=== PATIENT | female | born 1990 | race Caucasian/White ===

== ENCOUNTER 2018-08-12 14:34 | Emergency (ER) | payer BC, SELFPAY ==
[2018-08-12 14:34] VITALS: BP 131/67; PULSE 95; RESP 18; TEMP 37.3; O2SAT 98; BMI 26.3
[2018-08-12] MEDS: Loperamide 2 MG Capsule 4 MG PO (15:10)
[2018-08-12] MEDS: 0.9% Normal Saline 1,000 ML 1000 ML IV (15:10)
[2018-08-12] MEDS: Dicyclomine 10 MG Capsule 20 MG PO (15:10)
[2018-08-12 15:26] LABS: Absolute Lymphocyte Count 0.99 X10^3/ul (0.83-4.51); Absolute Neutrophil Count 5.8 X10^3/uL (2.0-7.7); Eosinophil# 0.01 X10^3/uL; Eosinophils% 0.1 % (0-5); Hematocrit 36.1 % (37-47); Hemoglobin 12.2 g/dl (12.0-15.0); Lymphocyte # 0.99 X10^3/ul (4.0); Lymphocyte % 14.1 % (19-41); Mean Corp Hgb Conc 33.8 g/gl (32-36); Mean Corpuscular Hgb 30.3 pg (27.0-32.0); Mean Corpuscular Volume 89.8 fL (81-99); Mean Platelet Vol. 9.9 fl (6.2-12.0); Monocyte# 0.23 X10^3/uL; Monocyte% 3.3 % (0-10); Neutrophil # 5.76 X10^3/uL (2.7-7.7); Neutrophil % 82.2 % (47-70); Platelet Count 147 K/mm3 (150-450); RBC Distribution Width CV 12.2 % (11.6-14.6); RBC Distribution Width SD 39.8 fl (35.1-43.9); Red Blood Count 4.02 M/mm3 (4.2-5.4)
[2018-08-12 15:30] LABS: Anion Gap 8 (5-15); BUN 8 mg/dL (7-18); BUN/Creat Ratio 18.3 RATIO (10-20); Chloride 108 mmol/L (98-107); Creatinine, Serum 0.44 mg/dL (0.55-1.02); EST Glomerular Filtration Rate 186 mL/min (>60); Est Glom Filt Rate - Afr Amer 225 mL/min (>60); Estimated Creatinine Clearance 161.68 ml/min; Glucose 93 mg/dL (74-106); Potassium 3.1 mmol/L (3.5-5.1); Sodium Level 138 mmol/L (136-145)
[2018-08-12 15:35] LABS: POSITIVE COUNT NO; POSITIVE DIFFERENTIAL NO; POSITIVE MORPHOLOGY NO
[2018-08-12 15:38] LABS: Mucous, Urine 0 SEEN /hpf (<or=2+); Red Blood Cells-Urine 0 SEEN /hpf (0-5)
[2018-08-12 15:49] LABS: Color, Urine Yellow (Yellow); Glucose, Dipstick Normal (Normal); Ketone-Dipstick 5 mg/dl (Negative); Leukocyte Esterase-Dipstick 25 /ul (Negative); Nitrite-Dipstick Negative (Negative); Occult Blood-Urine Negative /ul (Negative); Protein-Dipstick Negative (Negative); Urine Bilirubin Dipstick Negative (Negative); Urine Clarity Clear (Clear); Urine Urobilinogen Normal (Normal)
--- NOTE | 2018-08-12 15:54 | ED.DCSUM_ITS ---
- ER Visit Summary Date of Service: 08/12/18 Chief Complaint: [Diarrhea and abdominal cramping] History of Present Illness: The patient is a 27 F [presents the emergency department with symptoms that started 3 days ago. Patient is having about 5 watery stools per day. She describes diffuse abdominal cramping that is intermittent. Patient concerned because she 17 weeks . She has had nausea but no vomiting. She has not had any fever but she is had some chills. She denies urinary symptoms. She has not felt the baby move yet. Patient is . She has not had any vaginal bleeding.] Physical Examination: [HEENT-PERRLA, EOMI. Cranial nerves II through XII grossly intact. TMs clear. Mucous membranes moist. No adenopathy. Cardiovascular-regular rate and rhythm without murmur or ectopy Lungs-clear to auscultation, chest wall stable without crepitus or subcu em physema Abdomen-normoactive bowel sounds, soft, nontender, no rebound or rigidity, no peritoneal signs. Extremities-intact ?4, normal range of motion, normal pulses, atraumatic] Test Results: [CBC with differential showed a white blood cell count 7.0, hemoglobin 12, hematocrit 36, platelets 147. Chemistries unremarkable other than a depressed potassium at 3.1 for which I did give her 40 mEq of potassium chloride p.o. Urinalysis was unremarkable.] heart tones were 128. Emergency Department Course and Treatment: [Patient was given Imodium and Bentyl.] Patient was given a liter normal same fluid bolus. Treatment Plan: [Patient will be given a prescription for Bentyl and instruct to use Imodium as needed.] Disposition: [Discharged home in stable condition. Patient advised to push fluids and return to ER if worsening abdominal pain, fever, persistent vomiting, dehydration, or condition should worsen anyway.] Impression: [Viral gastroenteritis] This note was generated with WriteOn dictation software. It may contain incorrect words, spelling, and punctuation that were not noted in review of the chart prior to signing ED Disposition - Plan for ED Patient: Referrals: Zoltan Rodriguez DO [Primary Care Provider] -
[2018-08-12 16:02] LABS: Bacteria RARE /hpf (None Seen); Squamous Epithelial Cells - UA 0-5 SEEN /hpf (5-10); White Blood Cells 0-5 SEEN /hpf (0-5)
--- NOTE | 2018-08-12 16:02 | ED.DEP ---
ED Disposition - Plan for ED Patient: Instructions: ED Gastroenteritis Viral Prescriptions: Dicyclomine HCl [Bentyl] 20 mg PO TIDAC #20 cap Referrals: Gris Garay MD [STAFF PHYSICIAN] - 3-5 Days
[2018-08-12 16:10] VITALS: BP 102/60; PULSE 87; RESP 16; O2SAT 100
== END 2018-08-12 16:13 | disposition home or self-care (01) ==
PROVIDERS: Emergency Provider Emergency Medicine; Family Provider Family Medicine; PCP Family Medicine
DX: A08.4 Viral intestinal infection, unspecified (principal)
CPT/HCPCS: 80048; 81001; 85025; 96360; 99284; J7030; A4216

== ENCOUNTER 2019-01-23 10:55 | Inpatient (IN) | payer BC, MEDICAID, SELFPAY ==
[2019-01-23] VITALS (19 sets, daily range): BP systolic 94–127; BP diastolic 36–76; PULSE 67–88; RESP 12–18; TEMP 36.1–37.7; O2SAT 95–100; BMI 33.3
[2019-01-23] MEDS: Lactated Ringers 1,000 ML 999 ML IV (11:35)
[2019-01-23 11:51] LABS: Absolute Lymphocyte Count 1.44 X10^3/uL (0.83-4.51); Absolute Neutrophil Count 7.3 X10^3/uL (2.0-7.7); Basophil# 0.01 X10^3/uL; Basophil% 0.1 % (0-1); Eosinophil# 0.05 X10^3/uL; Eosinophils% 0.5 % (0-5); Hematocrit 37.5 % (37-47); Lymphocyte # 1.44 X10^3/ul (4.0); Lymphocyte % 15.3 % (19-41); Mean Corpuscular Hgb 28.8 pg (27.0-32.0); Mean Corpuscular Volume 90.1 fL (81-99); Mean Platelet Vol. 10.3 fl (6.2-12.0); Monocyte# 0.53 X10^3/uL; Monocyte% 5.6 % (0-10); NRBC Flagged by Analyzer 0 % (0-5); Neutrophil # 7.33 X10^3/uL (2.7-7.7); Neutrophil % 77.8 % (47-70); Platelet Count 195 K/mm3 (150-450); RBC Distribution Width CV 13.7 % (11.6-14.6); RBC Distribution Width SD 44.5 fl (35.1-43.9); Red Blood Count 4.16 M/mm3 (4.2-5.4); White Blood Count 9.4 K/mm3 (4.4-11.0)
--- NOTE | 2019-01-23 12:17 | PCM.PN.BLA ---
Progress Note I have re-examined the patient. There are no clinical changes since date of exam.
[2019-01-23] MEDS: Cefazolin 2 GM in 0.9% Normal Saline 100 ML IV (12:32)
[2019-01-23] MEDS: Oxytocin 30 units/NS 500 ml 30 UNITS/500 ML IV.SOLN 167 UNITS IV (12:51)
--- NOTE | 2019-01-23 13:14 | OP.PCM_ITS ---
Report of Operation Date of Procedure: 01/23/19 Pre-Operative Diagnosis: term elective repeat c/s Post-Operative Diagnosis: Same, live female infant Surgery/Procedure Performed:: repeat LTCS Description of Surgical Findings:: normal tubes and ovaries bilaterally - no complications meat boner and slicer: Francine Chilel Type of Anesthesia:: Spinal Delivery Classification: Scheduled Final PAYTON: 01/19/19 Final PAYTON Source: LMP Gestational age: 40 Weeks and 4 Days Indications for : Repeat Elective Description of Procedure: Operative note: After informed consent was obtained the patient was taken to the operating room she was given spinal anesthesia. He was placed in the supine position. She was then prepped and draped in normal sterile fashion. Once spinal anesthesia was found to be adequate skin incision was made with a scalpel in a Pfannenstiel fashion. It was carried down to the underlying layer of the fascia. Fascia was then incised midline with scapel and extended laterally using curved ruggiero. 2 straight Chichester's were placed in the superior aspect of the fascial edge and the rectus muscles were dissected off sharply. Attention was then turned to the inferior aspect where again the fascial edge was grasped with 2 straight Chichester clamps tented up and the rectus muscle dissected off sharply. At this time the rectus muscles were grasped in the midline using 2 Allis clamps and scalpel was used to separate the rectus muscles. Using blunt force the peritoneum was then entered. Metzenbaums were used to take down the rectus muscles inferiorly as well as the peritoneum. At this time the vesicouterine peritoneum was identified. Metzenbaum scissors were used to create a bladder flap and then taken down digitally. Uterine incision was made in a low transverse fashion with the scalpel and then entered bluntly. Gentle opposing traction was placed to extend the uterine incision. The membranes were ruptured amniotic fluid clear. 's head was then brought to the uterine incision was delivered atraumatically followed by the rest 's body. At this time delayed cord clamping was performed mouth nose were suctioned. Infant was then handed to the waiting nursery team. The placenta was then removed with gentle traction. The uterus was removed from the intra-abdominal cavity is wrapped in a moist lap. He was cleared of all clots and debris using a moist lap. Ring clamps were placed on the uterine angles. #1 Vicryl suture was used in a running locked fashion for the first layer. Followed by second imbricating layer with #1 Vicryl. At this time then the uterus was placed back into abdominal cavity uterine incision was evaluated and noted to be of good hemostasis. Tubes and ovaries were evaluated they were normal. The peritoneum was grasped with Kellys. Peritoneum was reapproximated using #2 Vicryl suture in a running fashion. Also was evaluated and the oozing was coagulated using the Bovie. Good hemostasis was appreciated. Rita was placed over the muscle. The fascia was then reapproximated using #1 Vicryl in a running fashion. Subcutaneous layer was evaluated and Bovie was used for any small oozing that was noted per #2-0 plain gut suture was then used to reapproximate the subcutaneous layer 4-0 Monocryl was used to reapproximate the skin in a subcutaneous fashion. Dry sterile dressing was applied. Instrument lap needle count were correct ?2. Anticipated normal postoperative course for this patient. Amniotic Membrane Rupture Type: Artificial Amniotic Fluid Description: Clear Placenta Disposition: [facility] Drain: Ross to straight drain Cord Entanglement: None Cord Vessel Description: 3 Vessels Esitmated Blood Loss (ml): 700 Infant Gender: Female (1 minute): 9 (5 minute): 9 Delayed cord clamping: Yes Pre-op Antibiotic Given: Ancef 2 grams IV x1 Pt instructed on risks of surgery: Bleeding, Anesthesia Risks, Infection, Need for Future C-Sections, Injury to surrounding structure(s) including bowel and bladder Complications: None - Admit VTE Documentation VTE Present on Admission: Yes VTE Mechan Device Prophylaxis: SCD's VTE Pharm Prophylaxis ordered?: Yes
[2019-01-23] MEDS: Lactated Ringers 1,000 ML 100 ML IV ×2 (13:35→19:28)
[2019-01-23] MEDS: Lactated Ringers 500 ML 999 ML IV (14:00)
[2019-01-23] MEDS: Ondansetron 4 MG/2 ML Vial IV (15:50)
[2019-01-23] MEDS: Sodium Citrate/Citric Acid 30 ML UDC PO (16:05)
[2019-01-23] MEDS: proMETHazine 25 MG/ML Syringe 12.5 MG IV (18:21)
[2019-01-23] MEDS: Ketorolac 30 MG/ML Syringe IV (18:22)
[2019-01-24] VITALS (8 sets, daily range): BP systolic 107–121; BP diastolic 50–61; PULSE 67–84; RESP 16–18; TEMP 36.6–37.2; O2SAT 97–100
[2019-01-24] MEDS: Ketorolac 30 MG/ML Syringe IV ×4 (00:14→17:27)
[2019-01-24] MEDS: 0.9% Saline Lock 10 ML Syringe IV ×3 (05:30→17:27)
[2019-01-24] MEDS: Enoxaparin 40 MG/0.4 ML Syringe SC (05:49)
[2019-01-24] MEDS: Acetaminophen 500 MG Tablet 1000 MG PO ×3 (05:57→22:26)
[2019-01-24 06:00] LABS: Hematocrit 33.9 % (37-47); Hemoglobin 10.8 g/dL (12.0-15.0); Mean Corp Hgb Conc 31.9 g/dL (32-36); Mean Corpuscular Hgb 29.3 pg (27.0-32.0); Mean Corpuscular Volume 92.1 fL (81-99); Mean Platelet Vol. 10.6 fl (6.2-12.0); Platelet Count 156 K/mm3 (150-450); RBC Distribution Width CV 13.6 % (11.6-14.6); RBC Distribution Width SD 46.3 fl (35.1-43.9); Red Blood Count 3.68 M/mm3 (4.2-5.4); White Blood Count 9.6 K/mm3 (4.4-11.0)
--- NOTE | 2019-01-24 07:56 | PCM.PN.OB ---
Subjective: pt seen at bedside, doing well. pt reports good pain control. lochia mild. Denies CP, SOB, dizziness. Lochia mild. Breast feeding - Physical Exam General: Alert, Oriented x3 Abdomen: Soft, Non-Distended, - - fundus firm . incision site dressing dry and intact Extremities: No Calf Tenderness Neurological: Cranial nerves II-XII grossly intact Vital Signs Temp Pulse Resp BP Pulse Ox 97.8 F 80 16 107/54 L 98 01/24/19 04:10 01/24/19 06:00 01/24/19 06:00 01/24/19 04:10 01/24/19 06:00 Oxygen Delivery Method Room Air Weight: 79.946 kg Body Mass Index (BMI) 33.3 Intake and Output for Last 24 Hours 01/22/19 01/23/19 01/24/19 23:59 23:59 23:59 Intake Total 1651 / 1651 1790 / 1790 Output Total 800 / 800 1000 / 1000 Balance 851 / 851 790 / 790 Laboratory Tests Past 24 Hrs 01/23/19 01/23/19 01/24/19 11:30 11:30 05:45 WBC 9.4 9.6 RBC 4.16 L 3.68 L Hgb 12.0 10.8 L Hct 37.5 33.9 L MCV 90.1 92.1 MCH 28.8 29.3 MCHC 32.0 31.9 L RDW Std Deviation 44.5 H 46.3 H RDW Coeff of Em 13.7 13.6 Plt Count 195 156 MPV 10.3 10.6 Immature Gran % (Auto) 0.700 Neut % (Auto) 77.8 H Lymph % (Auto) 15.3 L [place] % (Auto) 5.6 Eos % (Auto) 0.5 Baso % (Auto) 0.1 Absolute Neuts (auto) 7.3 Absolute Lymphs (auto) 1.44 Absolute Nucleated RBC 0.00 Nucleated RBC % 0 Blood Type A POSITIVE Antibody Screen NEGATIVE Medical Necessity - Tobacco Use Smoking Status: Never smoker Assessment/Plan POD#1, doing well routine care dc oneill abdominal binder ambulation today pain mgmt
[2019-01-25] MEDS: Ketorolac 30 MG/ML Syringe IV ×2 (00:49→05:53)
[2019-01-25] MEDS: 0.9% Saline Lock 10 ML Syringe IV ×2 (00:50→05:53)
[2019-01-25 01:05] VITALS: BP 139/70; PULSE 90; RESP 18; TEMP 36.9
--- NOTE | 2019-01-25 01:43 | NURSING ---
Bladder scanned d/t Pt c/o urgency. Bladder scan result >999ml. Will notify
[2019-01-25] MEDS: Enoxaparin 40 MG/0.4 ML Syringe SC (05:53)
--- NOTE | 2019-01-25 08:34 | PCM.PN.OB ---
Subjective: pt seen at bedside, doing well. pt denies concerns at this time. oneill back in place due to retention. bottle feeding. lochia mild. pain well controlled - Physical Exam General: Alert, Oriented x3 Abdomen: Soft, Non-Distended, - - incision dressing dry and intact Extremities: No Calf Tenderness Vital Signs Temp Pulse Resp BP Pulse Ox 98.5 F 90 18 139/70 H 97 01/25/19 01:05 01/25/19 01:05 01/25/19 01:05 01/25/19 01:05 01/24/19 14:00 Oxygen Delivery Method Room Air Weight: 79.946 kg Body Mass Index (BMI) 33.3 Intake and Output for Last 24 Hours 01/23/19 01/24/19 01/25/19 23:59 23:59 23:59 Intake Total 1651 / 1651 1790 / 1790 Output Total 800 / 800 1750 / 1750 1100 / 1100 Balance 851 / 851 40 / 40 -1100 / -1100 Medical Necessity - Tobacco Use Smoking Status: Never smoker Assessment/Plan POD#2, doing well- urinary retention 1) dc oneill at 12p 2) dc toradol 3) ambulation- if not able to void will dc home with oneill or can stay until tomorrow if needed . 4) plan for dc today
--- NOTE | 2019-01-25 08:43 | PCM.DCCSEC ---
Discharge Diet: No Restrictions Discharge Activity: Return to Normal Activity, May Not Drive - for 2 weeks, May not drive while taking narcotic pain medications., May Shower, May Take a Tub Bath - in 7 days. May resume sexual activity in: 4-6 weeks Lifting Restrictions: 20 pounds Additional Activity Instructions:: Nothing in the vagina for 4-6 weeks. You may return to work/school in 6 weeks. Call your doctor if your incision/area has: Continuous Slow Oozing, Sudden Increased Bleeding, Increased Pain/ Swelling, Increased Redness, Foul Smelling Discharge Call your doctor if you observe: Fever of 101 or Higher, Using more than one pad per hour - for 2 hours Suture Line Care: Avoid Pulling/Pushing, Avoid Pinching/Bending Cleanse incision/area with: Keep Dressing Clean & Dry Additional Instructions: If you experience any of the following, contact your healthcare provider. Bleeding that soaks a pad every hour for 2 hours Fever 100.4 or higher Unrelieved incision or abdominal pain Swelling, redness, discharge or bleeding from your incision or episiotomy site Your incision begins to separate Problems urinating (including inability to urinate or burning while urinating). Visual changes Severe headache Flu-like symptoms Pain or redness in one of both of your breasts Pain, warmth, tenderness or swelling in your legs, especially the calf area Frequent nausea and vomiting Symptoms of depression or anxiety If you experience any of the following, call 911 or go to the nearest Emergency Room. Chest pain Problems breathing Seizure activity Partial or complete paralysis of a body part, slurred speech, weakness or drooping of the face, or a sudden inability to walk or hold your balance Allergies/Adverse Reactions: Allergies No Known Allergies Allergy (Verified 01/23/19 11:49) Medications to take at Discharge Vits [Prenatabs FA ] 1 tab PO DAILY 04/23/16 Dicyclomine HCl [Bentyl] 20 mg PO TIDAC #20 cap 08/12/18 Ibuprofen [Motrin] 600 mg PO Q6H PRN PRN #30 tab 01/25/19 Oxycodone HCl/Acetaminophen [Percocet 5/325] 1 tablet PO Q4H PRN PRN 7 Days #20 tablet 01/25/19 Senna/Docusate Sodium [Senokot-S] 1 tab PO DAILY PRN #20 tab 01/25/19 SimETHICONE [Mylicon] 80 mg PO PCHS PRN #30 tab 01/25/19 The following prescriptions were given: Ibuprofen [Motrin] 600 mg PO Q6H PRN PRN #30 tab PRN Reason: Mild Pain (-09/17) Transmission Status: Received by [id number] SimETHICONE [Mylicon] 80 mg PO PCHS PRN #30 tab PRN Reason: Indigestion/stomach pain Transmission Status: Received by [facility] Oxycodone HCl/Acetaminophen [Percocet 5/325] 1 tablet PO Q4H PRN PRN 7 Days #20 tablet PRN Reason: Pain Transmission Status: Sent to [email or web address] Senna/Docusate Sodium [Senokot-S] 1 tab PO DAILY PRN #20 tab PRN Reason: Constipation Transmission Status: Received by [facility] Follow-Up: Call to make an appointment with your doctor for an incision check in 1-2 weeks. You will also need a 6 week post- follow up appointment. Test results from this visit will be discussed in further detail at your follow-up appointment, if applicable. Please Follow Up With: Gris Garay MD - Call to make an appointment for an incision check in 1-2 [phone] When: You will need a post- check in 6 weeks. Primary Care Physician: Zoltan Rodriguez DO [Primary Care Provider] -
[2019-01-25 08:55] VITALS: BP 127/67; PULSE 75; RESP 16; TEMP 36.9; O2SAT 99
[2019-01-25] MEDS: Acetaminophen 500 MG Tablet 1000 MG PO (10:01)
[2019-01-25 12:00] VITALS: BP 119/76; PULSE 84; RESP 16; TEMP 37.6; O2SAT 97
[2019-01-25 13:50] VITALS: BP 119/76; PULSE 84; RESP 84; TEMP 37.6; O2SAT 97
[2019-01-25] MEDS: oxyCODONE 5 MG Tablet PO (14:20)
== END 2019-01-25 14:30 | disposition home or self-care (01) | DRG 788 ==
PROVIDERS: Admitting Provider Obstetrics & Gynecology; Family Provider Family Medicine; PCP Family Medicine; Referring Provider Obstetrics & Gynecology; Visit Provider Obstetrics & Gynecology
PROC: (CPT 59514; principal; 2019-01-23 11:45)
DX: O65.5 Obstructed labor due to abnormality of maternal pelvic organs (principal); O34.211 Maternal care for low transverse scar from previous cesarean delivery; Z37.0 Single live birth; Z3A.40 40 weeks gestation of pregnancy
CPT/HCPCS: 85025; 85027; 86850; 86900; 99218; J7120; A4216; G0378; J2405

== ENCOUNTER 2023-02-16 22:04 | Emergency (ER) | payer BC, SELFPAY ==
[2023-02-16 22:05] VITALS: BP 149/90; PULSE 120; RESP 18; TEMP 37.2; O2SAT 98; BMI 29.7
[2023-02-16 23:15] LABS: Bacteria 0 SEEN /hpf (None Seen); Mucous, Urine 0 SEEN /hpf (<or=2+); Red Blood Cells-Urine 0 SEEN /hpf (0-5)
[2023-02-16 23:18] LABS: Color, Urine Yellow (Yellow); Glucose, Dipstick Normal (Normal); Ketone-Dipstick 15 mg/dl (Negative); Leukocyte Esterase-Dipstick 500 /ul (Negative); Nitrite-Dipstick Negative (Negative); Occult Blood-Urine Negative /ul (Negative); Protein-Dipstick Negative (Negative); Urine Bilirubin Dipstick Negative (Negative); Urine Clarity Clear (Clear); Urine Urobilinogen Normal (Normal)
[2023-02-16 23:22] VITALS: BP 121/55; PULSE 65; RESP 17; O2SAT 99
[2023-02-16 23:23] LABS: Squamous Epithelial Cells - UA 5-10 SEEN /hpf (5-10)
[2023-02-16 23:24] LABS: White Blood Cells 0-5 SEEN /hpf (0-5)
--- NOTE | 2023-02-16 23:28 | RAD_ITS ---
INDICATION: pain EXAMINATION/TECHNIQUE: X-RAY - RIGHT XR Shoulder Min 2 Views COMPARISON: None. FINDINGS: SOFT TISSUES: Unremarkable. BONES/JOINTS: No fracture or dislocation. No significant degenerative changes. No erosive changes. RAD/Shoulder min 2 Views IMPRESSION: Unremarkable views of the right shoulder. Electronically Signed: Rui Jones DO at 23:41 EDT ,
--- NOTE | 2023-02-16 23:28 | RAD_ITS ---
INDICATION: fever EXAMINATION/TECHNIQUE: X-RAY - XR Chest 1 View COMPARISON: None. FINDINGS: LINES/DEVICES: None. LUNGS: No consolidation or evidence of an effusion. No evidence of edema or a pneumothorax. MEDIASTINUM AND CARDIOVASCULAR STRUCTURES: Cardiac silhouette is normal in size and contour. Mediastinum is unremarkable. BONES AND SOFT TISSUES: No acute abnormality. RAD/Chest 1 View IMPRESSION: No evidence of cardiopulmonary disease. Electronically Signed: Rui Jones DO at 23:41 EDT ,
[2023-02-16 23:29] LABS: Absolute Lymphocyte Count 0.46 X10^3/uL (0.83-4.51); Absolute Neutrophil Count 10.3 X10^3/uL (2.0-7.7); Basophil# 0.02 X10^3/uL; Basophil% 0.2 % (0-1); Hematocrit 39.7 % (37-47); Hemoglobin 13.2 g/dL (12.0-15.0); Lymphocyte # 0.46 X10^3/ul (0.83-4.51); Mean Corp Hgb Conc 33.2 g/dL (32-36); Mean Corpuscular Hgb 30.4 pg (27.0-32.0); Mean Corpuscular Volume 91.5 fL (81-99); Mean Platelet Vol. 9.8 fl (6.2-12.0); Monocyte# 0.59 X10^3/uL; Monocyte% 5.2 % (0-10); NRBC Flagged by Analyzer 0 % (0-5); Neutrophil # 10.29 X10^3/uL (2.7-7.7); Neutrophil % 90.2 % (47-70); POSITIVE DIFFERENTIAL YES; Platelet Count 187 K/mm3 (150-450); RBC Distribution Width CV 11.3 % (11.6-14.6); RBC Distribution Width SD 38.5 fl (35.1-43.9); Red Blood Count 4.34 M/mm3 (4.2-5.4); White Blood Count 11.4 K/mm3 (4.4-11.0)
[2023-02-16 23:39] LABS: Differential Indicated SCAN CRITERIA MET
[2023-02-16 23:48] LABS: ALB/GLOB Ratio 1.1 RATIO (0.9-2.4); AST(SGOT) 11 U/L (15-37); Alanine Aminotransfer ALT/SGPT 21 U/L (13-56); Albumin, Serum 4.2 g/dL (3.2-5.0); Alkaline Phosphatase 59 U/L (45-117); Anion Gap 9 (5-15); BUN 11 mg/dL (7-18); BUN/Creat Ratio 11.7 RATIO (10-20); Calcium,Total 9.4 mg/dL (8.5-10.1); Chloride 103 mmol/L (98-107); Creatinine, Serum 0.94 mg/dL (0.55-1.02); EST Glomerular Filtration Rate 74 mL/min (>60); Est Glom Filt Rate - Afr Amer 90 mL/min (>60); Estimated Creatinine Clearance 69.21 ml/min; Globulin 3.7 g/dL (2.2-4.2); Glucose 129 mg/dL (74-106); Potassium 3.5 mmol/L (3.5-5.1); Protein, Total 7.9 g/dL (6.4-8.2); Sodium Level 138 mmol/L (136-145)
[2023-02-17] MEDS: Ketorolac 15 MG/ML Vial IV
--- NOTE | 2023-02-17 00:02 | EX.ED.UPPERE ---
HPI History of Present Illness Chief Complaint: Upper Extremity Injury Narrative Narrative: 32-year-old female presenting with right shoulder pain. She states that she moved a washer despite trimming it a little bit the other day and did not remember hurting herself but now complains of pain in the right anterior shoulder and the axilla. She states that her did hurts to put deodorant on. She does have some pain with range of motion but she is able to range it some. Patient denies any direct trauma. She states she is just felt off for a couple of days. She feels like she has a fever but has not checked her temperature. She does state that she had some dysuria and has been treating herself with [id number] medicine for which she thought was a yeast infection. She is vomiting or nausea. She denies cough or shortness of breath. She denies abdominal pain. She has no diarrhea or constipation. No vaginal complaints. PFSH PFSH Medical History no medical history Home Medications ibuprofen 600 mg tablet 600 mg PO Q6H PRN PRN Mild Pain (-09/17) #30 tabs 01/25/19 [Rx Last Taken Unknown] Allergy/AdvReac Type Severity Reaction Status Date / Time No Known Allergies Allergy Verified 02/16/23 22:08 Social History Smoking Status: Never smoker ROS ROS ED Constitutional Constitutional ED: Denies chills, fever(s) or sweats Eyes Eyes: Denies blurry vision or change in vision ENT ENT ED: Denies ear pain or sore throat Cardiovascular Cardiovascular: Denies chest pain, palpitations or racing heartbeat Respiratory/Chest Respiratory/Chest: Reports other Details: Right axillary pain ; Denies cough, dyspnea or sputum Gastrointestinal Gastrointestinal: Denies abdominal pain, constipation, diarrhea, nausea or vomiting Genitourinary Genitourinary ED: Denies dysuria, hematuria or urinary frequency Musculoskeletal Musculoskeletal: Reports other Details: Right shoulder pain ; Denies arthralgias, myalgias or neck pain Integumentary Denies abscess, Abrasions or rash Neurologic Neurologic: Denies headache(s), paresthesias or weakness Psychiatric Psychiatric: Denies anxiety, depression, suicidal ideation or suicidal thoughts Endocrine Endocrinology: Denies polydipsia or polyuria EXAM Physical Exam Const Vital Signs: 02/16/23 22:05 02/16/23 22:53 02/16/23 23:22 Temperature 99.0 F Temperature Source Temporal Pulse Rate 120 H 65 Respiratory Rate 18 17 Respiratory Pattern Normal Blood Pressure 149/90 H 121/55 H Blood Pressure Mean 109 77 Pulse Ox 98 99 Oxygen Delivery Method Room Air Room Air Positive well nourished General Appearance ED: NAD HEENT Reports moist mucous membranes normocephalic and atraumatic Eyes PERRL and EOMs intact bilaterally Chest Wall inspection of chest normal Chest Narrative: There is pain in the right axilla. There is no masses palpated. No lymphadenopathy. Patient has some limitation of range of motion without evidence of a septic arthrosis. No rashes. Resp normal respiratory effort and clear to auscultation bilaterally Auscultation: Negative for rales, rhonchi or wheezes Cardio regular rate and regular rhythm GI non-tender Back/Spine no CVA tenderness Neuro oriented x3 and CN's II-XII intact bilaterally Sensorium / Orientation: alert Motor Exam: strength 5/5 throughout Psych mental status grossly normal Skin Lesions: no lesions Rashes: no rashes MDM MDM MDM Narrative Medical decision making narrative: Patient initially complaining of right axillary pain. She thought she injured herself moving a washer. She does have some pain with range of motion but it is not limited to suggest septic joint. She has felt like she is been a little off this week. She has not had a fever that she knows of but feels as if she is sick. She is complaining of dysuria. I think CBC to assess white blood cell count, hemoglobin, platelets. I obtained a CMP to assess her liver function, renal function, electrolytes. Urinalysis to assess for UTI. COVID and flu were also tested. Patient given IV Toradol. CBC and CMP relatively unremarkable. Urinalysis negative for infection. COVID and flu are negative. X-rays of the chest and the right shoulder on my interpretation show nothing acute. Radiologist services and agrees. Impression: 1. Right shoulder pain 2. Right axillary pain 3. Generalized Lab Data Attestation: I reviewed the patient's lab results. Labs: Laboratory Results - last 24 hr 02/16/23 02/16/23 23:11 23:25 WBC 11.4 H RBC 4.34 Hgb 13.2 Hct 39.7 MCV 91.5 MCH 30.4 MCHC 33.2 RDW Std Deviation 38.5 RDW Coeff of Em 11.3 L Plt Count 187 MPV 9.8 Immature Gran % (Auto) 0.400 Neut % (Auto) 90.2 H Lymph % (Auto) 4.0 L [place] % (Auto) 5.2 Eos % (Auto) 0.0 Baso % (Auto) 0.2 Absolute Neuts (auto) 10.3 H Absolute Lymphs (auto) 0.46 L Nucleated RBC % 0 Sodium 138 Potassium 3.5 Chloride 103 Carbon Dioxide 26.0 Anion Gap 9 BUN 11 Creatinine 0.94 Estim Creat Clear Calc 69.21 Est GFR (MDRD) Af Amer 90 Est GFR (MDRD) Non-Af 74 BUN/Creatinine Ratio 11.7 Glucose 129 H Calcium 9.4 Total Bilirubin 0.30 AST 11 L ALT 21 Alkaline Phosphatase 59 Total Protein 7.9 Albumin 4.2 Globulin 3.7 Albumin/Globulin Ratio 1.1 Urine Color Yellow Urine Clarity Clear Urine pH 5.0 Ur Specific [place] 1.020 Urine Protein Negative Urine Glucose (UA) Normal Urine Ketones 15 H Urine Occult Blood Negative Urine Nitrite Negative Urine Bilirubin Negative Urine Urobilinogen Normal Ur Leukocyte Esterase 500 H Urine RBC 0 SEEN Urine WBC 0-5 SEEN Ur Squamous Epith Cells 5-10 SEEN Urine Bacteria 0 SEEN Urine Mucus 0 SEEN Radiography Diagnostic Testing: Clinical Impression(s) from Imaging Studies Chest X-Ray 02/16/23 23:28 IMPRESSION: No evidence of cardiopulmonary disease. Electronically Signed: Rui Jones DO at 23:41 EDT , Shoulder X-Ray 02/16/23 23:28 IMPRESSION: Unremarkable views of the right shoulder. Electronically Signed: Rui Jones DO at 23:41 EDT , Discharge Plan Triage Chief Complaint: Upper Extremity Injury ED Provider: Lionel Barrios Dx/Rx/DC Orders Prescriptions: No Action ibuprofen 600 MG tablet 600 mg PO Q6H PRN PRN (Reason: Mild Pain (1-09/17)) Qty: 30 0RF Primary Care Provider: Zoltan Rodriguez Referrals: Zoltan Rodriguez DO [Primary Care Provider] -
== END 2023-02-17 00:21 | disposition home or self-care (01) ==
PROVIDERS: Emergency Provider Student in an Organized Health Care Education/Training Program; PCP Family Medicine; Visit Provider Student in an Organized Health Care Education/Training Program
DX: M25.511 Pain in right shoulder (principal); M79.621 Pain in right upper arm; R30.0 Dysuria
CPT/HCPCS: 71045; 73030; 80053; 81001; 85025; 87428; 96374; 99284; A4216

== ENCOUNTER 2023-02-18 09:01 | Inpatient (IN) | payer BC, SELFPAY ==
[2023-02-18] VITALS (10 sets, daily range): BP systolic 104–154; BP diastolic 58–83; PULSE 104–132; RESP 15–21; TEMP 36.6–39.2; O2SAT 98–100; BMI 30.8; BMI 26.9
--- NOTE | 2023-02-18 09:44 | EKG12_ITS ---
Test Reason : GENERAL Blood Pressure : / mmHG Vent. Rate : 131 BPM Atrial Rate : 131 BPM P-R Int : 130 ms QRS Dur : 074 ms QT Int : 302 ms P-R-T Axes : 046 064 004 degrees QTc Int : 445 ms Sinus tachycardia T wave abnormality, consider inferior ischemia Abnormal ECG Confirmed by SIDRA TELLO, JULIEN ([id number]), advertising editor ELIZABETH PATRICK ([id number]) on 02/21/2023 8:37:12 AM Referred By: Confirmed By:MOIZ VALENTE MD
--- NOTE | 2023-02-18 09:47 | EX.ED.DYSGE1 ---
HPI History of Present Illness Chief Complaint: Fever Informant: patient Narrative Narrative: Patient presents with fevers myalgias malaise nausea vomiting and soft bowel movement. Patient states she felt fine a couple days ago. She had pushed a washer and dryer in her basement. She had gone to hurt her right chest wall. But she was not having the other symptoms. She was seen here. She states since leaving she has developed some nausea and vomiting although she was nauseated when she was here she had no vomiting. She has been having fevers. She states she kind of aches all over. She feels like she has the flu but is just worse than her normal flu. She still has soreness on the right chest wall. She states is not the actual shoulder joint but it is below that in the axilla on the chest wall side. But no redness swelling or rash there and she denies any rashes anywhere else. She denies any travel out of the area or out of the country. No one else she knows of is ill. She has not slight earache on both sides but no significant nasal congestion sore throat or coughing. Although she has nausea vomiting and a soft bowel movement she is not having abdominal pain. She states she thinks she had a yeast infection but she took [id number] Monistat and that is gone. She has just a trace amount of dysuria. But no frequency or urgency. PFSH PFSH Home Medications ibuprofen 600 mg tablet 600 mg PO Q6H PRN PRN Mild Pain (1-3/10) #30 tabs 01/25/19 [Rx Last Taken Unknown] Allergy/AdvReac Type Severity Reaction Status Date / Time No Known Allergies Allergy Verified 02/18/23 09:04 Social History Smoking Status: Never smoker ROS ROS ED ROS Narrative A complete review of systems was performed and is negative except as documented in the history of present illness. Some specific details below. Constitutional: Fevers and chills. Malaise. Myalgias. See history of present illness. EYE: No visual complaints or pain. No color change. ENT: No difficulty swallowing. She does feel as though her face is a little puffy. No pain of throat. She does complain of some bilateral ear pressure. CV: No chest pain or palpitations. Respiratory: No dyspnea. No hemoptysis. No difficulty taking breaths. Not coughing. GI: Please see history of present illness. : No frequency or hematuria. She does have very mild dysuria that is better after treatment for yeast. Musculoskeletal: See history of present illness. Skin: No rash now or at any time during this illness or recently. Nondiaphoretic. Neuro: No weakness or numbness. Endocrine: No polyuria or polydipsia. EXAM Physical Exam Narrative Exam Narrative: CONSTITUTIONAL: Patient is nontoxic in appearance. The patient looks comfortable. HEENT: No notable trauma. Mucous membranes do look dry. No sinus tenderness. No indication of pain with swallowing. Tympanic membranes are both actually very clear and not at all red. No notable fluid. EYES: No conjunctival injection. No proptosis. No pain with range of motion. No photophobia. CARDIOVASCULAR: Tachycardic rate. Regular rhythm. No notable murmur. No JVD. RESPIRATORY: No respiratory distress. Breathing is unlabored. No wheezes. No rhonchi. No rales. No pain with a deep breath. She does have some right chest wall tenderness in the mid and posterior axillary line. But there is no lymph nodes. There is no crepitance. There is no redness or warmth. There is no asymmetry. I see no skin changes or vesicles anywhere in this area. It is sore with motion or palpation but there is no visible or palpable difference. Her discomfort is clearly in the axillary chest wall not in the shoulder joint itself. GASTROINTESTINAL: Not distended. Bowel sounds are normal. No tenderness. No guarding. No rebound. No palpable mass. No bruit. GENITOURINARY: No tenderness over the bladder. No CVA tenderness. MUSCULOSKELETAL: Atraumatic. No peripheral edema. No cord. No tenderness along the deep venous system. No asymmetry. No swollen joints. NEUROLOGICAL: Patient is alert and appropriate. No focal deficit noted. SKIN: No noted rashes. No diaphoresis. PSYCHIATRIC: Patient is calm. Mood is appropriate. Const Vital Signs: 02/18/23 09:02 02/18/23 09:27 02/18/23 09:27 Temperature 102.3 F H 102.5 F H 102.5 F H Temperature Source Temporal Oral Oral Pulse Rate 132 H 125 H 125 H Respiratory Rate 18 16 16 Respiratory Pattern Blood Pressure 113/77 132/81 H 132/81 H Blood Pressure Mean 89 98 98 Pulse Ox 100 100 100 Oxygen Delivery Method Room Air Room Air Room Air 02/18/23 09:27 02/18/23 10:20 02/18/23 11:11 Temperature 102.5 F H 100.7 F H Temperature Source Oral Oral Pulse Rate 130 H 114 H Respiratory Rate 18 15 Respiratory Pattern Normal Blood Pressure 154/83 H 131/75 H Blood Pressure Mean 106 93 Pulse Ox 98 100 Oxygen Delivery Method Room Air Room Air 02/18/23 11:11 02/18/23 12:07 02/18/23 12:07 Temperature 100.7 F H 100.9 F H 100.9 F H Temperature Source Oral Oral Oral Pulse Rate 114 H 119 H 115 H Respiratory Rate 15 19 H 21 H Respiratory Pattern Blood Pressure 131/75 H 121/78 H 121/78 H Blood Pressure Mean 93 92 92 Pulse Ox 100 99 99 Oxygen Delivery Method Room Air Room Air Room Air MDM MDM MDM Narrative Medical decision making narrative: Patient's labs show a slight rise in her white count of 14,000. Hemoglobin and platelets are normal. Patient's electrolytes show no marked abnormalities. Glucose is minimally up at 122. Patient's LFTs show no marked abnormalities. Patient's lactate is within normal at 1.8. Knoop Patient's urine was a little cloudy. She has some leukocyte esterase like last time. She had more so time. But this was not a markedly abnormal urinalysis for the symptoms white count fever that she has. My independent interpretation of her chest x-ray showed no acute process. Because she is having pain on the right side and I cannot say that her UTI findings completely explain her symptoms, we did do CT scan of her chest. This does show actually some inflammatory changes in the area of pain in her right axilla. But there is no abscess. This brings into question is this an early cellulitis that were not seeing externally. This is not matching an acute necrotizing fasciitis because she is going on her third day of symptoms. Although she has a fever and tachycardia her heart rate is coming down as she is given fluids and the fever comes down. She is not hypotensive. She does not have a lactic acidosis. However, with these symptoms, suspected infection and nausea and vomiting I do not think she can go home. She will not be able to tolerate the oral antibiotics. For this reason I think admission is appropriate. My independent her potation of her CT scan of the chest showed some inflammatory changes in the right axilla in the area of her pain but I do not see an abscess. We were trying to get the final result. This ended up taking some time. The results would not show on our computer. Although the images appeared to have been read at 12:02 PM we were not able to get these sent to us on paper until 141. At that point they also now appeared on our computer. I discussed the case with surgery, Dr. Ellis as well as hospitalist. Lab Data Attestation: I reviewed the patient's lab results. Labs: Laboratory Results - last 24 hr 02/18/23 02/18/23 02/18/23 09:40 10:10 10:20 WBC 14.0 H RBC 4.81 Hgb 14.9 Hct 44.3 MCV 92.1 MCH 31.0 MCHC 33.6 RDW Std Deviation 39.6 RDW Coeff of Em 11.6 Plt Count 165 MPV 11.0 Immature Gran % (Auto) 0.700 Neut % (Auto) 91.8 H Lymph % (Auto) 1.6 L [place] % (Auto) 5.0 Eos % (Auto) 0.6 Baso % (Auto) 0.3 Absolute Neuts (auto) 12.8 H Absolute Lymphs (auto) 0.22 L Nucleated RBC % 0 Sodium 133 L Potassium 3.4 L Chloride 98 Carbon Dioxide 26.0 Anion Gap 9 BUN 10 Creatinine 0.97 Est GFR (MDRD) Af Amer 87 Est GFR (MDRD) Non-Af 72 BUN/Creatinine Ratio 10.4 Glucose 122 H Lactic Acid 1.8 Calcium 9.3 Total Bilirubin 0.90 AST 23 ALT 30 Alkaline Phosphatase 70 Total Protein 8.3 H Albumin 3.8 Globulin 4.5 H Albumin/Globulin Ratio 0.8 L Serum , Qual NEGATIVE Urine Color Yellow Urine Clarity Sl. Cloudy Urine pH 5.0 Ur Specific [place] 1.020 Urine Protein 30 H Urine Glucose (UA) Normal Urine Ketones 150 A* Urine Occult Blood 10 H Urine Nitrite Negative Urine Bilirubin 1 H Urine Urobilinogen 1 H Ur Leukocyte Esterase 500 H Urine RBC 0-5 SEEN Urine WBC 25-50 SEEN Ur Squamous Epith Cells 5-10 SEEN Urine Bacteria 1+ Urine Mucus 1+ Miscellaneous Test Cancelled Radiography Diagnostic Testing: Clinical Impression(s) from Imaging Studies Chest X-Ray 02/18/23 10:30 IMPRESSION: Normal x-ray examination of the chest. Electronically Signed: Bartolo Dominguez MD at 10:45 EDT , Chest CT 02/18/23 11:25 IMPRESSION: Inflammatory changes seen in the right axilla with prominence and enlargement of the right axillary lymph nodes. Inflammatory process should be ruled out. No focal abscess or mass lesion is seen. Electronically Signed: Bartolo Dominguez MD at 12:02 EDT , EKG Initial EKG: Comments: Independent interpretation the patient's EKG done for tachycardia shows a sinus rhythm with tachycardic rate at 131. No ventricular ectopy. Nonspecific ST and T wave changes but no sign of acute ST elevation or depression consistent with infarct or ischemia. OK interval, QRS duration and QTc are normal. Management Discussion w/another healthcare provider: Hospitalist and Delivery Mgr Discharge Plan Triage Chief Complaint: Fever ED Provider: Manolo Tolbert Dx/Rx/DC Orders Clinical Impression: Cellulitis of chest wall, Leukocytosis, Failure of outpatient treatment, Nausea and vomiting Prescriptions: No Action ibuprofen 600 MG tablet 600 mg PO Q6H PRN PRN (Reason: Mild Pain (1-3/10)) Qty: 30 0RF Hold Instructions: Order Completed Primary Care Provider: Care Physician,No Primary Referrals: Care Physician,No Primary [Primary Care Provider] - Disposition Disposition: Acute Care Hospital [facility]
[2023-02-18 10:03] LABS: Absolute Lymphocyte Count 0.22 X10^3/uL (0.83-4.51); Absolute Neutrophil Count 12.8 X10^3/uL (2.0-7.7); Basophil# 0.04 X10^3/uL; Basophil% 0.3 % (0-1); Eosinophil# 0.08 X10^3/uL; Eosinophils% 0.6 % (0-5); Hematocrit 44.3 % (37-47); Hemoglobin 14.9 g/dL (12.0-15.0); Lymphocyte # 0.22 X10^3/ul (0.83-4.51); Lymphocyte % 1.6 % (19-41); Mean Corp Hgb Conc 33.6 g/dL (32-36); Mean Corpuscular Volume 92.1 fL (81-99); NRBC Flagged by Analyzer 0 % (0-5); Neutrophil # 12.84 X10^3/uL (2.7-7.7); Neutrophil % 91.8 % (47-70); POSITIVE DIFFERENTIAL YES; Platelet Count 165 K/mm3 (150-450); RBC Distribution Width CV 11.6 % (11.6-14.6); RBC Distribution Width SD 39.6 fl (35.1-43.9); Red Blood Count 4.81 M/mm3 (4.2-5.4)
[2023-02-18 10:12] LABS: Internal QC Validated? YES +Cl - CLEAR BKGD; Pregnancy, Serum, hCG Quali. NEGATIVE Negative
[2023-02-18 10:14] LABS: Differential Indicated SCAN CRITERIA MET
[2023-02-18] MEDS: Ondansetron 4 MG/2 ML Vial IV ×2 (10:22→16:40)
[2023-02-18] MEDS: 0.9% Normal Saline 1,000 ML 1000 ML IV ×2 (10:22→10:25)
[2023-02-18 10:26] LABS: ALB/GLOB Ratio 0.8 RATIO (0.9-2.4); AST(SGOT) 23 U/L (15-37); Alanine Aminotransfer ALT/SGPT 30 U/L (13-56); Albumin, Serum 3.8 g/dL (3.2-5.0); Alkaline Phosphatase 70 U/L (45-117); Anion Gap 9 (5-15); BUN 10 mg/dL (7-18); BUN/Creat Ratio 10.4 RATIO (10-20); Calcium,Total 9.3 mg/dL (8.5-10.1); Chloride 98 mmol/L (98-107); Creatinine, Serum 0.97 mg/dL (0.55-1.02); EST Glomerular Filtration Rate 72 mL/min (>60); Est Glom Filt Rate - Afr Amer 87 mL/min (>60); Globulin 4.5 g/dL (2.2-4.2); Glucose 122 mg/dL (74-106); Potassium 3.4 mmol/L (3.5-5.1); Protein, Total 8.3 g/dL (6.4-8.2); Sodium Level 133 mmol/L (136-145)
[2023-02-18 10:29] LABS: Color, Urine Yellow (Yellow); Glucose, Dipstick Normal (Normal); Leukocyte Esterase-Dipstick 500 /ul (Negative); Nitrite-Dipstick Negative (Negative); Occult Blood-Urine 10 /ul (Negative); Protein-Dipstick 30 mg/dl (Negative); Urine Bilirubin Dipstick 1 mg/dL (Negative); Urine Clarity Sl. Cloudy (Clear); Urine Urobilinogen 1 mg/dl (Normal)
--- NOTE | 2023-02-18 10:30 | RAD_ITS ---
STUDY: X-RAY CHEST REASON FOR EXAM: Female, 32 years old. Fever, pneumonia TECHNIQUE: PA and lateral views of the chest. COMPARISON: None. FINDINGS: EKG electrodes are seen. The lungs are clear and expanded. There is no demonstrated pleural abnormality. Normal size heart. Normal mediastinum and alex. Normal visualized pulmonary arteries. Normal visualized aortic arch and descending thoracic aorta. Normal visualized thoracic spine. Normal visualized ribs, clavicles, and shoulders. There is no demonstrated abnormality of the visualized soft tissue structures of the upper abdomen. RAD/Chest PA and Lateral IMPRESSION: Normal x-ray examination of the chest. Electronically Signed: Bartolo Dominguez MD at 10:45 EDT ,
[2023-02-18 10:31] LABS: Ketone-Dipstick 150 mg/dl (Negative)
[2023-02-18 10:38] LABS: Bacteria 1+ /hpf (None Seen); Red Blood Cells-Urine 0-5 SEEN /hpf (0-5); White Blood Cells 25-50 SEEN /hpf (0-5)
[2023-02-18 10:39] LABS: Mucous, Urine 1+ /hpf (<or=2+); Squamous Epithelial Cells - UA 5-10 SEEN /hpf (5-10)
[2023-02-18 10:51] LABS: Lactic Acid 1.8 mmol/L (0.4-1.9)
[2023-02-18] MEDS: Acetaminophen 500 MG Tablet 1000 MG PO (11:07)
--- NOTE | 2023-02-18 11:25 | CT_ITS ---
STUDY: CT CHEST WITH CONTRAST REASON FOR EXAM: Female, 32 years old. Right chest wall pain, question soft tissue infect RADIATION DOSAGE (If Supplied By Facility): CTDIvol = ( 10.52 ) mGy, DLP = ( 266.11 ) mGycm TECHNIQUE: Transaxial imaging was performed following intravenous administration of IV. Multiplanar coronal and sagittal images were reformatted. Individualized dose optimization techniques were used for this CT. COMPARISON: Comparison is made with prior chest radiograph done earlier today. FINDINGS: CHEST There is evidence of a inflammatory changes in the right axilla with enlarged right axillary lymph nodes. An inflammatory process should be ruled out. The lungs are normal. There is no demonstrated pleural abnormality. Normal heart and pericardium. Normal mediastinum. Normal hilar regions. Normal unenhanced pulmonary arteries. Normal aorta arch and descending thoracic aorta. Normal osseous structures. Fatty infiltration of the liver. CT/Chest WITH Contrast IMPRESSION: Inflammatory changes seen in the right axilla with prominence and enlargement of the right axillary lymph nodes. Inflammatory process should be ruled out. No focal abscess or mass lesion is seen. Electronically Signed: Bartolo Dominguez MD at 12:02 EDT ,
[2023-02-18] MEDS: 0.9% Normal Saline 1,000 ML 999 ML IV (11:33)
--- NOTE | 2023-02-18 15:33 | HP.PCM.HOS_ITS ---
HPI - General General Date of Admission: 02/18/23 HPI Narrative FIFI GORE, is a 32 F who presents to the hospital with an axillary infection. She states that 3 days ago she was moving her washer dryer and noticed some right axillary/shoulder pain. It has progressively gotten worse a nd then she developed fevers and chills over the last 24 to 36 hours. She presented today secondary to continued worsening. She had been seen in the ER yesterday around 1 AM for this pain and at that time her CBC was slightly elevated to 11.4 but initially was felt that she likely had a shoulder strain. CT scan today demonstrates 2 axillary lymph nodes that appear swollen with surrounding stranding consistent with infection. White count is 14 and she is febrile and also tachycardic. She is been having some nausea and vomiting as well and has been unable to keep down any Tylenol. She denies any skin changes on her right breast or in her right arm and she has no signs of infection anywhe re else in her right upper extremity or upper torso. She has been noticing some dysuria and does have a UA consistent with a UTI. She was given a dose of Zosyn in the ER. She also feels that she is swollen everywhere and she has some burning sensation underneath her axilla on the right. PFSH Home Medications ibuprofen 600 mg tablet 600 mg PO Q6H PRN PRN Mild Pain (1-09/17) #30 tabs 01/25/19 [Rx Last Taken Unknown] Allergy/AdvReac Type Severity Reaction Status Date / Time No Known Allergies Allergy Verified 02/18/23 09:04 no significant family history Surgical History (Updated 02/18/23 @ 15:[address] Enoch Casey MD) Status post section Social History Smoking Status: Never smoker ROS Constitutional Constitutional: Reports chills, fatigue and fever(s); Denies malaise Eyes Eyes: Denies blurry vision ENT HEENT: Denies headache(s) or nasal discharge Cardiovascular Cardiovascular: Denies chest pain, dyspnea on exertion or syncope Respiratory/Chest Respiratory/Chest: Denies cough, shortness of breath at rest or shortness of br eath with exertion Gastrointestinal Gastrointestinal: Reports nausea and vomiting; Denies constipation or diarrhea Genitourinary Genitourinary: Reports burning urination; Denies dysuria Neurologic Neurologic: Denies focal weakness, numbness or tremor(s) Psychiatric Psychiatric: Denies anxiety or depression Vital Signs Vital Signs Vital Signs: 02/18/23 09:02 02/18/23 09:27 02/18/23 09:27 Temperature 102.3 F H 102.5 F H 102.5 F H Temperature Source Temporal Oral Oral Pulse Rate 132 H 125 H 125 H Respiratory Rate 18 16 16 Respiratory Pattern Blood Pressure 113/77 132/81 H 132/81 H Blood Pressure Mean 89 98 98 Pulse Ox 100 100 100 Oxygen Delivery Method Room Air Room Air Room Air 02/18/23 09:27 02/18/23 10:20 02/18/23 11:11 Temperature 102.5 F H 100.7 F H Temperature Source Oral Oral Pulse Rate 130 H 114 H Respiratory Rate 18 15 Respiratory Pattern Normal Blood Pressure 154/83 H 131/75 H Blood Pressure Mean 106 93 Pulse Ox 98 100 Oxygen Delivery Method Room Air Room Air 02/18/23 11:11 02/18/23 12:07 02/18/23 12:07 Temperature 100.7 F H 100.9 F H 100.9 F H Temperature Source Oral Oral Oral Pulse Rate 114 H 119 H 115 H Respiratory Rate 15 19 H 21 H Respiratory Pattern Blood Pressure 131/75 H 121/78 H 121/78 H Blood Pressure Mean 93 92 92 Pulse Ox 100 99 99 Oxygen Delivery Method Room Air Room Air Room Air 02/18/23 14:51 02/18/23 14:00 02/18/23 15:00 Temperature 98 F 98 F 98 F Temperature Source Temporal Temporal Temporal Pulse Rate 106 H 106 H 104 H Respiratory Rate 20 H 20 H 20 H Respiratory Pattern Blood Pressure 109/60 109/60 104/58 L Blood Pressure Mean 76 76 73 Pulse Ox 99 99 98 Oxygen Delivery Method Room Air Weight Weight: 168 lb 6.931 oz Body Mass Index (BMI) 30.8 Physical Exam Narrative General: Alert, Oriented x3, Cooperative, diaphoretic HEENT: Atraumatic, PERRLA, EOMI, Normocephalic Oral: Moist Mucosa Neck: Supple, No JVD Lungs: Clear to auscultation, Normal air movement, No rhonchi, No wheeze, No rales Cardiovascular: Tachycardic, Regular Rhythm, Normal S1, Normal S2, No murmurs Abdomen: Soft, Non Tender, Non-Distended, No Hepato-splenomegaly Extremities: No edema, Capillary Refill Less than 3 Seconds, significant axillary pain to palpation on the right with limited upper extremity arm movement due to that pain Skin: No rashes, No breakdown, no obvious signs of infection on her right breast or in her right arm. No signs externally on her axilla other than palpation eliciting pain Musculoskeletal: No Tenderness to Palpation of Joints or Extremities Neurological: Cranial nerves II-XII grossly intact, Motor Exam 5/5 strength throughout, Sensory exam intact to light touch and pain Psych/Mental Status: Normal Affect, Appropriate Results Lab / Micro Data 02/18/23 09:40 02/18/23 09:40 Labs: Laboratory Results - last 24 hr 02/18/23 09:40: WBC 14.0 H, RBC 4.81, Hgb 14.9, Hct 44.3, MCV 92.1, MCH 31.0, MCHC 33.6, RDW Std Deviation 39.6, RDW Coeff of Em 11.6, Plt Count 165, MPV 11.0, Immature Gran % (Auto) 0.700, Neut % (Auto) 91.8 H, Lymph % (Auto) 1.6 L, [place] % (Auto) 5.0, Eos % (Auto) 0.6, Baso % (Auto) 0.3, Absolute Neuts (auto) 12.8 H, Absolute Lymphs (auto) 0.22 L, Nucleated RBC % 0, Sodium 133 L, Potassium 3.4 L, Chloride 98, Carbon Dioxide 26.0, Anion Gap 9, BUN 10, Creatinine 0.97, Est GFR (MDRD) Af Amer 87, Est GFR (MDRD) Non-Af 72, BUN/Creatinine Ratio 10.4, Glucose 122 H, Calcium 9.3, Total Bilirubin 0.90, AST 23, ALT 30, Alkaline Phosphatase 70, Total Protein 8.3 H, Albumin 3.8, Globulin 4.5 H, Albumin/Globulin Ratio 0.8 L, Serum , Qual NEGATIVE 02/18/23 10:10: Lactic Acid 1.8, Miscellaneous Test Cancelled 02/18/23 10:20: Urine Color Yellow, Urine Clarity Sl. Cloudy, Urine pH 5.0, Ur Specific [place] 1.020, Urine Protein 30 H, Urine Glucose (UA) Normal, Urine Ketones 150 A*, Urine Occult Blood 10 H, Urine Nitrite Negative, Urine Bilirubin 1 H, Urine Urobilinogen 1 H, Ur Leukocyte Esterase 500 H, Urine RBC 0-5 SEEN, Urine WBC 25-50 SEEN, Ur Squamous Epith Cells 5-10 SEEN, Urine Bacteria 1+, U rine Mucus 1+ Micro: Microbiology 02/18/23 09:56 Nasal Secretion SARS-CoV-2 & FLU Antigen (Rapid) - Final Radiology Impression Chest X-Ray 02/18/23 10:30 IMPRESSION: Normal x-ray examination of the chest. Electronically Signed: Bartolo Dominguez MD at 10:45 EDT , Chest CT 02/18/23 11:25 IMPRESSION: Inflammatory changes seen in the right axilla with prominence and enlargement of the right axillary lymph nodes. Inflammatory process should be ruled out. No focal abscess or mass lesion is seen. Electronically Signed: Bartolo Dominguez MD at 12:02 EDT , Assessment & Plan Assessment/Plan (1) Lymphadenitis, acute: PLAN: Plan 1. Lymphadenitis/UTI ? Unclear as to the etiology, there is no surrounding chest wall infection or arm infection ? I do not think that her axillary lymph node is swollen because of her UTI ? Continue with Zosyn ? Blood cultures and urine cultures are pending ? Unable to provide oral antibiotics secondary to her nausea and vomiting ? We will provide pain meds and nausea medications as well as IV fluid DVT: Ambulation Charges/Coding Visit Charges Inpatient E&M: 95770 Init Hosp L2
[2023-02-18] MEDS: 0.9% Normal Saline 1,000 ML 100 ML IV (16:30)
[2023-02-18] MEDS: Acetaminophen 325 MG Tablet 650 MG PO (16:40)
[2023-02-18] MEDS: Morphine 2 MG/ML Syringe IV (20:40)
[2023-02-18] MEDS: proCHLORPERazine 10 MG/2 ML Vial 5 MG IV (20:40)
[2023-02-19 01:33] VITALS: BP 113/65; PULSE 123; RESP 16; TEMP 38.1; O2SAT 97
[2023-02-19] MEDS: 0.9% Normal Saline 1,000 ML 100 ML IV ×3 (01:39→22:23)
[2023-02-19] MEDS: Acetaminophen 325 MG Tablet 650 MG PO ×2 (01:39→09:05)
[2023-02-19 05:46] LABS: Absolute Lymphocyte Count 0.41 X10^3/uL (0.83-4.51); Absolute Neutrophil Count 7.2 X10^3/uL (2.0-7.7); Basophil# 0.01 X10^3/uL; Basophil% 0.1 % (0-1); Eosinophil# 0.22 X10^3/uL; Eosinophils% 2.6 % (0-5); Hematocrit 33.8 % (37-47); Lymphocyte # 0.41 X10^3/ul (0.83-4.51); Lymphocyte % 4.9 % (19-41); Mean Corp Hgb Conc 32.5 g/dL (32-36); Mean Corpuscular Hgb 30.6 pg (27.0-32.0); Mean Corpuscular Volume 93.9 fL (81-99); Mean Platelet Vol. 10.2 fl (6.2-12.0); Monocyte# 0.45 X10^3/uL; Monocyte% 5.4 % (0-10); NRBC Flagged by Analyzer 0 % (0-5); Neutrophil # 7.24 X10^3/uL (2.7-7.7); Neutrophil % 86.2 % (47-70); POSITIVE DIFFERENTIAL YES; POSITIVE MORPHOLOGY YES; Platelet Count 139 K/mm3 (150-450); RBC Distribution Width CV 11.6 % (11.6-14.6); RBC Distribution Width SD 40.8 fl (35.1-43.9); White Blood Count 8.4 K/mm3 (4.4-11.0)
[2023-02-19 06:04] LABS: Differential Indicated SCAN CRITERIA MET
[2023-02-19 06:32] VITALS: BP 106/58; PULSE 92; RESP 16; TEMP 36.8; O2SAT 98
[2023-02-19 06:50] LABS: Anion Gap 7 (5-15); BUN 7 mg/dL (7-18); BUN/Creat Ratio 10.3 RATIO (10-20); Calcium,Total 7.6 mg/dL (8.5-10.1); Chloride 110 mmol/L (98-107); Creatinine, Serum 0.68 mg/dL (0.55-1.02); EST Glomerular Filtration Rate 108 mL/min (>60); Est Glom Filt Rate - Afr Amer 131 mL/min (>60); Estimated Creatinine Clearance 108.85 ml/min; Glucose 92 mg/dL (74-106); Potassium 3.2 mmol/L (3.5-5.1); Sodium Level 141 mmol/L (136-145)
[2023-02-19 07:07] LABS: Differential Comment SCANNED
[2023-02-19 08:45] VITALS: BP 111/59; PULSE 110; RESP 16; TEMP 37.6; O2SAT 98
[2023-02-19] MEDS: Potassium Chloride Oral Tablet 20 MEQ 40 MEQ PO (09:06)
[2023-02-19 09:14] LABS: Magnesium 1.8 mg/dL (1.6-2.6)
[2023-02-19] MEDS: Ibuprofen 600 MG Tablet PO ×2 (11:43→17:33)
[2023-02-19] MEDS: Ondansetron 4 MG/2 ML Vial IV (13:49)
--- NOTE | 2023-02-19 15:10 | CASEMGMT ---
BALTAZAR MENDEZ Discharge Planning Assessment: Face to Face with patient for initial transition planning/care coordination assessment. BALTAZAR MENDEZ introduced self and role at [facility], pt alert, voices understanding, and is agreeable to participating in assessment with and mother at bedside. Care providers, pharmacy, and demographics verified. Admitting dx: lymphadenitis, UTI PCP: none; PCP list provided to patient and pt encouraged to establish with PCP, pt voiced understanding Specialists: none [facility]erred [facility] Insurance: [employer] Prescription Benefit:yes LNOK: spouse Connor Living Arrangements: pt lives with spouse and states she is independent with all ADLs including self care and household tasks. Transportation: pt drives and denies any transportation concerns DME/SNF/HHC: none Plan: Return home with the support of spouse/family Rosalva Burnett RN CM
--- NOTE | 2023-02-19 15:12 | PN.HOSP_ITS ---
Reason for Visit Reason for Visit: Diagnoses Acute lymphadenitis, unspecified (02/18/23) Subjective Subjective Patient seen at bedside, grandmother present. Patient states that she feels better today than she did yesterday. She has been able to get down a small amount of food and drink. No episodes of vomiting over the last 24 hours. She continues to feel mildly feverish and quite fatigued. She continues to have pain and discomfort in the right armpit area. She denies any shortness of breath or chest pain. No other acute concerns. Objective Data Objective Data Vital Signs: Vital Signs Temp Pulse Resp BP Pulse Ox O2 Del Method 99.7 F H 110 H 16 111/59 L 98 Room Air 02/19/23 08:45 02/19/23 08:45 02/19/23 08:45 02/19/23 08:45 02/19/23 08:45 02/19/23 08:53 Oxygen Delivery Method Room Air Weight: 73.482 kg Body Mass Index (BMI) 26.9 Intake & Output: Intake and Output for Last 24 Hours 02/17/23 02/18/23 02/19/23 23:59 23:59 23:59 Intake Total 2150 / 2350 2915 / 2915 Output Total 350 / 350 Balance 2150 / 2200 2565 / 2565 Lab / Micro Data Attestation: I reviewed the patient's lab results. 02/19/23 05:05 02/19/23 05:05 Labs: Laboratory Results - last 24 hr 02/19/23 05:05: WBC 8.4, RBC 3.60 L, Hgb 11.0 L, Hct 33.8 L, MCV 93.9, MCH 30.6, MCHC 32.5, RDW Std Deviation 40.8, RDW Coeff of Em 11.6, Plt Count 139 L, MPV 10.2, Immature Gran % (Auto) 0.800, Neut % (Auto) 86.2 H, Lymph % (Auto) 4.9 L, B[place] % (Auto) 5.4, Eos % (Auto) 2.6, Baso % (Auto) 0.1, Absolute Neuts (auto) 7.2, Absolute Lymphs (auto) 0.41 L, Nucleated RBC % 0, Differential Comment SCANNED, Sodium 141, Potassium 3.2 L, Chloride 110 H, Carbon Dioxide 24.0, Anion Gap 7, BUN 7, Creatinine 0.68, Estim Creat Clear Calc 108.85, Est GFR (MDRD) Af Amer 131, Est GFR (MDRD) Non-Af 108, BUN/Creatinine Ratio 10.3, Glucose 92, Calcium 7.6 L, Magnesium 1.8 Micro: Microbiology 02/18/23 10:20 Urine, Clean Catch Urine Culture - Preliminary GNR lactose automotive customer experience advisor 02/18/23 09:56 Nasal Secretion SARS-CoV-2 & FLU Antigen (Rapid) - Final Physical Exam Const alert, oriented x3, no apparent distress and average body habitus Constitutional Narrative: Pleasant female, appears fatigued, resting comfortably in bed, conversing normally, no acute distress. General Appearance: cooperative and comfortable HEENT normocephalic, head/scalp atraumatic, hearing grossly normal bilaterally, nasal mucous membranes and turbinates normal and moist oral mucous membranes Eyes PERRL, EOMs intact bilaterally and conjunctivae normal Neck full ROM and supple Lymph Lymphatic Narrative: Mild lymphadenopathy noted in right armpit area. Chest inspection of chest normal Resp normal respiratory effort, normal air movement, no use of accessory muscles and clear to auscultation bilaterally Cardio regular rate, regular rhythm, no murmurs and peripheral pulses 2+ throughout GI normal to inspection, nondistended, normoactive bowel sounds, soft to palpation, non-tender and non-distended Back/Spine normal ROM Extremity normal to inspection, full ROM and no pedal edema Skin no rashes or lesions noted Psych mental status grossly normal Assessment & Plan Assessment/Plan (1) Lymphadenitis, acute: PLAN: Plan Patient is a 32-year-old female with no significant past medical history who presented to [facility] on 02/18/2023 with right axillary pain, nausea/vomiting and fevers/chills. Admitted for further management. 1. Sepsis without shock, right axillary lymphadenopathy, concern for UTI ?Suspect infection most likely secondary to microbial entry through small right- sided chest wall or armpit break of skin, as primary source of discomfort is right axillary region and there was trauma to this area when she was moving her washer and dryer recently. Less likely secondary to UTI as she has no UTI?related symptoms. CT chest with contrast on admission showed inflammatory changes in the right axilla with a large right axillary lymph nodes. Blood cultures with no growth to date. UA with 500 leukocyte esterase, negative nitrates, 1+ bacteria. Urine culture with preliminary result of GNR lactose automotive customer experience advisor of greater than 100,000 colonies. Continue IV Zosyn for now. Suspect patient will be ready for discharge tomorrow; will plan to de-escalate to p.o. antibiotics tomorrow and decide on which antibiotic and course length once all culture data is back. Tylenol and ibuprofen as needed for pain control. DVT prophylaxis: Ambulation CODE STATUS: Full code, verified Total clinical time spent by myself addressing the patient's medical issues, reviewing all of the data, and collaborating with patient's care team: 35 minutes. Charges/Coding Visit Charges Inpatient E&M: 18845 Subs Hosp L2
[2023-02-19] MEDS: 0.9% Saline Lock 10 ML Syringe IV (17:32)
[2023-02-19 20:51] VITALS: BP 101/57; PULSE 92; RESP 16; TEMP 36.6; O2SAT 100
[2023-02-20 05:27] VITALS: BP 110/68; PULSE 98; RESP 16; TEMP 37; O2SAT 97
[2023-02-20] MEDS: Acetaminophen 325 MG Tablet 650 MG PO (05:33)
--- NOTE | 2023-02-20 09:53 | PCM.DC ---
Discharge Instructions Diet Discharge Diet: No restrictions Activity Discharge Activity: Return to Normal Activity Weight Bearing Status: Full weight bearing Discharge Plan Admission Admit Date/Time: 02/18/23 15:28 Primary Reason for Your Visit: axillary lymphadenitis Attending Provider: Ronal Trent Primary Care Provider: Care Physician,No Primary Consulting Providers: Enoch Casey Instructions Additional Instructions / Restrictions: Please establish with a PCP as we discussed. Complete a 7-day course of Omnicef, stop date 02/24. Use Tylenol and/or ibuprofen for symptomatic pain relief. Discharge Orders/Prescriptions Prescriptions: New cefdinir 300 mg Capsule 300 mg PO Q12 5 Days Qty: 9 0RF Discontinued ibuprofen 600 MG tablet 600 mg PO Q6H PRN PRN (Reason: Mild Pain (-09/17)) Qty: 30 0RF Hold Instructions: Order Completed Referrals / Follow Up: Care Physician,No Primary [Primary Care Provider] - Disposition Disposition (needs filled in before D/C Order can be placed): Home, Self Care
[2023-02-20 09:54] VITALS: BP 109/58; PULSE 95; RESP 16; TEMP 36.7; O2SAT 97
--- NOTE | 2023-02-20 09:56 | DS.PCM_ITS ---
Providers Date of Admission: 02/18/23 Date of Discharge: 02/20/23 Primary Care Physician: No Primary Care Phys Reason For Visit: CELLULITIS, NAUSEA VOMITING, LEUKOCYTOSIS, FEVER Diagnosis Discharge Diagnosis (1) Lymphadenitis, acute: Status: Acute Code(s): L04.9 - Acute lymphadenitis, unspecified Medications at Discharge Home Medications cefdinir 300 mg capsule 300 mg PO Q12 5 days #9 caps 02/20/23 Hospital Course Operations None Procedures EKG and - (Chest x-ray, chest CT scan, shoulder x-ray) Summary of Care Provided Minutes Spent on Discharge: 38 Hospital Course: Patient is a 32-year-old female with no significant past medical history who presented to [facility] on 02/18/2023 with right axillary pain, nausea/vomiting and fevers/chills. CT chest with contrast on admission showed inflammatory changes in the right axilla with several enlarged right axillary lymph nodes. There were no signs of overlying cellulitis or infection in the area. There were no notable breaks in the skin. Patient did have a UA with concern for UTI, and urine culture was positive for greater than 100,000 colonies of pansensitive E. coli. On admission, patient was initiated on IV Zosyn and given IV fluids per sepsis protocol with significant improvement in symptoms. She initially was not able to take in any food due to significant nausea and vomiting. By hospital day 2, was tolerating p.o. intake without is talisha. She continued to have mild to moderate right axillary and right chest wall pain/discomfort during admission. This pain was fairly well relieved with ibuprofen and/or Tylenol. She notably had no notable breast lumps. Has no history of breast cancer in the family. Patient was de-escalated to p.o. Omnicef and will complete 7-day course on discharge, stop date of 02/24. She was discharged home in stable condition. Patient did not have PCP at time of discharge but stated that she would intently look for a PCP on discharge and would work to set up an appointment to establish with them in the next 2 to 4 weeks. While it is most likely that patient's enlarged axillary lymph nodes were secondary to an infection, would recommend repeating a chest CT scan in the next 6 to 8 weeks to reassess the area. If there is improvement, patient may need mammography to further rule out breast cancer. Discharge diagnoses: Sepsis with shock, improved Right axillary lymphadenitis E. coli UTI Right axillary and chest wall pain Physical Exam Const alert, oriented x3, no apparent distress and average body habitus Constitutional Narrative: Pleasant female, appears fatigued, resting comfortably in bed, conversing normally, no acute distress. General Appearance: cooperative and comfortable HEENT normocephalic, head/scalp atraumatic, hearing grossly normal bilaterally, nasal mucous membranes and turbinates normal and moist oral mucous membranes Eyes PERRL, EOMs intact bilaterally and conjunctivae normal Neck full ROM and supple Lymph Lymphatic Narrative: Mild lymphadenopathy noted in right armpit area. Chest inspection of chest normal Resp normal respiratory effort, normal air movement, no use of accessory muscles and clear to auscultation bilaterally Cardio regular rate, regular rhythm, no murmurs and peripheral pulses 2+ throughout GI normal to inspection, nondistended, normoactive bowel sounds, soft to palpation, non-tender and non-distended Back/Spine normal ROM Extremity normal to inspection, full ROM and no pedal edema Skin no rashes or lesions noted Psych mental status grossly normal Weight / BMI Weight Weight: 73.482 kg Body Mass Index (BMI) 26.9 ABG / Lab / Microbiology Data 02/19/23 05:05 02/19/23 05:05 Microbiology: Microbiology 02/18/23 10:20 Urine, Clean Catch Urine Culture - Final Escherichia coli 02/18/23 09:56 Nasal Secretion SARS-CoV-2 & FLU Antigen (Rapid) - Final D/C Instructions Discharge Diet: No restrictions Weight Bearing Status: Full weight bearing Meaningful Use Info Meaningful Use Diagnoses (Choose all that apply): None applicable Discharge Plan Admission Admit Date/Time: 02/18/23 15:28 Primary Reason for Your Visit: axillary lymphadenitis Attending Provider: Ronal Trent Primary Care Provider: Care Physician,No Primary Consulting Providers: Enoch Casey Instructions Additional Instructions / Restrictions: Please establish with a PCP as we discussed. Complete a 7-day course of Omnicef, stop date 02/24. Use Tylenol and/or ibuprofen for symptomatic pain relief. Discharge Orders/Prescriptions Prescriptions: New cefdinir 300 mg Capsule 300 mg PO Q12 5 Days Qty: 9 0RF Discontinued ibuprofen 600 MG tablet 600 mg PO Q6H PRN PRN (Reason: Mild Pain (-09/17)) Qty: 30 0RF Hold Instructions: Order Completed Referrals / Follow Up: Care Physician,No Primary [Primary Care Provider] - Disposition Disposition (needs filled in before D/C Order can be placed): Home, Self Care Charges/Coding Visit Charges Inpatient E&M: 22259 Disch Hosp >30min
[2023-02-20] MEDS: Cefdinir 300 MG Capsule PO (09:58)
[2023-02-21 17:07] LABS: West Nile Virus, IgG Negative (Negative); West Nile Virus, IgM Negative (Negative)
== END 2023-02-20 11:10 | disposition home or self-care (01) | DRG 871 ==
LOC: ED 14:56 → MS3 15:46
PROVIDERS: Admitting Provider Family Medicine; Emergency Provider Emergency Medicine; Visit Provider Hospitalist
DX: A41.9 Sepsis, unspecified organism (principal); R65.21 Severe sepsis with septic shock; L03.313 Cellulitis of chest wall; N39.0 Urinary tract infection, site not specified; B96.20 Unspecified Escherichia coli [E. coli] as the cause of diseases classified elsewhere; L04.9 Acute lymphadenitis, unspecified; R07.89 Other chest pain
CPT/HCPCS: 71046; 71260; 80048; 80053; 81001; 83605; 83735; 84703; 85025; 86788; 86789; 87040; 87077; 87086; 87088; 87186; 87428; 93005; 99285; J7030; Q9967; A4216; J2405

== ENCOUNTER 2024-08-27 08:19 | Emergency (ER) | payer OTHER, SELFPAY ==
[2024-08-27 08:21] VITALS: BP 132/77; PULSE 117; RESP 18; TEMP 37.1; O2SAT 100
--- NOTE | 2024-08-27 08:44 | CT_ITS ---
PROCEDURE: ABDOMEN/PELVIS W IV CONT ONLY REASON FOR EXAM: 2 day history of nausea and vomiting. TECHNIQUE: Abdomen and pelvis CT with intravenous contrast. IV CONTRAST: 100 cc of Isovue-300. COMPARISON: None. FINDINGS: Lung bases: Clear Liver: Unremarkable. Gallbladder: Unremarkable. Spleen: Unremarkable. Pancreas: Unremarkable. Adrenals: Unremarkable. Kidneys: Unremarkable. Bladder: Unremarkable. Reproductive Organs: Endometrial thickening. This may be related to the patient's menstrual cycle. Follicles are seen in both ovaries. Bowel: Colonic diverticulosis without diverticulitis. Appendix: Normal. Lymph nodes: No suspicious lymph node enlargement. Vasculature: Major vascular structures are unremarkable. Peritoneum / Retroperitoneum: No ascites. No free air. Bones: Unremarkable. CT/Abdomen/Pelvis W IV Cont ONLY IMPRESSION: No acute abnormality is seen. One or more dose reduction techniques were used (e.g., Automated exposure contr ol, adjustment of the mA and/or kV according to patient size, use of iterative reconstruction technique). Reading Location: [id number]
--- NOTE | 2024-08-27 08:45 | EDS_ITS ---
HPI HPI - GI History of Present Illness Chief Complaint: Nausea/Vomiting/Diarrhea Informant: patient and family Narrative Narrative: Patient has been sick since yesterday with nonbloody nonmelanotic nonbilious vomiting and diarrhea. The diarrhea is liquid. She is vomiting every 2 hours or so. She states she had some abdominal pain off and on but she has not been having much of that. She states the issue has been her back. It started at the same time as the first episode of vomiting, relatively suddenly and has been persistent, bilateral mid-low back, does not hurt worse to move, and does not move or radiate into the flank or down the leg and no numbness or weakness. No bowel or bladder dysfunction. She is urinating and trying to drink fluids but not eating. Her son was sick with vomiting recently but it only lasted a day or so. She has had a but no other abdominal surgeries. She states has never had back pain like this and this is her main concern. [facility] Medical History Bunion of unspecified foot Home Medications ?Medication ?Instructions ?Recorded ?Last Taken ?Type cefdinir 300 mg capsule 300 mg PO Q12 5 days #9 caps 02/20/23 Unknown Rx dicyclomine 20 mg tablet 20 mg PO Q6H PRN PRN abdomin al 08/27/24 Unknown Rx discomfort #12 tabs ondansetron 8 mg disintegrating 8 mg PO Q8H PRN nausea and 08/27/24 Unknown Rx tablet vomiting #12 tabs Allergy/AdvReac Type Severity Reaction Status Date / Time No Known Allergies Allergy Verified 08/27/24 08:20 Family History no significant family his Surgical History History of facial surgery Status post section Social History Smoking Status: Never smoker ROS ROS ED Constitutional Constitutional ED: Reports chills, fever(s) and subjective Eyes Eyes: Denies change in vision or diplopia ENT ENT ED: Denies rhinorrhea or sore throat Cardiovascular Cardiovascular: Denies chest pain or palpitations Respiratory/Chest Respiratory/Chest: Denies cough or dyspnea Gastrointestinal Gastrointestinal: Reports abdominal pain, diarrhea, nausea and vomiting; Denies hematemesis, hematochezia or melena Genitourinary Genitourinary ED: Denies dysuria or hematuria Musculoskeletal Musculoskeletal: Reports back pain; Denies neck pain Integumentary Denies abscess or rash Neurologic Neurologic: Denies headache(s), paresthesias or weakness Psychiatric Psychiatric: Denies anxiety or suicidal thoughts EXAM Physical Exam Const Vital Signs: 08/27/24 08:21 08/27/24 10:20 Temperature 98.7 F Temperature Source Oral Pulse Rate 117 H 72 Respiratory Rate 18 16 Blood Pressure 132/77 H 112/65 Blood Pressure Mean 95 80 Pulse Ox 100 99 Oxygen Delivery Method Room Air Positive well nourished and well developed General Appearance ED: well developed and NAD HEENT Reports moist mucous membranes normocephalic and atraumatic Eyes PERRL and EOMs intact bilaterally Neck full ROM and supple Resp normal respiratory effort and clear to auscultation bilaterally Cardio regular rate, regular rhythm and no murmurs Rate: tachycardic GI non-tender and non-distended Auscultation: hypoactive bowel sounds Palpation: soft; Negative for mass or pulsatile mass Back/Spine no CVA tenderness Back/Spine Narrative: Normal inspection no rashes. No paraspinal or midline tenderness. Not able to reproduce her pain which is high lumbar/lower thoracic bilateral. General Back: other FROM Extremity normal to inspection General Extremety ED: Negative for edema, pulses abnormal or tenderness General Extremity: Negative for edema or pulses abnormal Neuro oriented x3, CN's II-XII intact bilaterally and no sensory deficits noted Sensorium / Orientation: awake and alert Motor Exam: strength 5/5 throughout Psych mental status grossly normal and thought process normal Skin no rashes or lesions noted and no wounds MDM MDM MDM Narrative Medical decision making narrative: I suspect the cause of her back pain is either viral musculoskeletal-related pain due to the high prevalence of viral gastroenteritis in the area right now, or colitis from same that is radiating pain into the area she is having it acr oss her back. Also in the differential retroperitoneal processes such as aortic rupture which is very unlikely in this 33-year-old with normal blood pressure, other colonic process such as diverticulitis that would require different treatment such as antibiotics, and certainly her gastroenteritis could be caused by a bacterial cause which is thought to be less likely since she has no risk factors such as travel out of the area recently, recent antibiotics, or known ingestion of undercooked meats. Also considered possibility of causes unrelated to her vomiting and diarrhea such as pancreatitis, ectopic . Liver enzymes, lipase, all negative/normal essentially ruling that out. Did do a CT to evaluate her retroperitoneum while giving her IV fluids, Zofran, and Toradol for her symptoms. Zofran helped her nausea, and she was able to tolerate oral fluids. I reviewed the CT images which appear normal in my interpretation and I reviewed the radiology report which I agree with, it essentially negative for any acute. After the IV fluids her vital signs of normalized. Given all of this it certainly could just be the pain associated with viral syndrome, could still be colonic spasms even in absence of acute colitis or diverticulitis which and CT does not show, I offered her more pain medication she declines anything that is narcotic, but she excepted an offer for some dicyclomine to see if that helps. At this time supportive care advised for what is likely viral in etiology. Given prescriptions for Zofran and dicyclomine and advised to follow-up or return if symptoms do not improve within 3 to 5 days. Lab Data Attestation: I reviewed the patient's lab results. Labs: Laboratory Results - last 24 hr 08/27/24 08:55 WBC 8.0 RBC 4.80 Hgb 14.4 Hct 43.2 MCV 90.0 MCH 30.0 MCHC 33.3 RDW Std Deviation 38.7 RDW Coeff of Em 11.9 Plt Count 172 MPV 10.6 Immature Gran % (Auto) 0.600 Neut % (Auto) 91.0 H Lymph % (Auto) 4.3 L [place]elope % (Auto) 4.0 Eos % (Auto) 0.0 Baso % (Auto) 0.1 Absolute Neuts (auto) 7.2 Absolute Lymphs (auto) 0.34 L Nucleated RBC % 0 Sodium 137 Potassium 3.5 Chloride 103 Carbon Dioxide 26.0 Anion Gap 8 BUN 16 Creatinine 0.85 Est GFR (MDRD) Af Amer 100 Est GFR (MDRD) Non-Af 83 BUN/Creatinine Ratio 18.9 Glucose 110 H Calcium 9.3 Total Bilirubin 0.80 AST 13 L ALT 18 Alkaline Phosphatase 45 Total Protein 8.0 Albumin 4.1 Globulin 3.9 Albumin/Globulin Ratio 1.1 Lipase 14 L Serum , Qual NEGATIVE Radiography Diagnostic Testing: Clinical Impression(s) from Imaging Studies Abdomen/Pelvis CT 08/27/24 08:44 IMPRESSION: No acute abnormality is seen. One or more dose reduction techniques were used (e.g., Automated exposure control, adjustment of the mA and/or kV according to patient size, use of iterative reconstruction technique). Reading Location: [facility] Rhythm Strip Rhythm Strip: Sinus Tach Rate: 115 Ectopy: None Discharge Plan Triage Chief Complaint: Nausea/Vomiting/Diarrhea ED Provider: Mihai Warner Dx/Rx/DC Orders Clinical Impression: Viral gastroenteritis, Acute bilateral low back pain Instructions: Viral Gastroenteritis Prescriptions: New ondansetron 8 mg tablet,disintegrating 8 mg PO Q8H PRN (Reason: nausea and vomiting) Qty: 12 0RF dicyclomine 20 mg tablet 20 mg PO Q6H PRN PRN (Reason: abdominal discomfort) Qty: 12 0RF No Action cefdinir 300 mg Capsule 300 mg PO Q12 5 Days Qty: 9 0RF Primary Care Provider: Zoltan Rodriguez Referrals: Zoltan Rodriguez, DO [Primary Care Provider] - 3-5 Days if not improving Activity Restrictions/Additional Instructions: If not having abdominal discomfort you may use the dicyclomine as needed for your back discomfort; if it is related to your colon, then the medication will help. If it does not help you do not need to continue using it. You may also do Tylenol, ibuprofen in addition to these medications as needed for pain. Print Language: Irish Disposition Disposition: Home, Self Care
[2024-08-27] MEDS: Ketorolac 30 MG/ML Syringe IV (08:55)
[2024-08-27] MEDS: Ondansetron 4 MG/2 ML Vial IV (08:55)
[2024-08-27] MEDS: 0.9% Normal Saline (1000mL) 1,000 ML 999 ML IV (08:56)
[2024-08-27 09:28] LABS: Absolute Lymphocyte Count 0.34 X10^3/uL (0.83-4.51); Absolute Neutrophil Count 7.2 X10^3/uL (2.0-7.7); Basophil# 0.01 X10^3/uL; Basophil% 0.1 % (0-1); Hematocrit 43.2 % (37-47); Hemoglobin 14.4 g/dL (12.0-15.0); Lymphocyte # 0.34 X10^3/ul (0.83-4.51); Lymphocyte % 4.3 % (19-41); Mean Corp Hgb Conc 33.3 g/dL (32-36); Mean Platelet Vol. 10.6 fl (6.2-12.0); Monocyte# 0.32 X10^3/uL; NRBC Flagged by Analyzer 0 % (0-5); Neutrophil # 7.23 X10^3/uL (2.7-7.7); POSITIVE DIFFERENTIAL YES; Platelet Count 172 K/mm3 (150-450); RBC Distribution Width CV 11.9 % (11.6-14.6); RBC Distribution Width SD 38.7 fl (35.1-43.9)
[2024-08-27 09:32] LABS: Internal QC Validated? YES +Cl - CLEAR BKGD; Pregnancy, Serum, hCG Quali. NEGATIVE Negative
[2024-08-27 09:35] LABS: ALB/GLOB Ratio 1.1 RATIO (0.9-2.4); AST(SGOT) 13 U/L (15-37); Alanine Aminotransfer ALT/SGPT 18 U/L (13-56); Albumin, Serum 4.1 g/dL (3.2-5.0); Alkaline Phosphatase 45 U/L (45-117); Anion Gap 8 (5-15); BUN 16 mg/dL (7-18); BUN/Creat Ratio 18.9 RATIO (10-20); Calcium,Total 9.3 mg/dL (8.5-10.1); Chloride 103 mmol/L (98-107); Creatinine, Serum 0.85 mg/dL (0.55-1.02); EST Glomerular Filtration Rate 83 mL/min (>60); Est Glom Filt Rate - Afr Amer 100 mL/min (>60); Globulin 3.9 g/dL (2.2-4.2); Glucose 110 mg/dL (74-106); Lipase 14 U/L (73-393); Potassium 3.5 mmol/L (3.5-5.1); Sodium Level 137 mmol/L (136-145)
[2024-08-27 10:20] VITALS: BP 112/65; PULSE 72; RESP 16; O2SAT 99
[2024-08-27] MEDS: Dicyclomine 10 MG Capsule 20 MG PO (10:35)
[2024-08-27 11:17] VITALS: BP 109/60; PULSE 76; RESP 14; TEMP 37.1; O2SAT 100
[2024-08-27 11:19] VITALS: BMI 29.5
== END 2024-08-27 11:24 | disposition home or self-care (01) ==
PROVIDERS: Emergency Provider Emergency Medicine; PCP Family Medicine; Visit Provider Emergency Medicine
DX: A08.4 Viral intestinal infection, unspecified (principal); M54.50 Low back pain, unspecified
CPT/HCPCS: 74177; 80053; 83690; 84703; 85025; 96361; 96374; 96375; 99283; Q9967; A4216; J2405

== ENCOUNTER → 2024-12-12 | Outpatient (CLI) | payer OTHER, SELFPAY ==
[2024-12-12 15:50] LABS: Absolute Lymphocyte Count 1.63 X10^3/uL (0.83-4.51); Basophil# 0.02 X10^3/uL; Basophil% 0.3 % (0-1); Eosinophil# 0.03 X10^3/uL; Eosinophils% 0.5 % (0-5); Hematocrit 43.5 % (37-47); Hemoglobin 14.4 g/dL (12.0-15.0); Lymphocyte # 1.63 X10^3/ul (0.83-4.51); Lymphocyte % 27.3 % (19-41); Mean Corp Hgb Conc 33.1 g/dL (32-36); Mean Corpuscular Volume 90.6 fL (81-99); Mean Platelet Vol. 10.9 fl (6.2-12.0); Monocyte# 0.23 X10^3/uL; Monocyte% 3.9 % (0-10); NRBC Flagged by Analyzer 0 % (0-5); Neutrophil # 4.03 X10^3/uL (2.7-7.7); Neutrophil % 67.7 % (47-70); Platelet Count 252 K/mm3 (150-450); RBC Distribution Width CV 11.5 % (11.6-14.6); RBC Distribution Width SD 38.2 fl (35.1-43.9)
[2024-12-12 16:08] LABS: ALB/GLOB Ratio 1.5 RATIO (0.9-2.4); AST(SGOT) 16 U/L (<=31); Alanine Aminotransfer ALT/SGPT 10 U/L (<=34); Albumin, Serum 4.9 g/dL (3.5-5.0); Alkaline Phosphatase 55 U/L (35-104); Anion Gap 15 (5-15); BUN 13 mg/dL (4-19); BUN/Creat Ratio 15.9 RATIO (10-20); Calcium,Total 9.9 mg/dL (7.6-11.0); Carbon Dioxide 23.1 mmol/L (21.0-32.0); Chloride 104 mmol/L (98-108); Creatinine, Serum 0.79 mg/dL (0.70-1.20); EST Glomerular Filtration Rate 103 (>60); Globulin 3.2 g/dL (2.2-4.2); Glucose 91 mg/dL (70-99); Potassium 3.3 mmol/L (3.3-5.1); Protein, Total 8.1 g/dL (5.9-8.4); Sodium Level 141 mmol/L (133-145); Total Bilirubin 0.52 mg/dL (0.00-1.30)
[2024-12-12 16:09] LABS: CRP < 3.00 mg/L (0.0-3.0); Lipase 17 U/L (13-75)
== END | disposition home or self-care (01) ==
LOC: MTLAB 10:59
PROVIDERS: PCP Family Medicine; Referring Provider Family Medicine; Visit Provider Family Medicine
DX: R19.7 Diarrhea, unspecified (principal); R10.9 Unspecified abdominal pain
CPT/HCPCS: 36415; 80053; 83690; 85025; 86140

== ENCOUNTER → 2024-12-13 | Outpatient (CLI) | payer OTHER, SELFPAY ==
--- OUTSIDE RECORDS SUMMARY | 2024-12-13 09:19 | XMS RPT_ITS | CCD ---
Author Organization [facility] Care Team Providers Care Instructional Assistant Name Role Phone Alana Rodriguez DO Primary Care Provider Dr. Manolo Tolbert Emergency Provider Care Physician, No Primary Primary Care Provider Unavailable Dr. Enoch Casey Admit Provider Dr. Enoch Casey Attending Provider Dr. Enoch Casey Other Provider Dr. Ronal Trent Attending Provider Dr. Ronal Trent Other Provider Alana Rodriguez DO Primary Care Provider ALANA RODRIGUEZ Primary Care Unavailable Mihai Warner Attending Unavailable Alana Rodriguez Primary Care Unavailable Allergies Allergy Classification Reported Allergen(s) Allergy Type Date of Onset Reaction(s) Facility (1 source) environmenta [Other] Propensity to adverse reactions 0 [facility] (5 sources) Seasonal allergy; Translations: [SEASONAL ALLERGIES] Allergy to substance 0 Intolerance [facility] Medications Current Medications Medication Drug Class(es) Dates Sig (Normalized) Sig (Original) [id number] 200 actuat albuterol 0.09 mg/actuat metered dose inhaler (5 sources) beta2-Adrenergic Agonist Start: 07-26-2021 take 2 puff(s) by inhalation every four hours as needed for wheezing albuterol HFA (PROVENTIL HFA, VENTOLIN HFA) 90 mcg/actuation inhaler Indications: Cough Inhale 2 Puffs as instructed every 4 hours as needed for wheezing/shortness of breath. 1 Each 1 07/26/2021 Active Comment on above: Inhale 2 Puffs as in structed every 4 hours as needed for wheezing/shortness of breath. amoxicillin 875 mg / clavulanate 125 mg oral tablet (2 sources) Penicillin-class Antibacterial Start: 01-19-2023 End: 01-24-2023 take 1 tablet by mouth twice daily amoxicillin-clavulan ic acid (AUGMENTIN) 875-125 mg per tablet Indications: Rhinosinusitis Take 1 tablet by mouth twice daily for 5 days. 10 tablet 0 01/19/2023 01/24/2023 Active Start: 07-09-2022 End: 07-14-2022 take 1 tablet by mouth twice daily amoxicillin-clavulanic acid (AUGMENTIN) 875-125 mg per tablet Take 1 tablet by mouth twice daily for 5 days. 10 tablet 0 07/09/2022 07/14/2022 Active Comment on above: Take 1 tablet by nora th twice daily for 5 days. benzonatate 100 mg oral capsule (5 sources) Non-narcotic Antitussive Start: 2 take 100-200 mg by mouth every eight hours as needed for cough and cough benzonatate (TESSALON PERLES) 100 mg capsule Indications: Cough Take 1-2 capsules by mouth three times daily as needed. 30 capsule 07/26/2021 Active Comment on above: Take 1-2 capsules by mouth three times daily as needed. cefdinir 300 mg oral capsule (1 source) Cephalosporin Antibacterial Start: 3 take 300 mg by mouth every twelve hours Cefdinir Active 300 MG PO EVERY 12 HOURS 9 February 20, 2023 12:00am Completed/Discontinued Medications Medication Drug Class(es) Dates Sig (Normalized) Sig (Original) acetaminophen 325 mg / oxyCODONE hydrochloride 5 mg oral tablet (2 sources) Opioid Agonist Start: 01-25-2019 End: 02-04-2019 take 1 tablet by mouth every four hours as needed Oxycodone-Acetami nophen Discontinued 1 TABLET PO EVERY 4 HOURS NEEDED 27 01January 25, 2019 February 04, 2019 12:09am dicyclomine hydrochloride 10 mg oral capsule (2 sources) Anticholinergic Start: 08-12-2018 End: 02-16-2023 take 20 mg by mouth three times daily before mealtime Dicyclomine Discontinued 20 MG PO THREE TIMES DAILY BEFORE MEALS August 12, 2018 1:00am February 16, 2023 10:57pm docusate sodium 50 mg / sennosides, skilled nursing 8.6 mg oral tablet (2 sources) Start: 01-25-2019 End: 02-16-2023 take 1 tablet by mouth once daily Sennosides-Docusa te Sodium Discontinued 1 TABLET PO DAILY January 25, 2019 12:00am February 16, 2023 10:57pm ibuprofen 600 mg oral tablet (2 sources) Nonsteroidal Anti-inflammatory Drug Start: 01-25-2019 End: 02-20-2023 take 600 mg by mouth every six hours as needed Ibuprofen Discontinued 600 MG PO EVERY 6 HOURS NEEDED January 25, 2019 12:00am February 20, 2023 9:54am Vit,Shqy77-Vsfh-Nao ic (Prenatabs Fa) 1 TABLET tablet (2 sources) Start: 04-23-2016 End: 02-16-2023 take 1 tablet by mouth once daily Vit,Weqe11-Wlhw-R olic (Prenatabs Fa) 1 TABLET tablet Discontinued 1 TABLET PO DAILY April 23, 2016 12:00am February 16, 2023 10:57pm simethicone 80 mg chewable tablet (2 sources) Start: 01-25-2019 End: 02-16-2023 take 80 mg by mouth at bedtime Simethicone Discontinued 80 MG PO AFTER MEALS AND AT BEDTIME January 25, 2019 12:00am February 16, 2023 10:57pm Problems Active Problems Problem Classification Problem Date Documented Da te Episodic/Chronic Diseases of white blood cells (2 sources) Leukocytosis; Translations: [Elevated white blood cell count, unspecified] 02-18-2023 Chronic Nausea and vomiting (3 sources) Nausea and vomiting; Translations: [Nausea with vomiting, unspecified] Onset: 09-10-2024 02-18-2023 Episodic Other upper respiratory disease (5 sources) Allergic rhinitis; Translations: [Allergic rhinitis, unspecified] Onset: 10-20-2005 11-20-2009 Chronic Other upper respiratory disease (1 source) Chronic rhinitis; Translations: [Unspecified sinusitis (chronic)] 01-19-2023 Chronic Other upper respiratory infections (1 source) Bacterial sinusitis; Translations: [Chronic sinusitis, unspecified] Chronic Other upper respiratory infections (3 sources) Sore throat symptom; Translations: [Acute pharyngitis, unspecified] Episodic Otitis media and related conditions (1 source) Dysfunction of bilateral eustachian tubes; Translations: [Unspecified Eustachian tube disorder, bilateral] 07-12-2024 Episodic Residual codes; unclassified (2 sources) Other specified health status; Translations: [Failure of outpatient treatment] 02-18-2023 Episodic Skin and subcutaneous tissue infections (2 sources) Cellulitis of chest wall ; Translations: [Cellulitis of chest wall] 02-18-2023 Episodic Viral infection (1 source) Viral disease; Translations: [Viral infection, unspecified] 04-17-2023 Episodic Past or Other Problems Problem Classification Problem Date Documented Da te Episodic/Chronic Allergic reactions (5 sources) Dermatographic urticaria; Translations: [Dermatographic urticaria] Onset: 10-20-2005 10-20-2005 Episodic Genitourinary symptoms and ill-defined conditions (1 source) Bacteriuria; Translations: [Bacteriuria] Onset: 11-03-2015 Resolved: 06-04-2016 06-04-2016 Episodic Hemorrhage during ; abruptio placenta; placenta previa (1 source) Threatened miscarriage; Translations: [Threatened ] Onset: 08-15-2014 Resolved: 06-04-2016 06-04-2016 Episodic Lymphadenitis (7 sources) Lymphadenopathy; Translations: [Generalized enlarged lymph nodes] Onset: 05-18-2010 05-18-2010 Episodic Malposition; malpresentation (1 source) Breech presentation with problem; Translations: [Maternal care for breech presentation, not applicable or unspecified] Onset: 03-26-2016 Resolved: 06-04-2016 06-04-2016 Episodic Other congenital anomalies (1 source) Congenital anomaly of skin; Translations: [Other specified congenital malformations of skin] Onset: 05-02-2007 Resolved: 11-20-2009 11-20-2009 Chronic Other and delivery including normal (1 source) Normal ; Translations: [Encounter for supervision of normal , unspecified, third trimester] Onset: 09-08-2015 Resolved: 06-04-2016 06-04-2016 Episodic Results Test Name Value Interpretation Reference Range Facility Abdomen/Pelvis W IV Cont ONL Yon 08-27-2024 Abdomen/Pelvis W IV Cont ONLY [facility] Services [address] [place], [place] [address] Abdomen/Pelvis W IV Cont ONLY MR#: [id number] Acct: [id number] Name: JAGRUTI GORE Rep #: [id number] : 1990 F 33 From: Bartolo holloway MD PCP: Dr. Alana Rodriguez DO Status: REG ER Study: Abdomen/Pelvis W IV Cont ONLY Date of Exam: Exam# [id number] Ordering Dr: Mihai Warner MD PROCEDURE: ABDOMEN/PELVIS W IV CONT ONLY REASON FOR EXAM: 2 day history of nausea and vomiting. TECHNIQUE: Abdomen and pelvis CT with intravenous contrast. IV CONTRAST: 100 cc of Isovue-300. COMPARISON: None. FINDINGS: Lung bases: Clear Liver: Unremarkable. Gallbladder: Unremarkable. Spleen: Unremarkable. Pancreas: Unremarkable. Adrenals: Unremarkable. Kidneys: Unremarkable. Bladder: Unremarkable. Reproductive Organs: Endometrial thickening. This may be related to the patient's menstrual cycle. Follicles are seen in both ovaries. Bowel: Colonic diverticulosis without diverticulitis. Appendix: Normal. Lymph nodes: No suspicious lymph node enlargement. Vasculature: Major vascular structures are unremarkable. Peritoneum / Retroperitoneum: No ascites. No free air. Bones: Unremarkable. CT/Abdomen/Pelvis W IV Cont ONLY IMPRESSION: No acute abnormality is seen. One or more dose reduction techniques were used (e.g., Automated exposure control, adjustment of the mA and/or kV according to patient size, use of iterative reconstruction technique). Reading Location: [id number] CC: Dr. Mihai Warner MD; Dr. Alana Rodriguez DO [employer]: Signed Normal [facility] CBC W/Diff, Automatedon 08-11 Absolute Lymph 0.34 X10 3/uL Low 0.83-4.51 [facility] Comment on above: Performed By: #### L 501.2450, L100.0100, L500.4050 #### [facility] [address] [place], [address] Absolute Neut 7.2 X10 3/uL Normal 2.0-7.7 [facility] Comment on above: Performed By: #### L 501.2450, L100.0100, [id number] #### [facility] [address] [place], [address] Basophils/100 WBC (Bld) 0.1 % Normal 0-1 [facility] Comment on above: Performed By: #### L 501.2450, L100.0100, [id number] #### [facility] [address] [place], [address] Eosinophils/100 WBC (Bld) 0.0 % Normal 0-5 [facility] Comment on above: Performed By: #### L 501.2450, L100.0100, [id number] #### [facility] [address] [place], [address] Erythrocyte distribution width (RBC) [Ratio] 11.9 % Normal 11.6-14.6 [facility] Comment on above: Performed By: #### L 501.2450, L100.0100, L500.4050 #### [facility] [address] [place], [address] Hematocrit (Bld) [Volume fraction] 43.2 % Normal 37-47 [facility] Comment on above: Performed By: #### L 501.2450, L100.0100, L500.4050 #### [facility] [address] [place], [address] Hemoglobin (Bld) [Mass/Vol] 14.4 g/dL Normal 12.0-15.0 [facility] Comment on above: Performed By: #### L 501.2450, L100.0100, L500.4050 #### [facility] [address] [place], [address] IG% 0.600 Normal 0.0-0.9 [facility] Comment on above: Result Comment: IG% - Immature Granulocytes (promyelocytes, myelocytes and metamyelocytes) > 1% indicates that a LEFT SHIFT is Present. Performed By: #### L 501.2450, L100.0100, L500.4050 #### [facility] [address] [place], [address] Lymphocytes/100 WBC (Bld) 4.3 % Low 19-41 [facility] Comment on above: Performed By: #### L 501.2450, L100.0100, L500.4050 #### [facility] [address] [place], [address] MCH (RBC) [Entitic mass] 30.0 pg Normal 27.0-32.0 [facility] Comment on above: Performed By: #### L 501.2450, L100.0100, L500.4050 #### [facility] [address] [place], [address] MCHC (RBC) [Mass/Vol] 33.3 g/dL Normal 32-36 [facility] Comment on above: Performed By: #### L 501.2450, L100.0100, L500.4050 #### [facility] [address] [place], [address] MCV (RBC) [Entitic vol] 90.0 fL Normal 81-99 [facility] Comment on above: Performed By: #### L 501.2450, L100.0100, L500.4050 #### [facility] [address] [place], [address] Monocytes/100 WBC (Bld) 4.0 % Normal 0-10 [facility] Comment on above: Performed By: #### L 501.2450, L100.0100, L500.4050 #### [facility] [address] [place], [address] Neutrophils/100 WBC (Bld) 91.0 % High 47-70 [facility] Comment on above: Performed By: #### L 501.2450, L100.0100, L500.4050 #### [facility] [address] [place], [address] Nucleated RBC (Bld) [#/Vol] 0 10*3/uL Normal 0-5 [facility] Comment on above: Performed By: #### L 501.2450, L100.0100, L500.4050 #### [facility] [address] [place], [address] Platelet mean volume (Bld) [Entitic vol] 10.6 fL Normal 6.2-12.0 [facility] Comment on above: Performed By: #### L 501.2450, L100.0100, L500.4050 #### [facility] [address] [place], [address] Platelets (Bld) [#/Vol] 172 10*3/uL Normal 150-450 [facility] Comment on above: Performed By: #### L 501.2450, L100.0100, L500.4050 #### [facility] [address] [place], [address] RBC (Bld) [#/Vol] 4.80 10*6/uL Normal 4.2-5.[address] [facility] Comment on above: Performed By: #### L 501.2450, L100.0100, L500.4050 #### [facility] [address] [place], [address] RDW SD 38.7 fl Normal 35.1-43.9 [facility] Comment on above: Performed By: #### L 501.2450, L100.0100, L500.4050 #### [facility] [address] [place], [address] WBC (Bld) [#/Vol] 8.0 10*3/uL Normal 4.4-11.0 [facility] Comment on above: Performed By: #### L 501.2450, L100.0100, L500.4050 #### [facility] [address] [place], [address] Comprehensive Metabolic Prof ilon 08-27-2024 Albumin [Mass/Vol] 4.1 g/dL Normal 3.2-5.0 [facility] Comment on above: Performed By: #### L 501.2450, L100.0100, L500.4050 #### [facility] [address] [place], [address] Albumin/Globulin [Mass ratio] 1.1 {ratio} Normal 0.9-2.4 [facility] Comment on above: Performed By: #### L 501.2450, L100.0100, L500.4050 #### [facility] [address] [place], [address] ALK P 45 U/L Normal 45-117 [facility] Comment on above: Performed By: #### L 501.2450, L100.0100, L500.4050 #### [facility] [address] [place], [address] ALT [Catalytic activity/Vol] 18 U/L Normal 13-56 [facility] Comment on above: Performed By: #### L 501.2450, L100.0100, L500.4050 #### [facility] [address] [place], [address] AST [Catalytic activity/Vol] 13 U/L Low 15-37 [facility] Comment on above: Performed By: #### L 501.2450, L100.0100, L500.4050 #### [facility] [address] [place], [address] Bilirubin [Mass/Vol] 0.80 mg/dL Normal 0.20-1.00 [facility] Comment on above: Result Comment: For patients on eltrombopag therapy, use of Dimension [place] TBIL is not recommended. Performed By: #### L 501.2450, L100.0100, L500.4050 #### [facility] [address] [place], [address] BUN/CRE 18.9 RATIO Normal 10-20 [facility] Comment on above: Performed By: #### L 501.2450, L100.0100, L500.4050 #### [facility] [address] [place], [address] CA,Total 9.3 mg/dL Normal 8.5-10.1 [facility] Comment on above: Performed By: #### L 501.2450, L100.0100, L500.4050 #### [facility] [address] [place], [address] Chloride [Moles/Vol] 103 mmol/L Normal 98-107 [facility] Comment on above: Performed By: #### L 501.2450, L100.0100, L500.4050 #### [facility] [address] [place], [address] CO2 [Moles/Vol] 26.0 mmol/L Normal 21.0-32.0 [facility] Comment on above: Performed By: #### L 501.2450, L100.0100, L500.4050 #### [facility] [address] [place], [address] Creatinine [Mass/Vol] 0.85 mg/dL Normal 0.55-1.02 [facility] Comment on above: Result Comment: The validity of the calculated GFR GFRAA in patients over 70 years has not been determined. Clinical correlation is essential. Performed By: #### L 501.2450, L100.0100, L500.4050 #### [facility] [address] [place], [address] EST GFR - AA 100 mL/min Normal >60 [facility] Comment on above: Result Comment: Afri can [place] GFR Calc Performed By: #### L 501.2450, L100.0100, L500.4050 #### [facility] [address] [place], [address] GAP 8 Normal 5-15 [facility] Comment on above: Performed By: #### L 501.2450, L100.0100, L500.4050 #### [facility] [address] [place], [address] GFR/1.73 sq M.predicted among non-blacks MDRD (S/P/Bld) [Vol rate/Area] 83 mL/min/{1.73_m2} Normal >60 [facility] Comment on above: Result Comment: Non- GFR Calc Performed By: #### L 501.2450, L100.0100, L500.4050 #### [facility] [address] [place], [address] Globulin (S) [Mass/Vol] 3.9 g/dL Normal 2.2-4.2 [facility] Comment on above: Performed By: #### L 501.2450, L100.0100, L500.4050 #### [facility] [address] [place], [address] Glucose [Mass/Vol] 110 mg/dL High 74-106 [facility] Comment on above: Result Comment: Fast ing Glucose result from 100 to 125 mg/dL suggests IMPAIRED HOMEOSTASIS per A.D.A. criteria. Performed By: #### L 501.2450, L100.0100, L500.4050 #### [facility] [address] [place], [address] Potassium [Moles/Vol] 3.5 mmol/L Normal 3.5-5.1 [facility] Comment on above: Performed By: #### L 501.2450, L100.0100, L500.4050 #### [facility] [address] [place], [address] Sodium [Moles/Vol] 137 mmol/L Normal 136-145 [facility] Comment on above: Performed By: #### L 501.2450, L100.0100, L500.4050 #### [facility] [address] [place], [address] T PROT 8.0 g/dL Normal 6.4-8.2 [facility] Comment on above: Performed By: #### L 501.2450, L100.0100, L500.4050 #### [facility] [address] [place], [address] Urea nitrogen [Mass/Vol] 16 mg/dL Normal 7-18 [facility] Comment on above: Performed By: #### L 501.2450, L100.0100, L500.4050 #### [facility] [address] [place], [address] Emergency Department Summary on 08-27-2024 Emergency Department Summary [facility] Medical Records Department [address] [place] [address] Emergency Department Summary 08/27/24 MR#: [id number] Acct: [id number] Name: JAGRUTI GORE POONAM Rep #: [id number] : 1990 33 From: Mihai Warner MD PCP: Dr. Alana Rodriguez, DO Status:REG ER Location: ED HPI HPI - GI History of Present Illness Chief Complaint: Nausea/Vomiting/Thais rrhea Informant: patient and family Narrative Narrative: Patient has been sick since yesterday with nonbloody nonmelanotic nonbilious vomiting and diarrhea. The diarrhea is liquid. She is vomiting every 2 hours or so. She states she had some abdominal pain off and on but she has not been having much of that. She states the issue has been her back. It started at the same time as the first episode of vomiting, relatively suddenly and has been persistent, bilateral mid-low back, does not hurt worse to move, and does not move or radiate into the flank or down the leg and no numbness or weakness. No bowel or bladder dysfunction. She is urinating and trying to drink fluids but not eating. Her son was sick with vomiting recently but it only lasted a day or so. She has had a but no other abdominal surgeries. She states has never had back pain like this and this is her main concern. [facility] Medical History Bunion of unspecified foot Home Medications ???Medication ???Instructions ???Recorded ???Last Taken ???Type cefdinir 300 mg capsule 300 mg PO Q12 5 days #9 caps 02/20 Unknown Rx dicyclomine 20 mg tablet 20 mg PO Q6H PRN PRN abdominal Unknown Rx discomfort #12 tabs ondansetron 8 mg disintegrating 8 mg PO Q8H PRN nausea and 5 Unknown Rx tablet vomiting #12 tabs Allergy/AdvReac Type Severity Reaction Status Date / Time No Known Allergies Allergy Verified 08/27/24 08:20 Family History no significant family his Surgical History History of facial surgery Status post section Social History Smoking Status: Never smoker ROS ROS ED Constitutional Constitutional ED: Reports chills, fever(s) and subjective Eyes Eyes: Denies change in vision or diplopia ENT ENT ED: Denies rhinorrhea or sore throat Cardiovascular Cardiovascular: Denies chest pain or palpitations Respiratory/Chest Respiratory/Chest: Denies cough or dyspnea Gastrointestinal Gastrointestinal: Reports abdominal pain, diarrhea, nausea and vomiting; Denies hematemesis, hematochezia or melena Genitourinary Genitourinary ED: Denies dysuria or hematuria Musculoskeletal Musculoskeletal: Reports back pain; Denies neck pain Integumentary Denies abscess or rash Neurologic Neurologic: Denies headache(s), paresthesias or weakness Psychiatric Psychiatric: Denies anxiety or suicidal thoughts EXAM Physical Exam Const Vital Signs: 08/27/24 08:21 08/27/24 10:20 Temperature 98.7 F Temperature Source Oral Pulse Rate 117 H 72 Respiratory Rate 18 16 Blood Pressure 132/77 H 112/65 Blood Pressure Mean 95 80 Pulse Ox 100 99 Oxygen Delivery Method Room Air Positive well nourished and well developed General Appearance ED: well developed and NAD HEENT Reports moist mucous membranes normocephalic and atraumatic Eyes PERRL and EOMs intact bilaterally Neck full ROM and supple Resp normal respiratory effort and clear to auscultation bilaterally Cardio regular rate, regular rhythm and no murmurs Rate: tachycardic GI non-tender and non-distended Auscultation: hypoactive bowel sounds Palpation: soft; Negative for mass or pulsatile mass Back/Spine no CVA tenderness Back/Spine Narrative: Normal inspection no rashes. No paraspinal or midline tenderness. Not able to reproduce her pain which is high lumbar/lower thoracic bilateral. General Back: other FROM Extremity normal to inspection General Extremety ED: Negative for edema, pulses abnormal or tenderness General Extremity: Negative for edema or pulses abnormal Neuro oriented x3, CN's II-XII intact bilaterally and no sensory deficits noted Sensorium / Orientation: awake and alert Motor Exam: strength 5/5 throughout Psych mental status grossly normal and thought process normal Skin no rashes or lesions noted and no wounds MDM MDM MDM Narrative Medical decision making narrative: I suspect the cause of her back pain is either viral musculoskeletal-rel ated pain due to the high prevalence of viral gastroenteritis in the area right now, or colitis from same that is radiating pain into the area she is having it across her back. Also in the differential retroperitoneal processes such as aortic rupture which is very u (more content not included)... Normal [facility] Lipaseon 08-27-2024 Lipase [Catalytic activity/Vol] 14 U/L Low 73-393 [facility] Comment on above: Performed By: #### L 501.8440, L100.0100, L500.4050 #### [facility] [address] [place], [address] ,Serum,hCG Quali.on 08-27-2024 HCG, SERUM QUAL Negative Normal [facility] Center Comment on above: Performed By: #### L [id number] #### [facility] [address] [place], [address] CNOVon 07-12-2024 CNOV Office Visit ([facility]) ---- JAGRUTI GORE ([id number]) 1990 F Date Time Provider Department 07/12/24 4:15 PM [facility]Y [facility] During your visit today, we recorded the following information about you: Temperature Pulse Respiration Blood pressure 98.4 degrees 80/minute 20/minute 110/76 Weight 80.3 kg Yony Burns, MARLEEN.KNIFE FINISHER 07/12/2024 4:51 PM Signed Subjective HPI Nontoxic-appearing female presents urgent care chief complaintNontoxic-a ppearing female presents urgent care chief plaint possible ear infection. Duration of symptom 1 day. Association of bilateral pressure pain. States did have URI symptoms last week. The symptoms have improved. Still has a bit of rhinorrhea. OTC medications none. No significant pain. Denies any ear trauma loss hearing or otorrhea. No fevers. Past medical history prescription medications allergies reviewed. .Patient presents with: Ear Problem: JACKELINE ear pain x 1 day PAST MEDICAL HISTORY Diagnosis Date Allergy, unspecified not elsewhere classified environmental Hyperhydrosis disorder Miscarriage 08/2014 PAST SURGICAL HISTORY Procedure Laterality Date DELIVERY ONLY 04/23/2016 , low transverse DELIVERY ONLY 01/23/2019 RC/S low transverse CORRECTION OF BUNION Right Right foot PAST SURGICAL HISTORY OF nose and upper lip surgery from a dog bite. REM LESION NEC,HND,SCAL 0.6-1.0CM 05/20/2007 Exc. right inferior areolar breast lesion ALLERGIES Seasonal Allergies MEDICATIONS albuterol HFA (PROVENTIL HFA, VENTOLIN HFA) 90 mcg/actuation inhaler Inhale 2 Puffs as instructed every 4 hours as needed for wheezing/shortness of breath. (Patient not taking: Reported on 07/09/2022) benzonatate (TESSALON PERLES) 100 mg capsule Take 1-2 capsules by mouth three times daily as needed. (Patient not taking: Reported on 07/09/2022) FAMILY HISTORY Problem Relation Age of Onset No Known Problems Mother Allergies Father other (Hepatitis C) Father other (Hep C) Brother Half-Brother No Known Problems Maternal Grandmother other (ALS) Maternal Grandfather Thyroid Paternal Grandmother other (Crohn's Disease) Paternal Grandmother No Known Problems Paternal Grandfather Diabetes Other maternal great grandparents and great aunts and uncles. Heart Other maternal great grandfathers. Breast Cancer Other Maternal Great Grandmother other (undescended testicle, stent in left eye for blocked tear duct) Son Social History Tobacco Use Smoking status: Never Smokeless tobacco: Never Vaping Use Vaping status: Never Used Substance Use Topics Alcohol use: No Drug use: No BP 110/76 Pulse 80 Temp 36.9 ?C (98.4 ?F) Resp 20 Wt 80.3 kg (177 lb 0.5 oz) LMP 03/29/2021 SpO2 98% BMI 31.36 kg/m? Review of Systems Constitutional: Negative for chills, fever and malaise/fatigue. HENT: Positive for congestion and ear pain. Negative for ear discharge, sinus pain and sore throat. Eyes: Negative for blurred vision, pain, discharge and redness. Respiratory: Negative for cough, hemoptysis, sputum production, shortness of breath, wheezing and stridor. Cardiovascular: Negative for chest pain. Gastrointestinal: Negative for abdominal pain, diarrhea, nausea and vomiting. Musculoskeletal: Negative for myalgias. Skin: Negative for itching and rash. Neurological: Negative for dizziness and headaches. Objective Physical Exam Constitutional: General: She is not in acute distress. Appearance: She is not diaphoretic. HENT: Head: Normocephalic. Jaw: No trismus, tenderness, swelling or pain on movement. Right Ear: Tympanic membrane, ear canal and external ear normal. Left Ear: Tympanic membrane, ear canal and external ear normal. Ears: Comments: Fluid behind bilateral TMs noted. No evidence of bacterial infection. Nose: Congestion present. Mouth/Throat: Mouth: Mucous membranes are moist. Pharynx: Oropharynx is clear. Uvula midline. No pharyngeal swelling, oropharyngeal exudate, posterior oropharyngeal erythema or uvula swelling. Eyes: Conjunctiva/sclera: Conjunctivae normal. Pupils: Pupils are equal, round, and reactive to light. Cardiovascular: Rate and Rhythm: Normal rate and regular rhythm. Heart sounds: Normal heart sounds. Pulmonary: Effort: Pulmonary effort is normal. No tachypnea, accessory muscle usage or respiratory distress. Breath sounds: Normal breath sounds. No stridor. No wheezing, rhonchi or rales. Abdominal: General: There is no distension. Palpations: Abdomen is soft. Tenderness: There is no abdominal tenderness. There is no guarding or rebound. Musculoskeletal: Cervical back: Normal range of motion and neck supple. No edema, erythema, rigidity or tenderness. No pain with movement. Normal range of motion. Lymphadenopathy: Cervical: No cervical adenopathy. Skin: Gener (more content not included)... Normal [facility] STREP A MOLECULAR (POC)on Procedural Control Valid [facility] Strep A (POCT) Negative Negative [facility] Absolute lymphocyte countOrd ered By: Enoch Jacinto on 02-19-2023 Lymphocytes Auto (Unsp spec) [#/Vol] 0.41 10*3/uL 0.83-4.51 [facility] Basophil percentageOrdered B y: Enoch Jacinto on 02-19-2023 Basophils/100 WBC (Bld) 0.1 % 0-1 [facility] Chloride [Moles/Vol] 110 mmol/L 98-107 [facility] Eosinophils/100 WBC (Bld) 2.6 % 0-5 [facility] Glucose [Mass/Vol] 92 mg/dL 74-106 [facility] Neutrophils (Bld) [#/Vol] 7.2 10*3/uL 2.0-7.7 [facility] Neutrophils/100 WBC (Bld) 86.2 % 47-70 [facility] Potassium [Moles/Vol] 3.2 mmol/L 3.5-5.1 [facility] Sodium [Moles/Vol] 141 mmol/L 136-145 [facility] WBC (Bld) [#/Vol] 8.4 10*3/uL 4.4-11.0 [facility] Blood erythrocytes count (nu mber/volume)Ordered By: Enoch Casey on 02-19-2023 RBC (Bld) [#/Vol] 3.60 10*6/uL 4.2-5.[address] [facility] Blood hemoglobin measurement (mass/volume)Ordered By: Enoch Casey on 02-19-2023 Hemoglobin (Bld) [Mass/Vol] 11.0 g/dL 12.0-15.0 [facility] Blood lymphocytes/100 leukoc ytesOrdered By: Enoch Casey on 02-19-2023 Lymphocytes/100 WBC (Bld) 4.9 % 19-41 [facility] Blood manual differential co mment interpretation (narrative result)Ordered By: Enoch Casey on 02-19-2023 Manual differential comment Mynor (Bld) [Interp] SCANNED [facility] Comment on above: LYMPHOPENIA PRESENTL EFT SHIFT PRESENT BANDS 2+ Blood monocytes/100 leukocyt esOrdered By: Enoch Casey on 02-19-2023 Monocytes/100 WBC (Bld) 5.4 % 0-10 [facility] Blood platelet mean volumeOr dered By: Enoch Casey on 02-19-2023 Platelet mean volume (Bld) [Entitic vol] 10.2 fL 6.2-12.0 [facility] Determination of erythrocyte mean corpuscular volume (MCV)Ordered By: Enoch Casey on 02-19-2023 MCV (RBC) [Entitic vol] 93.9 fL 81-99 [facility] Hematocrit Auto (Bld) [Volum e fraction]Ordered By: Enoch Casey on 02-19-2023 Hematocrit (Bld) [Volume fraction] 33.8 % 37-47 [facility] - Chemistry and C hemistry - challengeOrdered By: Enoch Casey on 02-19-2023 CO2 [Moles/Vol] 24.0 mmol/L 21.0-32.0 [facility] Urea nitrogen/Creatinine [Mass ratio] 10.3 mg/mg 10-20 [facility] - Chemistry and C hemistry - challengeOrdered By: Ronal Trent on 02-19-2023 Magnesium [Mass/Vol] 1.8 mg/dL 1.6-2.6 [facility] - Hematology and Cell countsOrdered By: Enoch Casey on 02-19-2023 Erythrocyte distribution width (RBC) [Entitic vol] 40.8 fL 35.1-43.9 [facility] Erythrocyte distribution width (RBC) [Ratio] 11.6 % 11.6-14.6 [facility] Immature granulocytes/100 WBC (Bld) 0.800 % 0.0-0.9 [facility] Comment on above: IG% - Immature Granu locytes (promyelocytes, myelocytes and metamyelocytes) > 1% indicates that a LEFT SHIFT is Present. MCH (RBC) [Entitic mass] 30.6 pg 27.0-32.0 [facility] Nucleated RBC/100 WBC (Bld) [Ratio] 0 % 0-5 [facility] MCHC Auto (RBC) [Mass/Vol]Or dered By: Enoch Casey on 02-19-2023 MCHC (RBC) [Mass/Vol] 32.5 g/dL 32-36 [facility] No Panel InformationOrdered By: Enoch Casey on 02-19-2023 Estimated Creatinine Clearance Calc 108.85 ml/min [facility] Estimated GFR (MDRD) Amer 131 mL/min >60 [facility] Comment on above: GFR Calc Estimated GFR (MDRD) Non-Af Amer 108 mL/min >60 [facility] Comment on above: Non- GFR Calc Platelets bldOrdered By: Boris Casey on 02-19-2023 Platelets (Bld) [#/Vol] 139 10*3/uL 150-450 [facility] Serum or plasma calcium naye urement (mass/volume)Ordered By: Enoch Casey on 02-19-2023 Calcium [Mass/Vol] 7.6 mg/dL 8.5-10.1 [facility] Serum or plasma creatinine m easurement (mass/volume)Ordered By: Enoch Casey on 02-19-2023 Creatinine [Mass/Vol] 0.68 mg/dL 0.55-1.02 [facility] Comment on above: The validity of the calculated GFR & GFRAA in patients over 70 years has not been determined. Clinical correlation is essential. Serum or plasma urea nitroge n measurement (mass/volume)Ordered By: Enoch Casey on 02-19-2023 Urea nitrogen [Mass/Vol] 7 mg/dL 7-18 [facility] Thin prep Papanicolaou smear with manual screeningOrdered By: Enoch Casey on 02-19-2023 Thin prep Papanicolaou smear with manual screening 7 5-15 [facility] Basophil percentageOrdered B y: Manolo Tolbert on 02-18-2023 Basophil percentage 25-50 SEEN /hpf 0-5 [facility] Lactate [Moles/Vol] 1.8 mmol/L 0.4-2.[address] [facility] Bilirubin [Mass/Vol] 0.90 mg/dL 0.20-1.00 [facility] Comment on above: For patients on eltr ombopag therapy, use of [employer] TBIL is not recommended. Protein [Mass/Vol] 8.3 g/dL 6.4-8.2 [facility] Beta hCG serum qualOrdered B y: Manolo Tolbert on 02-18-2023 Beta HCG ( test) Ql Negative [facility] Bilirubin Test strip Ql (U)O rdered By: Manolo Tolbert on 02-18-2023 Bilirubin Ql (U) 1 mg/dL Negative [facility] Comment on above: COLOR OF URINE MAY A FFECT DIPSTICK RESULTS. Culture, urineOrdered By: Christopher Bowser on 02-18-2023 Bacteria identified Cx Nom (U) Escherichia coli [facility] Influenza virus A and B and SARS-CoV-2 (COVID-19) Ag panel - Upper respiratory specimOrdered By: Manolo Tolbert on 02-18-2023 SARS-CoV-2 (COVID-19) RNA EDDY+probe Ql (Resp) [facility] Ketones Test strip Ql (U)Ord ered By: Manolo Tolbert on 02-18-2023 Ketones Ql (U) 150 mg/dl Negative [facility] Comment on above: CRITICAL VALUE *HCRI TICAL VALUE VERIFIED. CALLED TO KAREN LEDESMA (ER)02/18/23 1031 Rolando Kim.RESULTS READ BACK BY SAME. Laboratory - Chemistry and C hemistry - challengeOrdered By: Manolo Tolbert on 02-18-2023 ALP [Catalytic activity/Vol] 70 U/L 45-117 [facility] ALT [Catalytic activity/Vol] 30 U/L 13-56 [facility] Globulin (S) [Mass/Vol] 4.5 g/dL 2.2-4.2 [facility] Mucus LM Ql (Urine sed)Order ed By: Manolo Tolbert on 02-18-2023 Mucus Ql (Urine sed) 1+ /hpf [facility] Nitrite Test strip Ql (U)Ord ered By: Manolo Tolbert on 02-18-2023 Nitrite Ql (U) Negative Negative [facility] Protein Test strip Ql (U)Ord ered By: Manolo Tolbert on 02-18-2023 Protein Ql (U) 30 mg/dl Negative [facility] Serum or plasma albumin naye urement (mass/volume)Ordered By: Manolo Tolbert on 02-18-2023 Albumin [Mass/Vol] 3.8 g/dL 3.2-5.0 [facility] Serum or plasma albumin/glob ulin mass ratioOrdered By: Manolo Tolbert on 02-18-2023 Albumin/Globulin [Mass ratio] 0.8 {ratio} 0.9-2.4 [facility] Squamous epithelial cells de tection in urine sediment by light microscopyOrdered By: Manolo Tolbert on 02-18-2023 Epithelial cells.squamous LM Ql (Urine sed) 5-10 SEEN /hpf 5-10 [facility] Thin prep Papanicolaou smear with manual screeningOrdered By: Manolo Tolbert on 02-18-2023 Thin prep Papanicolaou smear with manual screening 23 U/L 15-37 [facility] Urine blood detectionOrdered By: Manolo Tolbert on 02-18-2023 RBC Ql (U) 10 /ul Negative [facility] RBC Ql (U) 0-5 SEEN /hpf 0-5 [facility] Urine clarityOrdered By: Bennett Tolbert on 02-18-2023 Clarity (U) Sl. Cloudy Clear [facility] Urine color determinationOrd ered By: Manolo Tolbert on 02-18-2023 Color (U) Yellow Yellow [facility] Urine glucose detectionOrder ed By: Manolo Tolbert on 02-18-2023 Glucose Ql (U) Normal mg/dl Normal [facility] Urine leukocyte esterase det ection by dipstickOrdered By: Manolo Tolbert on 02-18-2023 Leukocyte esterase Test strip Ql (U) 500 /ul Negative [facility] Urine pHOrdered By: Manolo guo on 02-18-2023 pH (U) 5.0 [pH] 5.0 - 8.0 [facility] Urine sediment bacteria coun t by microscopy (number/high power field)Ordered By: Manolo Tolbert on 02-18-2023 Bacteria LM.HPF (Urine sed) [#/Area] 1 /[HPF] None Seen [facility] Urine specific gravity measu rementOrdered By: Manolo Tolbert on 02-18-2023 Specific gravity (U) [Rel density] 1.020 1.002-1.030 [facility] Urobilinogen Auto test strip Ql (U)Ordered By: Manolo Tolbert on 02-18-2023 Urobilinogen Ql (U) 1 mg/dl Normal [facility] Absolute lymphocyte countOrd ered By: Lionel Barrios on 02-16-2023 Lymphocytes Auto (Unsp spec) [#/Vol] 0.46 10*3/uL 0.83-4.51 [facility] Basophil percentageOrdered B y: Lionel Barrios on 02-16-2023 Basophils/100 WBC (Bld) 0.2 % 0-1 [facility] Bilirubin [Mass/Vol] 0.30 mg/dL 0.20-1.00 [facility] Comment on above: For patients on eltr ombopag therapy, use of [place] TBIL is not recommended. Chloride [Moles/Vol] 103 mmol/L 98-107 [facility] Eosinophils/100 WBC (Bld) 0.0 % 0-5 [facility] Glucose [Mass/Vol] 129 mg/dL 74-106 [facility] Comment on above: Fasting Glucose resu lt greater than or equal to 126 mg/dL suggests DIABETES MELLITUS per A.D.A. criteria. Neutrophils (Bld) [#/Vol] 10.3 10*3/uL 2.0-7.7 [facility] Neutrophils/100 WBC (Bld) 90.2 % 47-70 [facility] Potassium [Moles/Vol] 3.5 mmol/L 3.5-5.1 [facility] Protein [Mass/Vol] 7.9 g/dL 6.4-8.2 [facility] Sodium [Moles/Vol] 138 mmol/L 136-145 [facility] WBC (Bld) [#/Vol] 11.4 10*3/uL 4.4-11.[address] [facility] Basophil percentage 0-5 SEEN /hpf 0-5 [facility] Bilirubin Test strip Ql (U)O rdered By: Lionel Barrios on 02-16-2023 Bilirubin Ql (U) Negative Negative [facility] Blood erythrocytes count (nu mber/volume)Ordered By: Lionel Barrios on 02-16-2023 RBC (Bld) [#/Vol] 4.34 10*6/uL 4.2-5.[address] [facility] Blood hemoglobin measurement (mass/volume)Ordered By: Lionel Barrios on 02-16-2023 Hemoglobin (Bld) [Mass/Vol] 13.2 g/dL 12.0-15.0 [facility] Blood lymphocytes/100 leukoc ytesOrdered By: Lionel Barrios on 02-16-2023 Lymphocytes/100 WBC (Bld) 4.0 % 19-41 [facility] Blood monocytes/100 leukocyt esOrdered By: Lionel Barrios on 02-16-2023 Monocytes/100 WBC (Bld) 5.2 % 0-10 [facility] Blood platelet mean volumeOr dered By: Lionel Barrios on 02-16-2023 Platelet mean volume (Bld) [Entitic vol] 9.8 fL 6.2-12.0 [facility] Determination of erythrocyte mean corpuscular volume (MCV)Ordered By: Lionel Barrios on 02-16-2023 MCV (RBC) [Entitic vol] 91.5 fL 81-99 [facility] Hematocrit Auto (Bld) [Volum e fraction]Ordered By: Lionel Barrios on 02-16-2023 Hematocrit (Bld) [Volume fraction] 39.7 % 37-47 [facility] Influenza virus A and B and SARS-CoV-2 (COVID-19) Ag panel - Upper respiratory specimOrdered By: Lionel Barrios on 02-16-2023 SARS-CoV-2 (COVID-19) RNA EDDY+probe Ql (Resp) [facility] Ketones Test strip Ql (U)Ord ered By: Lionel Barrios on 02-16-2023 Ketones Ql (U) 15 mg/dl Negative [facility] - Chemistry and C hemistry - challengeOrdered By: Lionel Barrios on 02-16-2023 ALP [Catalytic activity/Vol] 59 U/L 45-117 [facility] ALT [Catalytic activity/Vol] 21 U/L 13-56 [facility] CO2 [Moles/Vol] 26.0 mmol/L 21.0-32.0 [facility] Globulin (S) [Mass/Vol] 3.7 g/dL 2.2-4.2 [facility] Urea nitrogen/Creatinine [Mass ratio] 11.7 mg/mg 10-20 [facility] - Hematology and Cell countsOrdered By: Lionel Barrios on 02-16-2023 Erythrocyte distribution width (RBC) [Entitic vol] 38.5 fL 35.1-43.9 [facility] Erythrocyte distribution width (RBC) [Ratio] 11.3 % 11.6-14.6 [facility] Immature granulocytes/100 WBC (Bld) 0.400 % 0.0-0.9 [facility] Comment on above: IG% - Immature Granu locytes (promyelocytes, myelocytes and metamyelocytes) > 1% indicates that a LEFT SHIFT is Present. MCH (RBC) [Entitic mass] 30.4 pg 27.0-32.0 [facility] Nucleated RBC/100 WBC (Bld) [Ratio] 0 % 0-5 [facility] MCHC Auto (RBC) [Mass/Vol]Or dered By: Lionel Barrios on 02-16-2023 MCHC (RBC) [Mass/Vol] 33.2 g/dL 32-36 [facility] Mucus LM Ql (Urine sed)Order ed By: Lionel Barrios on 02-16-2023 Mucus Ql (Urine sed) 0 SEEN /hpf [facility] Nitrite Test strip Ql (U)Ord ered By: Lionel Barrios on 02-16-2023 Nitrite Ql (U) Negative Negative [facility] No Panel InformationOrdered By: Lionel Barrios on 02-16-2023 Estimated Creatinine Clearance Calc 69.21 ml/min [facility] Estimated GFR (MDRD) Amer 90 mL/min >60 [facility] Comment on above: GFR Calc Estimated GFR (MDRD) Non-Af Amer 74 mL/min >60 [facility] Comment on above: Non- GFR Calc Platelets bldOrdered By: Jovan Barrios on 02-16-2023 Platelets (Bld) [#/Vol] 187 10*3/uL 150-450 [facility] Protein Test strip Ql (U)Ord ered By: Lionel Barrios on 02-16-2023 Protein Ql (U) Negative Negative [facility] Serum or plasma albumin naye urement (mass/volume)Ordered By: Lionel Barrios on 02-16-2023 Albumin [Mass/Vol] 4.2 g/dL 3.2-5.0 [facility] Serum or plasma albumin/glob ulin mass ratioOrdered By: Lionel Barrios on 02-16-2023 Albumin/Globulin [Mass ratio] 1.1 {ratio} 0.9-2.4 [facility] Serum or plasma calcium naye urement (mass/volume)Ordered By: Lionel Barrios on 02-16-2023 Calcium [Mass/Vol] 9.4 mg/dL 8.5-10.1 [facility] Serum or plasma creatinine m easurement (mass/volume)Ordered By: Lionel Barrios on 02-16-2023 Creatinine [Mass/Vol] 0.94 mg/dL 0.55-1.02 [facility] Comment on above: The validity of the calculated GFR & GFRAA in patients over 70 years has not been determined. Clinical correlation is essential. Serum or plasma urea nitroge n measurement (mass/volume)Ordered By: Lionel Barrios on 02-16-2023 Urea nitrogen [Mass/Vol] 11 mg/dL 7-18 [facility] Squamous epithelial cells de tection in urine sediment by light microscopyOrdered By: Lionel Barrios on 02-16-2023 Epithelial cells.squamous LM Ql (Urine sed) 5-10 SEEN /hpf 5-10 [facility] Thin prep Papanicolaou smear with manual screeningOrdered By: Lionel Barrios on 02-16-2023 Thin prep Papanicolaou smear with manual screening 11 U/L 15-37 [facility] Thin prep Papanicolaou smear with manual screening 9 5-15 [facility] Urine blood detectionOrdered By: Lionel Barrios on 02-16-2023 RBC Ql (U) Negative Negative [facility] RBC Ql (U) 0 SEEN /hpf 0-5 [facility] Urine clarityOrdered By: Jovan Barrios on 02-16-2023 Clarity (U) Clear Clear [facility] Urine color determinationOrd ered By: Lionel Barrios on 02-16-2023 Color (U) Yellow Yellow [facility] Urine glucose detectionOrder ed By: Lionel Barrios on 02-16-2023 Glucose Ql (U) Normal mg/dl Normal [facility] Urine leukocyte esterase det ection by dipstickOrdered By: Lionel Barrios on 02-16-2023 Leukocyte esterase Test strip Ql (U) 500 /ul Negative [facility] Urine pHOrdered By: Lionel aguilar on 02-16-2023 pH (U) 5.0 [pH] 5.0 - 8.0 [facility] Urine sediment bacteria coun t by microscopy (number/high power field)Ordered By: Lionel Barrios on 02-16-2023 Bacteria LM.HPF (Urine sed) [#/Area] 0 /[HPF] None Seen [facility] Urine specific gravity measu rementOrdered By: Lionel Barrios on 02-16-2023 Specific gravity (U) [Rel density] 1.020 1.002-1.030 [facility] Urobilinogen Auto test strip Ql (U)Ordered By: Lionel Barrios on 02-16-2023 Urobilinogen Ql (U) Normal mg/dl Normal [facility] STREP A MOLECULAR (POC)on Procedural Control Valid [facility] Strep A (POCT) Negative Negative [facility] STREP A MOLECULAR (POC)on Procedural Control Valid [facility] Strep A (POCT) Negative Negative [facility] Vital Signs Date Time Vital Sign Value Performing Clinician Facility 07-12-2024 16:28-0500 Body mass index (BMI) [Ratio] 31.36 kg[facility]m2 [facility] [employer]TENNA DESIGN ENGINEER.KNIFE FINISHER Work Phone: [facility] 07-12-2024 16:28-0500 Body temperature 98.4 [degF] [facility] ANTENNA DESIGN ENGINEER.KNIFE FINISHER Work Phone: [facility] 07-12-2024 16:28-0500 Body weight 80.3 kg [facility] ANTENNA DESIGN ENGINEER.KNIFE FINISHER Work Phone: [facility] 07-12-2024 16:28-0500 Diastolic blood pressure 76 mm[Hg] [facility] ANTENNA DESIGN ENGINEER.KNIFE FINISHER Work Phone: [facility] 07-12-2024 16:28-0500 Heart rate 80 /min [facility] ANTENNA DESIGN ENGINEER.KNIFE FINISHER Work Phone: [facility] 07-12-2024 16:28-0500 Respiratory rate 20 /min [facility] ANTENNA DESIGN ENGINEER.KNIFE FINISHER Work Phone: [facility] 07-12-2024 16:28-0500 SaO2% (BldA) [Mass fraction] 98 % [facility] ANTENNA DESIGN ENGINEER.KNIFE FINISHER Work Phone: [facility] 07-12-2024 16:28-0500 Systolic blood pressure 110 mm[Hg] [facility] ANTENNA DESIGN ENGINEER.KNIFE FINISHER Work Phone: [facility] 04-17-2023 08:30-0400 Body temperature 98.71 [degF] [facility] ANTENNA DESIGN ENGINEER.KNIFE FINISHER Work Phone: [facility] 04-17-2023 08:30-0400 Body weight 73.48 kg [facility] ANTENNA DESIGN ENGINEER.KNIFE FINISHER Work Phone: [facility] 04-17-2023 08:30-0400 Diastolic blood pressure 68 mm[Hg] [facility] ANTENNA DESIGN ENGINEER.KNIFE FINISHER Work Phone: [facility] 04-17-2023 08:30-0400 Heart rate 98 /min [facility] ANTENNA DESIGN ENGINEER.KNIFE FINISHER Work Phone: [facility] 04-17-2023 08:30-0400 Respiratory rate 16 /min Yony Brumfieldshahab ANTENNA DESIGN ENGINEER.KNIFE FINISHER Work Phone: [facility] 04-17-2023 08:30-0400 SaO2% (BldA) [Mass fraction] 99 % Yony Woodchely ANTENNA DESIGN ENGINEER.KNIFE FINISHER Work Phone: [facility] 04-17-2023 08:30-0400 Systolic blood pressure 110 mm[Hg] Yony Brumfieldshahab ANTENNA DESIGN ENGINEER.KNIFE FINISHER Work Phone: [facility] 02-20-2023 09:54-0400 Body temperature 98 [degF] Dr. Manolo Tolbert Work Phone: [facility] 02-20-2023 09:54-0400 Diastolic blood pressure 58 mm[Hg] Dr. Manolo Tolbert Work Phone: [phone] [place] [address] 02-20-2023 09:54-0400 Heart rate 95 /min Dr. Manolo Tolbert Work Phone: [facility] 02-20-2023 09:54-0400 Respiratory rate 16 /min Dr. Manolo Tolbert Work Phone: [facility] 02-20-2023 09:54-0400 SaO2% (BldA) [Mass fraction] 97 % Dr. Manolo Tolbert Work Phone: [facility] 02-20-2023 09:54-0400 Systolic blood pressure 109 mm[Hg] Dr. Manolo Tolbert Work Phone: [facility] 02-18-2023 16:27-0400 Body height 165.[address] Manolo Tolbert Work Phone: [facility] 02-18-2023 16:27-0400 Body mass index (BMI) [Ratio] 26.9 kg/m2 Dr. Manolo Tolbert Work Phone: [facility] 02-18-2023 16:27-0400 Body weight 73.[address] Manolo Tolbert Work Phone: [facility] 02-16-2023 23:22-0400 Diastolic blood pressure 55 mm[Hg] [facility] 02-16-2023 23:22-0400 Heart rate 65 /min [facility] 02-16-2023 23:22-0400 Respiratory rate 17 /min [facility] 02-16-2023 23:22-0400 SaO2% (BldA) [Mass fraction] 99 % [facility] 02-16-2023 23:22-0400 Systolic blood pressure 121 mm[Hg] [facility] 02-16-2023 22:05-0400 Body height 157.[address] [facility] 02-16-2023 22:05-0400 Body mass index (BMI) [Ratio] 29.7 kg/m2 [facility] 02-16-2023 22:05-0400 Body temperature 99 [degF] [facility] 02-16-2023 22:05-0400 Body weight 73.[address] [facility] 01-19-2023 11:20-0400 Body temperature 99.1 [degF] Nikkie Newman APRN.KNIFE FINISHER Work Phone: [facility] 01-19-2023 11:20-0400 Body weight 75.48 kg Nikkie Newman APRN.KNIFE FINISHER Work Phone: [facility] 01-19-2023 11:20-0400 Diastolic blood pressure 78 mm[Hg] Nikkie Newman APRN.KNIFE FINISHER Work Phone: [facility] 01-19-2023 11:20-0400 Heart rate 91 /min Nikkie Newman APRN.KNIFE FINISHER Work Phone: [facility] 01-19-2023 11:20-0400 Respiratory rate 21 /min Nikkie Newman APRN.KNIFE FINISHER Work Phone: [facility] 01-19-2023 11:20-0400 SaO2% (BldA) [Mass fraction] 98 % Nikkie Newman APRN.KNIFE FINISHER Work Phone: [facility] 01-19-2023 11:20-0400 Systolic blood pressure 122 mm[Hg] Nikkie Newman APRN.KNIFE FINISHER Work Phone: [facility] 01-10-2023 10:25-0400 Body temperature 97.7 [degF] Nikkie Newman APRN.KNIFE FINISHER Work Phone: [facility] 01-10-2023 10:25-0400 Body weight 74.39 kg Nikkie Newman APRN.KNIFE FINISHER Work Phone: [facility] 01-10-2023 10:25-0400 Diastolic blood pressure 72 mm[Hg] Nikkie Newman APRN.KNIFE FINISHER Work Phone: [facility] 01-10-2023 10:25-0400 Heart rate 94 /min Nikkie Newman APRN.KNIFE FINISHER Work Phone: [facility] 01-10-2023 10:25-0400 Respiratory rate 16 /min Nikkie Newman APRN.KNIFE FINISHER Work Phone: [facility] 01-10-2023 10:25-0400 SaO2% (BldA) [Mass fraction] 97 % Nikkie Newman APRN.KNIFE FINISHER Work Phone: [facility] 01-10-2023 10:25-0400 Systolic blood pressure 128 mm[Hg] Nikkie Newman APRN.KNIFE FINISHER Work Phone: [facility] 07-09-2022 08:46-0500 Body temperature 99.3 [degF] Yony Burns ANTENNA DESIGN ENGINEER.KNIFE FINISHER Work Phone: [facility] 07-09-2022 08:46-0500 Body weight 70.4 kg Yony Burns ANTENNA DESIGN ENGINEER.KNIFE FINISHER Work Phone: [facility] 07-09-2022 08:46-0500 Diastolic blood pressure 84 mm[Hg] Yony Octavianolechely ANTENNA DESIGN ENGINEER.KNIFE FINISHER Work Phone: [facility] 07-09-2022 08:46-0500 Heart rate 104 /min Yony Burns ANTENNA DESIGN ENGINEER.KNIFE FINISHER Work Phone: [facility] 07-09-2022 08:46-0500 Respiratory rate 16 /min Yony Burns ANTENNA DESIGN ENGINEER.KNIFE FINISHER Work Phone: [facility] 07-09-2022 08:46-0500 SaO2% (BldA) [Mass fraction] 96 % Yony Burns ANTENNA DESIGN ENGINEER.KNIFE FINISHER Work Phone: [facility] 07-09-2022 08:46-0500 Systolic blood pressure 136 mm[Hg] Yony Burns ANTENNA DESIGN ENGINEER.KNIFE FINISHER Work Phone: [facility] Encounters Encounter Date Encounter Type Care Provider Facility Start: 08-27-2024 End: 08-27-2024 Emergency department patient visit Mihai Warner Facility:[facility] Start: 07-12-2024 End: 07-12-2024 ambulatory [facility] Facility:[facility] Start: 07-12-2024 End: 07-12-2024 Office outpatient visit 15 minutes Yony Burns ANTENNA DESIGN ENGINEER.KNIFE FINISHER Work Phone: [facility] Comment on above: Eustachian tube dysf unction, bilateral (Primary Dx) Start: 04-17-2023 End: 04-17-2023 Office outpatient visit 15 minutes Yony Burns ANTENNA DESIGN ENGINEER.KNIFE FINISHER Work Phone: [facility] Comment on above: Sore throat (Primary Dx); Viral illness Start: 02-19-2023 Non-patient / Non-visit Dr. Manolo Tolbert Work Phone: [facility] Work Phone: Start: 02-18-2023 Non-patient / Non-visit Dr. Manolo Tolbert Work Phone: [facility] Work Phone: Start: 02-18-2023 End: 02-20-2023 Evaluation and management of inpatient Dr. Manolo Tolbert Work Phone: [facility]-Medical Surgical 3 Work Phone: Start: 02-16-2023 End: 02-17-2023 Emergency department patient visit [facility]gency [facility] Work Phone: Start: 01-19-2023 End: 01-19-2023 Patient encounter procedure Nikkie Newman APRN.KNIFE FINISHER Work Phone: [facility] Comment on above: Sore throat (Primary Dx); Rhinosinusitis Start: 01-10-2023 End: 01-10-2023 Patient encounter procedure Nikkie Newman MARLEEN.KNIFE FINISHER Work Phone: [facility] Comment on above: Sore throat (Primary Dx) Start: 07-09-2022 End: 07-09-2022 Office outpatient visit 25 minutes Yony Burns APRN.KNIFE FINISHER Work Phone: [facility] Comment on above: Bacterial sinusitis (Primary Dx) Procedures Date Procedure Procedure Detail Performing Clinician Start: 04-17-2023 STREP A MOLECULAR (POC) Yony Burns APRN.KNIFE FINISHER Work Phone: Start: 02-18-2023 SARS-CoV-2 & FLU Antigen (Rapid) Dr. Manolo Tolbert Work Phone: Start: 02-18-[address] Manolo Tolbert Work Phone: Start: 02-18-2023 CT of thorax with contrast Dr. Manolo Tolbert Work Phone: Start: 02-18-2023 Plain chest X-ray Dr. Kamini Tolbert Work Phone: Start: 02-16-2023 Plain chest X-ray Start: 02-16-2023 Plain X-ray of shoulder Start: 02-16-2023 SARS-CoV-2 & FLU Antigen (Rapid) Start: 01-19-2023 STREP A MOLECULAR (POC) Torrie Banda PA-C Work Phone: Start: 01-10-2023 STREP A MOLECULAR (POC) Chandler Myers APRN.KNIFE FINISHER Work Phone: Start: 06-08-2018 End: 03-07-2019 H/O: section History of delivery, currently Yony Burns APRN.KNIFE FINISHER Work Phone: Plan of Treatment Date Care Activity Detail Author Start: 12-08-2028 [facility] Start: 04-13-2026 PAP TESTING PAP TESTING [facility] Start: 04-13-2024 PAP TESTING PAP TESTING [facility] Start: 04-13-2024 Screening for malignant neoplasm of cervix Cervical Cancer Screening [facility] Start: 03-11-2024 Covid-19 Vaccine ( season) Covid-19 Vaccine () [facility] Start: 03-11-2024 Influenza vaccination Influenza Vaccine (#1) [facility] Start: 03-11-2023 Influenza vaccination [facility] Start: 02-20-2023 Patient discharge [facility] Start: 02-18-2023 Following clinical pathway protocol [facility] Start: 02-18-2023 Ambulation without limitation [facility] Start: 02-18-2023 Assessment of risk of venous thromboembolism [facility] Start: 02-18-2023 Insertion of catheter into peripheral vein [facility] Start: 02-18-2023 Providing care according to standard [facility] Start: 02-18-2023 [facility] Start: 02-18-2023 Admission procedure [facility] Start: 02-18-2023 Bacteria identified in Blood by Culture Blood Culture [facility] Start: 02-18-2023 End: 02-18-2023 Blood culture [facility] Start: 2022 HPV TESTING HPV TESTING [facility] Start: 07-11-2022 DEPRESSION ASSESSMENT DEPRESSION ASSESSMENT [facility] Start: 03-11-2022 Influenza vaccination INFLUENZA (#1) [facility] Start: 2010 Anxiety Screening Anxiety Screening [facility] Start: 2010 Depression Screening Depression Screening [facility] Start: 05-11-1993 COVID-19 VACCINE (#1) COVID-19 VACCINE (#1) [facility] Patient Education ED Dysuria, Un certain Cause (Adult) ED Shoulder Pain, Uncertain Cause [facility] Work Phone: Patient referral [facility] Work Phone: West Nile virus IgG Ab [Presence] in Cerebral spinal fluid [facility] West Nile virus IgM Ab [Presence] in Serum by Immunoassay [facility] Immunizations Immunization Date Immunization Notes Care Provider Fa cility 12-25-2018 tetanus toxoid, reduced diphtheria toxoid, and acellular pertussis vaccine, adsorbed [facility] 12-08-2018 tetanus toxoid, reduced diphtheria toxoid, and acellular pertussis vaccine, adsorbed Yony Pendlebury ANTENNA DESIGN ENGINEER.[facility] Work Phone: [facility] 02-04-2016 tetanus toxoid, reduced diphtheria toxoid, and acellular pertussis vaccine, adsorbed Yony Pendlebury ANTENNA DESIGN ENGINEER.[facility] Work Phone: [facility] Work Phone: 04-26-2011 tuberculin skin test ; purified protein derivative solution, intradermal Yony Pendjonathonbury ANTENNA DESIGN ENGINEER.[facility] Work Phone: [facility] Work Phone: 09-01-2009 human papilloma viru s vaccine, quadrivalent [facility] ANTENNA DESIGN ENGINEER.[facility] Work Phone: [facility] Work Phone: 04-14-2009 human papilloma viru s vaccine, quadrivalent Yony Pendlebury ANTENNA DESIGN ENGINEER.[facility] Work Phone: [facility] Work Phone: 02-12-2009 human papilloma viru s vaccine, quadrivalent Yony Pendlebury ANTENNA DESIGN ENGINEER.[facility] Work Phone: [facility] Work Phone: 02-12-2009 Meningococcal, MCV4, unspecified conjugate formulation(groups A, C, Y and W-135) [facility] ANTENNA DESIGN ENGINEER.[facility] Work Phone: [facility] Work Phone: 02-12-2009 tetanus toxoid, reduced diphtheria toxoid, and acellular pertussis vaccine, adsorbed Yony Pendlebury ANTENNA DESIGN ENGINEER.[facility] Work Phone: [facility] Work Phone: 03-12-1998 diphtheria, tetanus toxoids and pertussis vaccine [facility] ANTENNA DESIGN ENGINEER.[facility] Work Phone: [facility] Work Phone: 10-10-1997 measles, mumps and rubella virus vaccine Yony Woodchely ANTENNA DESIGN ENGINEER.[facility] Work Phone: [facility] Work Phone: 10-10-1997 trivalent poliovirus vaccine, live, oral Yonyantoinette Woodchely ANTENNA DESIGN ENGINEER.KNIFE FINISHER Work Phone: [facility] Work Phone: 11-10-1995 DTP-Haemophilus influenzae type b conjugate vaccine Yonyantoinette Woodchely ANTENNA DESIGN ENGINEER.KNIFE FINISHER Work Phone: [facility] Work Phone: 11-10-1995 Tetramune Yonyantoinette Nelson ursilviano ANTENNA DESIGN ENGINEER.[facility] Work Phone: [facility] Work Phone: 01-18-1994 measles, mumps and rubella virus vaccine Yony Woodchely ANTENNA DESIGN ENGINEER.[facility] Work Phone: [facility] Work Phone: 10-15-1993 diphtheria, tetanus toxoids and pertussis vaccine [facility] ANTENNA DESIGN ENGINEER.KNIFE FINISHER Work Phone: [facility] Work Phone: 10-15-1993 haemophilus influenz ae type b vaccine, HbOC conjugate [facility] ANTENNA DESIGN ENGINEER.[facility] Work Phone: [facility] Work Phone: 10-15-1993 trivalent poliovirus vaccine, live, oral Yonyantoinette Woodchely ANTENNA DESIGN ENGINEER.[facility] Work Phone: [facility] Work Phone: 07-30-1993 diphtheria, tetanus toxoids and pertussis vaccine [facility] ANTENNA DESIGN ENGINEER.KNIFE FINISHER Work Phone: [facility] Work Phone: 07-30-1993 haemophilus influenz ae type b vaccine, HbOC conjugate [facility] ANTENNA DESIGN ENGINEER.KNIFE FINISHER Work Phone: [facility] Work Phone: 07-30-1993 hepatitis B vaccine, pediatric or pediatric/adolescent dosage Yony Katy ANTENNA DESIGN ENGINEER.KNIFE FINISHER Work Phone: [facility] Work Phone: 07-30-1993 trivalent poliovirus vaccine, live, oral [place] [facility] ANTENNA DESIGN ENGINEER.KNIFE FINISHER Work Phone: [facility] Work Phone: 02-26-1993 diphtheria, tetanus toxoids and pertussis vaccine [facility] ANTENNA DESIGN ENGINEER.[facility] Work Phone: [facility] Work Phone: 02-26-1993 haemophilus influenz ae type b vaccine, HbOC conjugate [facility] ANTENNA DESIGN ENGINEER.[facility] Work Phone: [facility] Work Phone: 02-26-1993 trivalent poliovirus vaccine, live, oral [facility] ANTENNA DESIGN ENGINEER.[facility] Work Phone: [facility] Work Phone: 1992 hepatitis B vaccine, pediatric or pediatric/adolescent dosage [facility] ANTENNA DESIGN ENGINEER.[facility] Work Phone: [facility] Work Phone: 1992 hepatitis B vaccine, pediatric or pediatric/adolescent dosage [facility] ANTENNA DESIGN ENGINEER.[facility] Work Phone: [facility] Work Phone: Payers Date Payer Category Payer Self-pay [id number] 2023 Unknown [id number] 2017 Unknown [id number] 2016 [id number] [id number] [id number] Unknown [id number] Social History Date Type Detail Facility Start: 07-09-2022 Tobacco smoking stat us NHIS Never smoked tobacco [facility] Start: 07-09-2022 Tobacco use and exposure Smokeless tobacco non-user [facility] Start: 07-09-2022 End: 07-12-2024 Alcohol intake Current non-drinker of alcohol (finding) [facility] Start: 1990 Sex Assigned At Not on file [facility] Start: 01-19-2023 End: 04-24-2024 History of Social function [facility] Start: 01-19-2023 End: 04-24-2024 Tobacco use panel [facility] Start: 02-16-2023 End: 02-18-2023 Tobacco smoking status NHIS Unknown if ever smoked [facility] Start: 1990 Sex Assigned At Female W [facility] National Score (1-100), lower number is lower risk Not on file [facility] Start: 03-13-2024 Gender identity Identifies as female gender (finding) [facility] Start: 03-13-2024 Sexual orientation Heterosexual (fin yancy) [facility] NEGATED: Highlighted row [facility] Goals Date Patient Goal Desired Activity /State Functional Status Date Assessment Result Facility 02-20-2023 Functional status Ambulates;Bathroom Priv ilege [facility] Work Phone: Mental Status Date Assessment Result Facility 02-20-2023 Cognitive function Voice/Name [facility] Work Phone: 02-16-2023 Cognitive function Level Of Cons ciousness Awake;Alert;Appropriate;Follow s Commands [facility] Work Phone: Clinical Notes 06-08-2018 to 07-12-2024 Yony Burns APRN.KNIFE FINISHER - 07/12/2024 4:33 PM ESTPatient InstructionsYony Burns APRN.KNIFE FINISHER - 04/17/2023 8:32 AM EDT Note Date & Type Note Facility 07-12-2024 Note HNO ID: [id number] Author: YONY BURNS APRN.CNP Service: ? Author Type: Nurse Practitioner Type: Progress Notes Filed: 07/12/2024 16:51 Note Text: Subjective HPI Nontoxic-appearing female presents urgent care chief complaintNontoxic-appearing female presents urgent care chief plaint possible ear infection. Duration of symptom 1 day. Association of bilateral pressure pain. States did have URI symptoms last week. The symptoms have improved. Still has a bit of rhinorrhea. OTC medications none. No significant pain. Denies any ear trauma loss hearing or otorrhea. No fevers. Past medical history prescription medications allergies reviewed. .Patient presents with: Ear Problem: JACKELINE ear pain x 1 day PAST MEDICAL HISTORY Diagnosis Date Allergy, unspecified not elsewhere classified environmental Hyperhydrosis disorder Miscarriage 08/2014 PAST SURGICAL HISTORY Procedure Laterality Date DELIVERY ONLY 04/23/2016 , low transverse DELIVERY ONLY 01/23/2019 RC/S low transverse CORRECTION OF BUNION Right Right foot PAST SURGICAL HISTORY OF nose and upper lip surgery from a dog bite. REM LESION NEC,HND,SCAL 0.6-1.0CM 05/20/2007 Exc. right inferior areolar breast lesion ALLERGIES Seasonal Allergies MEDICATIONS albuterol HFA (PROVENTIL HFA, VENTOLIN HFA) 90 mcg/actuation inhaler Inhale 2 Puffs as instructed every 4 hours as needed for wheezing/shortness of breath. (Patient not taking: Reported on 07/09/2022) benzonatate (TESSALON PERLES) 100 mg capsule Take 1-2 capsules by mouth three times daily as needed. (Patient not taking: Reported on 07/09/2022) FAMILY HISTORY Problem Relation Age of Onset No Known Problems Mother Allergies Father other (Hepatitis C) Father other (Hep C) Brother Half-Brother No Known Problems Maternal Grandmother other (ALS) Maternal Grandfather Thyroid Paternal Grandmother other (Crohn's Disease) Paternal Grandmother No Known Problems Paternal Grandfather Diabetes Other maternal great grandparents and great aunts and uncles. Heart Other maternal great grandfathers. Breast Cancer Other Maternal Great Grandmother other (undescended testicle, stent in left eye for blocked tear duct) Son Social History Tobacco Use Smoking status: Never Smokeless tobacco: Never Vaping Use Vaping status: Never Used Substance Use Topics Alcohol use: No Drug use: No BP 110/76 Pulse 80 Temp 36.9 ?C (98.4 ?F) Resp 20 Wt 80.3 kg (177 lb 0.5 oz) LMP 03/29/2021 SpO2 98% BMI 31.36 kg/m? Review of Systems Constitutional: Negative for chills, fever and malaise/fatigue. HENT: Positive for congestion and ear pain. Negative for ear discharge, sinus pain and sore throat. Eyes: Negative for blurred vision, pain, discharge and redness. Respiratory: Negative for cough, hemoptysis, sputum production, shortness of breath, wheezing and stridor. Cardiovascular: Negative for chest pain. Gastrointestinal: Negative for abdominal pain, diarrhea, nausea and vomiting. Musculoskeletal: Negative for myalgias. Skin: Negative for itching and rash. Neurological: Negative for dizziness and headaches. Objective Physical Exam Constitutional: General: She is not in acute distress. Appearance: She is not diaphoretic. HENT: Head: Normocephalic. Jaw: No trismus, tenderness, swelling or pain on movement. Right Ear: Tympanic membrane, ear canal and external ear normal. Left Ear: Tympanic membrane, ear canal and external ear normal. Ears: Comments: Fluid behind bilateral TMs noted. No evidence of bacterial infection. Nose: Congestion present. Mouth/Throat: Mouth: Mucous membranes are moist. Pharynx: Oropharynx is clear. Uvula midline. No pharyngeal swelling, oropharyngeal exudate, posterior oropharyngeal erythema or uvula swelling. Eyes: Conjunctiva/sclera: Conjunctivae normal. Pupils: Pupils are equal, round, and reactive to light. Cardiovascular: Rate and Rhythm: Normal rate and regular rhythm. Heart sounds: Normal heart sounds. Pulmonary: Effort: Pulmonary effort is normal. No tachypnea, accessory muscle usage or respiratory distress. Breath sounds: Normal breath sounds. No stridor. No wheezing, rhonchi or rales. Abdominal: General: There is no distension. Palpations: Abdomen is soft. Tenderness: There is no abdominal tenderness. There is no guarding or rebound. Musculoskeletal: Cervical back: Normal range of motion and neck supple. No edema, erythema, rigidity or tenderness. No pain with movement. Normal range of motion. Lymphadenopathy: Cervical: No cervical adenopathy. Skin: General: Skin is warm and dry. Neurological: Mental Status: She is alert and oriented to person, place, and time. ASSESSMENT/PLAN: 1. Eustachian tube dysfunction, bilateral - ICD9: 381.81, ICD10: H69.93 Diagnosed with eustachian tube dysfunction. No evidence of infection. Treat supporti (more content not included)... [facility] 07-12-2024 History of Present illness Narrative Subjective HPI Nontoxic-appearing female presents urgent care chief complaintNontoxic-appearing female presents urgent care chief plaint possible ear infection. Duration of symptom 1 day. Association of bilateral pressure pain. States did have URI symptoms last week. The symptoms have improved. Still has a bit of rhinorrhea. OTC medications none. No significant pain. Denies any ear trauma loss hearing or otorrhea. No fevers. Past medical history prescription medications allergies reviewed. .Patient presents with: Ear Problem: JACKELINE ear pain x 1 day PAST MEDICAL HISTORY Diagnosis Date Allergy, unspecified not elsewhere classified environmental Hyperhydrosis disorder Miscarriage 08/2014 PAST SURGICAL HISTORY Procedure Laterality Date DELIVERY ONLY 04/23/2016 , low transverse DELIVERY ONLY 01/23/2019 RC/S low transverse CORRECTION OF BUNION Right Right foot PAST SURGICAL HISTORY OF nose and upper lip surgery from a dog bite. REM LESION NEC,HND,SCAL 0.6-1.0CM 05/20/2007 Exc. right inferior areolar breast lesion ALLERGIES Seasonal Allergies MEDICATIONS albuterol HFA (PROVENTIL HFA, VENTOLIN HFA) 90 mcg/actuation inhaler Inhale 2 Puffs as instructed every 4 hours as needed for wheezing/shortness of breath. (Patient not taking: Reported on 07/09/2022) benzonatate (TESSALON PERLES) 100 mg capsule Take 1-2 capsules by mouth three times daily as needed. (Patient not taking: Reported on 07/09/2022) FAMILY HISTORY Problem Relation Age of Onset No Known Problems Mother Allergies Father other (Hepatitis C) Father other (Hep C) Brother Half-Brother No Known Problems Maternal Grandmother other (ALS) Maternal Grandfather Thyroid Paternal Grandmother other (Crohn's Disease) Paternal Grandmother No Known Problems Paternal Grandfather Diabetes Other maternal great grandparents and great aunts and uncles. Heart Other maternal great grandfathers. Breast Cancer Other Maternal Great Grandmother other (undescended testicle, stent in left eye for blocked tear duct) Son Social History Tobacco Use Smoking status: Never Smokeless tobacco: Never Vaping Use Vaping status: Never Used Substance Use Topics Alcohol use: No Drug use: No BP 110/76 Pulse 80 Temp 36.9 C (98.4 F) Resp 20 Wt 80.3 kg (177 lb 0.5 oz) LMP 03/29/2021 SpO2 98% BMI 31.36 kg/m \ Review of Systems Constitutional: Negative for chills, fever and malaise/fatigue. HENT: Positive for congestion and ear pain. Negative for ear discharge, sinus pain and sore throat. Eyes: Negative for blurred vision, pain, discharge and redness. Respiratory: Negative for cough, hemoptysis, sputum production, shortness of breath, wheezing and stridor. Cardiovascular: Negative for chest pain. Gastrointestinal: Negative for abdominal pain, diarrhea, nausea and vomiting. Musculoskeletal: Negative for myalgias. Skin: Negative for itching and rash. Neurological: Negative for dizziness and headaches. Objective Physical Exam Constitutional: General: She is not in acute distress. Appearance: She is not diaphoretic. HENT: Head: Normocephalic. Jaw: No trismus, tenderness, swelling or pain on movement. Right Ear: Tympanic membrane, ear canal and external ear normal. Left Ear: Tympanic membrane, ear canal and external ear normal. Ears: Comments: Fluid behind bilateral TMs noted. No evidence of bacterial infection. Nose: Congestion present. Mouth/Throat: Mouth: Mucous membranes are moist. Pharynx: Oropharynx is clear. Uvula midline. No pharyngeal swelling, oropharyngeal exudate, posterior oropharyngeal erythema or uvula swelling. Eyes: Conjunctiva/sclera: Conjunctivae normal. Pupils: Pupils are equal, round, and reactive to light. Cardiovascular: Rate and Rhythm: Normal rate and regular rhythm. Heart sounds: Normal heart sounds. Pulmonary: Effort: Pulmonary effort is normal. No tachypnea, accessory muscle usage or respiratory distress. Breath sounds: Normal breath sounds. No stridor. No wheezing, rhonchi or rales. Abdominal: General: There is no distension. Palpations: Abdomen is soft. Tenderness: There is no abdominal tenderness. There is no guarding or rebound. Musculoskeletal: Cervical back: Normal range of motion and neck supple. No edema, erythema, rigidity or tenderness. No pain with movement. Normal range of motion. Lymphadenopathy: Cervical: No cervical adenopathy. Skin: General: Skin is warm and dry. Neurological: Mental Status: She is alert and oriented to person, place, and time. ASSESSMENT/PLAN: 1. Eustachian tube dysfunction, bilateral - ICD9: 381.81, ICD10: H69.93 Diagnosed with eustachian tube dysfunction. No evidence of infection. Treat supportively with Flonase and Zyrtec. Patient was educated on supportive therapies. Patient will follow up with primary care provider as needed. Patient was instructed to immediately proceed to emergency room for any new, worsening, or symptoms lasting longer than anticipated. The patient's clinical presentation is otherwise unremarkable at this time. Based on exam and clinical finding, the patient is stable for discharge. Plan of care was discussed with patient. Patient verbalizes understanding and agrees to plan of care. This note was generated using [employer]™ software. It may contain errors in wording, punctuation, or spelling. Yony Burns APRN.BROOK documented in this encounter [facility] 04-17-2023 Instructions Yony Burns APRN.CNP - 04/17/2023 8:40 AM EDT [facility] PATIENT INFO PHARYNGITIS OVERVIEW A sore throat (pharyngitis) is a common problem, and usually is caused by a viral or bacterial infection. Sore throat usually resolves on its own without complications in adults, although it is important to know when to seek medical attention. Viruses can cause a sore throat and other upper respiratory infections, such as the common cold. Sore throat caused by a virus is not treated with antibiotics, but instead may be treated with rest, pain medication, and other therapies aimed at relieving symptoms. Strep throat is a particular kind of pharyngitis that is caused by a bacterium known as group A streptococcus (GAS). Strep throat is treated with a course of antibiotics. SORE THROAT SYMPTOMS Viral pharyngitis -- Most people with a sore throat have a virus. The most common viruses are those that cause upper respiratory infections, such as the common cold. Symptoms of a viral infection can include: A runny or congested nose Irritation or redness of the eyes Cough, hoarseness, or soreness in the roof of the mouth Some viruses cause a fever and can make you feel quite ill. Strep throat -- Approximately 10 percent of adults with a sore throat have strep throat. Signs and symptoms of strep throat include the following: Pain in the throat Fever (temperature greater than 100.4 F or 38 C) Enlarged lymph glands in the neck White patches of pus on the side or back of the throat No cough, runny nose, or irritation/redness of the eyes Other infections -- Many other less common but more serious infections can cause a sore throat, including mononucleosis (mono), influenza (the flu), N. gonococcus (gonorrhea), human immunodeficiency virus (HIV), and others. When to seek urgent help -- See your doctor or nurse immediately if you have a sore throat along with any of the following: Difficulty breathing Skin rash Drooling because you cannot swallow Swelling of the neck or tongue Stiff neck or difficulty opening the mouth SORE THROAT DIAGNOSIS Most people with a sore throat get better without treatment. There is no specific treatment for a sore throat caused by usual cold viruses. Is it strep or not? -- A combination of symptoms (fever, enlarged glands in the neck, white patches on your tonsils, and no cough) can help in determining if you have strep. If you have two or more symptoms, a rapid test or throat culture may be done. People with fewer than two symptoms usually do not need testing or treatment for strep throat. Rapid test -- The rapid test determines if there are streptococcus bacteria on a throat swab. The test can be done in a clinician's office and the results are available within a few minutes. The test is accurate in most cases, although a small percentage of tests are falsely negative (the bacteria are present but the test is negative). Throat culture -- A throat culture involves swabbing the throat, sending the swab to a laboratory, and waiting 24 to 48 hours for the results. Throat cultures are slightly more accurate than the rapid test. TREATMENT OF SORE THROAT Sore throat treatment -- Antibiotics do not help throat pain caused by a virus and are not recommended. Sore throat caused by viral infections usually lasts four to five days. During this time, treatments to reduce pain may be helpful. Several therapies can help to relieve throat pain. Pain medication -- You can treat your throat pain with a mild pain reliever such as acetaminophen (Tylenol ) or a non-steroidal anti-inflammatory agent such as ibuprofen or naproxen (Motrin or Aleve ). Oral rinses -- Salt-water gargles are an old stand-by for throat pain. It is not clear that salt water works to relieve pain, but it is unlikely to be harmful. Most recipes suggest 1/4 to 1/2 teaspoon of salt per one cup (8 ounces) of warm water. Sprays -- Sprays containing topical anesthetics (eg, benzocaine, phenol) are available to treat sore throat. However, such sprays are no more effective than sucking on hard candy. Lozenges -- A variety of lozenges (cough drops) are available to treat throat pain or relieve dryness. However, it is not clear that lozenges work any better than other forms of hard candy, which are generally less expensive. Other treatments -- Other treatments that may help with throat pain include sipping warm beverages (eg, honey or lemon tea, chicken soup), cold beverages, or eating cold or frozen desserts (eg, ice cream, popsicles). Alternative therapies -- [employer] food stores, vitamin outlets, and Internet Web sites offer alternative treatments for relief of sore throat pain. We do not recommend these type of treatments due to the risks of contamination with pesticides/herbicides, inaccurate labeling and dosing information, and a lack of studies showing that these treatments are safe and effective. Strep throat -- Although strep throat typically resolves on its own within two to five days, treatment with antibiotics is recommended for adults whose rapid test or throat culture is positive for strep throat. Penicillin, or an antibiotic related to penicillin, is the treatment of choice for strep throat. It is usually given in pill or liquid form two to four times per day for 10 days. A one time injection of penicillin is also available. People who are allergic to penicillin are given an alternate antibiotic. It is important to finish the entire course of treatment to completely eliminate the infection. If symptoms do not begin to improve or worsen by three days of antibiotic treatment, you should see your doctor or nurse again. Return to work/school -- If you have been diagnosed with strep throat, stay home from work or school until you have completed 24 hours of antibiotics. Within 24 hours of beginning antibiotic treatment, you will feel better and will be less contagious [1]. If you have a sore throat (not diagnosed as strep), you may participate in your usual activities as soon as you feel well. SORE THROAT PREVENTION Hand washing is an essential and highly effective way to prevent the spread of infection. Wet your hands with water and plain soap, and rub them together for 15 to 30 seconds. Pay special attention to the fingernails, between the fingers, and the wrists. Rinse your hands thoroughly, and dry them with a clean towel. Alcohol-based hand rubs are a good alternative for disinfecting hands if a sink is not available. Hand rubs should be spread over the entire surface of hands, fingers, and wrists until dry, and may be used several times. These rubs can be used repeatedly without skin irritation or loss of effectiveness. Hand rubs are available as a liquid or wipe in small, portable sizes that are easy to carry in a pocket or handbag. When a sink is available, visibly soiled hands should be washed with soap and water. Wash your hands after coughing, blowing the nose, or sneezing. While it is not always possible to avoid being near a person who is sick, avoiding touching your eyes, nose, or mouth to prevent the spread of infection. In addition, tissues should be used to cover the mouth when sneezing or coughing. These used tissues should be disposed of promptly. Sneezing/coughing into your sleeve (at the inner elbow) is another way to contain sprays of saliva and secretions and will not contaminate your hand documented in this encounter [facility] 04-17-2023 History of Present illness Narrative Subjective HPI Nontoxic-appearing female presents urgent care chief plaint fever body aches chills sore throat headache. Duration of symptoms today. Associated symptoms listed above. Presents today for evaluation. Concerned about possible strep throat. States tested positive for strep throat little while ago. States children were sick but they tested negative for strep that her symptoms have improved. Presents today for evaluation. Denies any other concerns. No OTC medication use recently. Denies any high fevers productive cough chest pain shortness of breath pleuritic pain hemoptysis nausea vomiting abdominal pain difficulty swallowing and excretion decreased range of motion of neck. Past medical history prescription medication use allergies reviewed. .Patient presents with: Sore Throat: headache, chills and fever x 1 day strep exposure PAST MEDICAL HISTORY Diagnosis Date Allergy, unspecified not elsewhere classified environmental Hyperhydrosis disorder Miscarriage 08/2014 PAST SURGICAL HISTORY Procedure Laterality Date DELIVERY ONLY 04/23/2016 , low transverse DELIVERY ONLY 01/23/2019 RC/S low transverse CORRECTION OF BUNION Right Right foot PAST SURGICAL HISTORY OF nose and upper lip surgery from a dog bite. REM LESION NEC,HND,SCAL 0.6-1.0CM 05/20/2007 Exc. right inferior areolar breast lesion ALLERGIES Seasonal Allergies MEDICATIONS albuterol HFA (PROVENTIL HFA, VENTOLIN HFA) 90 mcg/actuation inhaler Inhale 2 Puffs as instructed every 4 hours as needed for wheezing/shortness of breath. (Patient not taking: Reported on 07/09/2022) benzonatate (TESSALON PERLES) 100 mg capsule Take 1-2 capsules by mouth three times daily as needed. (Patient not taking: Reported on 07/09/2022) FAMILY HISTORY Problem Relation Age of Onset No Known Problems Mother Allergies Father other (Hepatitis C) Father other (Hep C) Brother Half-Brother No Known Problems Maternal Grandmother other (ALS) Maternal Grandfather Thyroid Paternal Grandmother other (Crohn's Disease) Paternal Grandmother No Known Problems Paternal Grandfather Diabetes Other maternal great grandparents and great aunts and uncles. Heart Other maternal great grandfathers. Breast Cancer Other Maternal Great Grandmother other (undescended testicle, stent in left eye for blocked tear duct) Son Social History Tobacco Use Smoking status: Never Smokeless tobacco: Never Vaping Use Vaping Use: Never used Substance Use Topics Alcohol use: No Drug use: No BP 110/68 Pulse 98 Temp 37.1 C (98.7 F) Resp 16 Wt 73.5 kg (162 lb) LMP 03/29/2021 SpO2 99% BMI 28.70 kg/m Review of Systems Constitutional: Positive for chills, fever and malaise/fatigue. HENT: Positive for sore throat. Negative for congestion, ear discharge, ear pain and sinus pain. Eyes: Negative for blurred vision, pain, discharge and redness. Respiratory: Negative for cough, hemoptysis, sputum production, shortness of breath, wheezing and stridor. Cardiovascular: Negative for chest pain. Gastrointestinal: Negative for abdominal pain, diarrhea, nausea and vomiting. Musculoskeletal: Positive for myalgias. Skin: Negative for itching and rash. Neurological: Positive for headaches. Negative for dizziness. Objective Physical Exam Constitutional: General: She is not in acute distress. Appearance: She is not diaphoretic. HENT: Head: Normocephalic. Jaw: No trismus, tenderness, swelling or pain on movement. Mouth/Throat: Mouth: Mucous membranes are moist. Pharynx: Oropharynx is clear. Uvula midline. Posterior oropharyngeal erythema present. No pharyngeal swelling, oropharyngeal exudate or uvula swelling. Tonsils: No tonsillar exudate or tonsillar abscesses. Eyes: Conjunctiva/sclera: Conjunctivae normal. Pupils: Pupils are equal, round, and reactive to light. Cardiovascular: Rate and Rhythm: Normal rate and regular rhythm. Heart sounds: Normal heart sounds. Pulmonary: Effort: Pulmonary effort is normal. No tachypnea, accessory muscle usage or respiratory distress. Breath sounds: Normal breath sounds. No stridor. No wheezing, rhonchi or rales. Abdominal: General: There is no distension. Palpations: Abdomen is soft. Tenderness: There is no abdominal tenderness. There is no guarding or rebound. Musculoskeletal: Cervical back: Normal range of motion and neck supple. No edema, erythema, rigidity or tenderness. No pain with movement. Normal range of motion. Lymphadenopathy: Cervical: No cervical adenopathy. Skin: General: Skin is warm and dry. Neurological: Mental Status: She is alert and oriented to person, place, and time. ASSESSMENT/PLAN: 1. Sore throat - ICD9: 462, ICD10: J02.9 (primary diagnosis) - STREP A MOLECULAR (POC) 2. Viral illness - ICD9: 079.99, ICD10: B34.9 Strep test negative. Diagnosed with viral illness. Treat conservatively. No evidence of bacterial infection. Red flags prompt reevaluation discussed. Patient was educated on supportive therapies. Patient will follow up with primary care provider as needed. Patient was instructed to immediately proceed to emergency room for any new, worsening, or symptoms lasting longer than anticipated. The patient's clinical presentation is otherwise unremarkable at this time. Based on exam and clinical finding, the patient is stable for discharge. Plan of care was discussed with patient. Patient verbalizes understanding and agrees to plan of care. This note was generated using [employer]™ software. It may contain errors in wording, punctuation, or spelling. Yony Burns APRN.KNIFE FINISHER documented in this encounter [facility] 02-19-2023 Progress note Note Date/Time February 19, 2023 3:22pm [facility] Medical Records Department [address] [place] [address] Progress Note - Hospitalist 02/19/23 1512 MR#: [id number] Acct: [id number] Name: JAGRUTI GORE POONAM Rep #:[id number] : 1990 32 From: Ronal stanford DO PCP: Care Physician,No Primary Status :ADM IN Location: [facility] [id number] Reason for Visit Reason for Visit: Diagnoses Acute lymphadenitis, unspecified (02/18/23) Subjective Subjective Patient seen at bedside, grandmother present. Patient states that she feels better today than she did yesterday. She has been able to get down a small amount of food and drink. No episodes of vomiting over the last 24 hours. She continues to feel mildly feverish and quite fatigued. She continues to have pain and discomfort in the right armpit area. She denies any shortness of breath or chest pain. No other acute concerns. Objective Data Objective Data Vital Signs: Vital Signs Temp Pulse Resp BP Pulse Ox O2 Del Method 99.7 F H 110 H 16 111/59 L 98 Room Air 02/19/23 08:45 02/19/23 08:45 02/19/23 08:45 02/19/23 08:45 02/19/23 08:45 02/19/23 08:53 Oxygen Delivery Method Room Air Weight: 73.482 kg Body Mass Index (BMI) 26.9 Intake & Output: Intake and Output for Last 24 Hours 02/17/23 02/18/23 02/19/23 23:59 23:59 23:59 Intake Total 2150 / 2350 2915 / 2915 Output Total 350 / 350 Balance 2150 / 2200 2565 / 2565 Lab / Micro Data Attestation: I reviewed the patient's lab results. 02/19/23 05:05 02/19/23 05:05 Labs: Laboratory Results - last 24 hr 02/19/23 05:05: WBC 8.4, RBC 3.60 L, Hgb 11.0 L, Hct 33.8 L, MCV 93.9, MCH 30.6,MCHC 32.5, RDW Std Deviation 40.8, RDW Coeff of Em 11.6, Plt Count 139 L, MPV 10.2, Immature Gran % (Auto) 0.800, Neut % (Auto) 86.2 H, Lymph % (Auto) 4.9 L, Childress % (Auto) 5.4, Eos % (Auto) 2.6, Baso % (Auto) 0.1, Absolute Neuts (auto) 7.2, Absolute Lymphs (auto) 0.41 L, Nucleated RBC % 0, Differential Comment SCANNED, Sodium 141, Potassium 3.2 L, Chloride 110 H, Carbon Dioxide 24.0, Anion Gap 7, BUN 7, Creatinine 0.68, Estim Creat Clear Calc 108.85, Est GFR (MDRD) Af Amer 131, Est GFR (MDRD) Non-Af 108, BUN/Creatinine Ratio 10.3, Glucose 92, Calcium 7.6 L, Magnesium 1.8 Micro: Microbiology 02/18/23 10:20 Urine, Clean Catch Urine Culture - Preliminary GNR lactose roulette dealer 02/18/23 09:56 Nasal Secretion SARS-CoV-2 & FLU Antigen (Rapid) - Final Physical Exam Const alert, oriented x3, no apparent distress and average body habitus Constitutional Narrative: Pleasant female, appears fatigued, resting comfortably in bed, conversing normally, no acute distress. General Appearance: cooperative and comfortable HEENT normocephalic, head/scalp atraumatic, hearing grossly normal bilaterally, nasal mucous membranes and turbinates normal and moist oral mucous membranes Eyes PERRL, EOMs intact bilaterally and conjunctivae normal Neck full ROM and supple Lymph Lymphatic Narrative: Mild lymphadenopathy noted in right armpit area. Chest inspection of chest normal Resp normal respiratory effort, normal air movement, no use of accessory muscles and clear to auscultation bilaterally Cardio regular rate, regular rhythm, no murmurs and peripheral pulses 2+ throughout GI normal to inspection, nondistended, normoactive bowel sounds, soft to palpation,non-tender and non-distended Back/Spine normal ROM Extremity normal to inspection, full ROM and no pedal edema Skin no rashes or lesions noted Psych mental status grossly normal Assessment & Plan Assessment/Plan (1) Lymphadenitis, acute: PLAN: Plan Patient is a 32-year-old female with no significant past medical history who presented to [facility] on 02/18/2023 with right axillary pain, nausea/vomiting and fevers/chills. Admitted for further management. 1. Sepsis without shock, right axillary lymphadenopathy, concern for UTI ?Suspect infection most likely secondary to microbial entry through small right-sided chest wall or armpit break of skin, as primary source of discomfort is right axillary region and there was trauma to this area when she was moving her washer and dryer recently. Less likely secondary to UTI as she has no UTI?related symptoms. CT chest with contrast on admission showed inflammatory changes in the right axilla with a large right axillary lymph nodes. Blood cultures with no growth to date. UA with 500 leukocyte esterase, negative nitrates, 1+ bacteria. Urine culture with preliminary result of GNR lactose roulette dealer of greater than 100,000 colonies. Continue IV Zosyn for now. Suspectpatient will be ready for discharge tomorrow; will plan to de-escalate to p.o. antibiotics tomorrow and decide on which antibiotic and course length once all culture data is back. Tylenol and ibuprofen as needed for pain control. DVT prophylaxis: Ambulation CODE STATUS: Full code, verified Total clinical time spent by myself addressing the patient's medical issues, reviewing all of the data, and collaborating with patient's care team: 35 minutes. Charges/Coding Visit Charges Inpatient E&M: 96874 Subs Hosp L2 02/19/23 1523 <Electronically signed by Ronal Trent DO> Cosigner Signature (if applicable): CC: ~ Signed [facility] Work Phone: [phone]) 704-338108-11-2023 History and physical note Author Enoch Casey [facility] February 18, 2023 3:41pm Note Date/Time February 18, 2023 3: 41pm [facility] Medical Records Department [address] [place] [address] [place] [address] H&P Exam - Hospitalist 02/18/23 1533 MR#: [id number] Acct: [id number] Name: JAGRUTI GORE Rep #:[id number] : 1990 32 From: Enoch berrios MD PCP: Care Physician,No Primary Status :ADM IN Location: [facility] [id number] HPI - General General Date of Admission: 02/18/23 HPI Narrative JAGRUTI GORE, is a 32 F who presents to the hospital with an axillary infection. She states that 3 days ago she was moving her washer dryer and noticed some right axillary/shoulder pain. It has progressively gotten worse and then she developed fevers and chills over the last 24 to 36 hours. She presented today secondary to continued worsening. She had been seen in the ER yesterday around 1 AM for this pain and at that time her CBC was slightly elevated to 11.4 but initially was felt that she likely had a shoulder strain. CT scan today demonstrates 2 axillary lymph nodes that appear swollen with surrounding stranding consistent with infection. White count is 14 and she is febrile and also tachycardic. She is been having some nausea and vomiting as well and has been unable to keep down any Tylenol. She denies any skin changes on her right breast or in her right arm and she has no signs of infection anywhere else in her right upper extremity or upper torso. She has been noticing some dysuria and does have a UA consistent with a UTI. She was given adose of Zosyn in the ER. She also feels that she is swollen everywhere and she has some burning sensation underneath her axilla on the right. PFSH Home Medications ibuprofen 600 mg tablet 600 mg PO Q6H PRN PRN Mild Pain (1-09/17) #30 tabs 01/25/19 [Rx Last Taken Unknown] Allergy/AdvReac Type Severity Reaction Status Date / Time No Known Allergies Allergy Verified 02/18/23 09:04 no significant family history Surgical History (Updated 02/18/23 @ 15:[address] Enoch Casey MD) Status post section Social History Smoking Status: Never smoker ROS Constitutional Constitutional: Reports chills, fatigue and fever(s); Denies malaise Eyes Eyes: Denies blurry vision ENT HEENT: Denies headache(s) or nasal discharge Cardiovascular Cardiovascular: Denies chest pain, dyspnea on exertion or syncope Respiratory/Chest Respiratory/Chest: Denies cough, shortness of breath at rest or shortness of breath with exertion Gastrointestinal Gastrointestinal: Reports nausea and vomiting; Denies constipation or diarrhea Genitourinary Genitourinary: Reports burning urination; Denies dysuria Neurologic Neurologic: Denies focal weakness, numbness or tremor(s) Psychiatric Psychiatric: Denies anxiety or depression Vital Signs Vital Signs Vital Signs: 02/18/23 09:02 02/18/23 09:27 02/18/23 09:27 Temperature 102.3 F H 102.5 F H 102.5 F H Temperature Source Temporal Oral Oral Pulse Rate 132 H 125 H 125 H Respiratory Rate 18 16 16 Respiratory Pattern Blood Pressure 113/77 132/81 H 132/81 H Blood Pressure Mean 89 98 98 Pulse Ox 100 100 100 Oxygen Delivery Method Room Air Room Air Room Air 02/18/23 09:27 02/18/23 10:20 02/18/23 11:11 Temperature 102.5 F H 100.7 F H Temperature Source Oral Oral Pulse Rate 130 H 114 H Respiratory Rate 18 15 Respiratory Pattern Normal Blood Pressure 154/83 H 131/75 H Blood Pressure Mean 106 93 Pulse Ox 98 100 Oxygen Delivery Method Room Air Room Air 02/18/23 11:11 02/18/23 12:07 02/18/23 12:07 Temperature 100.7 F H 100.9 F H 100.9 F H Temperature Source Oral Oral Oral Pulse Rate 114 H 119 H 115 H Respiratory Rate 15 19 H 21 H Respiratory Pattern Blood Pressure 131/75 H 121/78 H 121/78 H Blood Pressure Mean 93 92 92 Pulse Ox 100 99 99 Oxygen Delivery Method Room Air Room Air Room Air 02/18/23 14:51 02/18/23 14:00 02/18/23 15:00 Temperature 98 F 98 F 98 F Temperature Source Temporal Temporal Temporal Pulse Rate 106 H 106 H 104 H Respiratory Rate 20 H 20 H 20 H Respiratory Pattern Blood Pressure 109/60 109/60 104/58 L Blood Pressure Mean 76 76 73 Pulse Ox 99 99 98 Oxygen Delivery Method Room Air Weight Weight: 168 lb 6.931 oz Body Mass Index (BMI) 30.8 Physical Exam Narrative General: Alert, Oriented x3, Cooperative, diaphoretic HEENT: Atraumatic, PERRLA, EOMI, Normocephalic Oral: Moist Mucosa Neck: Supple, No JVD Lungs: Clear to auscultation, Normal air movement, No rhonchi, No wheeze, No rales Cardiovascular: Tachycardic, Regular Rhythm, Normal S1, Normal S2, No murmurs Abdomen: Soft, Non Tender, Non-Distended, No Hepato-splenomegaly Extremities: No edema, Capillary Refill Less than 3 Seconds, significant axillary pain to palpation on the right with limited upper extremity arm movement due to that pain Skin: No rashes, No breakdown, no obvious signs of infection on her right breastor in her right arm. No signs externally on her axilla other than palpation eliciting pain Musculoskeletal: No Tenderness to Palpation of Joints or Extremities Neurological: Cranial nerves II-XII grossly intact, Motor Exam 5/5 strength throughout, Sensory exam intact to light touch and pain Psych/Mental Status: Normal Affect, Appropriate Results Lab / Micro Data 02/18/23 09:40 02/18/23 09:40 Labs: Laboratory Results - last 24 hr 02/18/23 09:40: WBC 14.0 H, RBC 4.81, Hgb 14.9, Hct 44.3, MCV 92.1, MCH 31.0, MCHC 33.6, RDW Std Deviation 39.6, RDW Coeff of Em 11.6, Plt Count 165, MPV 11.0, Immature Gran % (Auto) 0.700, Neut % (Auto) 91.8 H, Lymph % (Auto) 1.6 L, Childress % (Auto) 5.0, Eos % (Auto) 0.6, Baso % (Auto) 0.3, Absolute Neuts (auto) 12.8 H, Absolute Lymphs (auto) 0.22 L, Nucleated RBC % 0, Sodium 133 L, Potassium 3.4 L, Chloride 98, Carbon Dioxide 26.0, Anion Gap 9, BUN 10, Creatinine 0.97, Est GFR (MDRD) Af Amer 87, Est GFR (MDRD) Non-Af 72, BUN/Creatinine Ratio 10.4, Glucose 122 H, Calcium 9.3, Total Bilirubin 0.90, AST 23, ALT 30, AlkalinePhosphatase 70, Total Protein 8.3 H, Albumin 3.8, Globulin 4.5 H, Albumin/Globulin Ratio 0.8 L, Serum , Qual NEGATIVE 02/18/23 10:10: Lactic Acid 1.8, Miscellaneous Test Cancelled 02/18/23 10:20: Urine Color Yellow, Urine Clarity Sl. Cloudy, Urine pH 5.0, Ur Specific Diamond 1.020, Urine Protein 30 H, Urine Glucose (UA) Normal, Urine Ketones 150 A*, Urine Occult Blood 10 H, Urine Nitrite Negative, Urine Bilirubin1 H, Urine Urobilinogen 1 H, Ur Leukocyte Esterase 500 H, Urine RBC 0-5 SEEN, Urine WBC 25- 50 SEEN, Ur Squamous Epith Cells 5-10 SEEN, Urine Bacteria 1+, Urine Mucus 1+ Micro: Microbiology 02/18/23 09:56 Nasal Secretion SARS-CoV-2 & FLU Antigen (Rapid) - Final Radiology Impression Chest X-Ray 02/18/23 10:30 IMPRESSION: Normal x-ray examination of the chest. Electronically Signed: Bartolo Dominguez MD at 10:45 EDT , Chest CT 02/18/23 11:25 IMPRESSION: Inflammatory changes seen in the right axilla with prominence and enlargement of the right axillary lymph nodes. Inflammatory process should be ruled out. No focal abscess or mass lesion is seen. Electronically Signed: Bartolo Dominguez MD at 12:02 EDT , Assessment & Plan Assessment/Plan (1) Lymphadenitis, acute: PLAN: Plan 1. Lymphadenitis/UTI ? Unclear as to the etiology, there is no surrounding chest wall infection or arm infection ? I do not think that her axillary lymph node is swollen because of her UTI ? Continue with Zosyn ? Blood cultures and urine cultures are pending ? Unable to provide oral antibiotics secondary to her nausea and vomiting ? We will provide pain meds and nausea medications as well as IV fluid DVT: Ambulation Charges/Coding Visit Charges Inpatient E&M: 13919 Init Hosp L2 02/18/23 1541 <Electronically signed by Enoch Casey MD> Cosigner Signature (if applicable): CC: Dr. Enoch Casey MD; No Primary Care Physician~ Signed [facility] Work Phone: 1(358) 156-528108-11-2023 Discharge summary Author Manolo Tolbert [facility] February 18, 2023 2:56pm Note Date/Time February 18, 2023 9: 49am [facility] Medical Records Department [address] [place] [address] Emergency Department Summary 02/18/23 MR#: [id number] Acct: [id number] Name: JAGRUTI GORE Rep #:[id number] : 1990 32 From: Manolo Tolbert MD PCP: Care Physician,No Primary Status :REG ER Location: ED HPI History of Present Illness Chief Complaint: Fever Informant: patient Narrative Narrative: Patient presents with fevers myalgias malaise nausea vomiting and soft bowel movement. Patient states she felt fine a couple days ago. She had pushed a washer and dryer in her basement. She had gone to hurt her right chest wall. But she was not having the other symptoms. She was seen here. She states since leaving [facility] developed some nausea and vomiting although she was nauseated when she was here she had no vomiting. She has been having fevers. She states she kind of aches all over. She feels like she has the flu but is just worse than her normal flu. She still has soreness on the right chest wall. She states is not the actual shoulder joint but it is below that in the axilla on the chest wall side. But no redness swelling or rash there and she denies any rashes anywhere else. She denies any travel out of the area or out of the country. No one elseshe knows of is ill. She has not slight earache on both sides but no significant nasal congestion sore throat or coughing. Although she has nausea vomiting and a soft bowel movement she is not having abdominal pain. She statesshe thinks she had a yeast infection but she took [id number] Monistat and that is gone. She has just a trace amount of dysuria. But no frequency or urgency. PFSH PFSH Home Medications ibuprofen 600 mg tablet 600 mg PO Q6H PRN PRN Mild Pain (1-09/17) #30 tabs 01/25/19 [Rx Last Taken Unknown] Allergy/AdvReac Type Severity Reaction Status Date / Time No Known Allergies Allergy Verified 02/18/23 09:04 Social History Smoking Status: Never smoker ROS ROS ED ROS Narrative A complete review of systems was performed and is negative except as documented in the history of present illness. Some specific details below. Constitutional: Fevers and chills. Malaise. Myalgias. See history of present illness. EYE: No visual complaints or pain. No color change. ENT: No difficulty swallowing. She does feel as though her face is a little puffy. No pain of throat. She does complain of some bilateral ear pressure. CV: No chest pain or palpitations. Respiratory: No dyspnea. No hemoptysis. No difficulty taking breaths. Not coughing. GI: Please see history of present illness. : No frequency or hematuria. She does have very mild dysuria that is better after treatment for yeast. Musculoskeletal: See history of present illness. Skin: No rash now or at any time during this illness or recently. Nondiaphoretic. Neuro: No weakness or numbness. Endocrine: No polyuria or polydipsia. EXAM Physical Exam Narrative Exam Narrative: CONSTITUTIONAL: Patient is nontoxic in appearance. The patient looks comfortable. HEENT: No notable trauma. Mucous membranes do look dry. No sinus tenderness. No indication of pain with swallowing. Tympanic membranes are both actually very clear and not at all red. No notable fluid. EYES: No conjunctival injection. No proptosis. No pain with range of motion. No photophobia. CARDIOVASCULAR: Tachycardic rate. Regular rhythm. No notable murmur. No JVD. RESPIRATORY: No respiratory distress. Breathing is unlabored. No wheezes. No rhonchi. No rales. No pain with a deep breath. She does have some right chest wall tenderness in the mid and posterior axillary line. But there is no lymph nodes. There is no crepitance. There is no redness or warmth. There is no asymmetry. I see no skin changes or vesicles anywhere in this area. It is sorewith motion or palpation but there is no visible or palpable difference. Her discomfort is clearly in the axillary chest wall not in the shoulder joint itself. GASTROINTESTINAL: Not distended. Bowel sounds are normal. No tenderness. No guarding. No rebound. No palpable mass. No bruit. GENITOURINARY: No tenderness over the bladder. No CVA tenderness. MUSCULOSKELETAL: Atraumatic. No peripheral edema. No cord. No tenderness along the deep venous system. No asymmetry. No swollen joints. NEUROLOGICAL: Patient is alert and appropriate. No focal deficit noted. SKIN: No noted rashes. No diaphoresis. PSYCHIATRIC: Patient is calm. Mood is appropriate. Const Vital Signs: 02/18/23 09:02 02/18/23 09:27 02/18/23 09:27 Temperature 102.3 F H 102.5 F H 102.5 F H Temperature Source Temporal Oral Oral Pulse Rate 132 H 125 H 125 H Respiratory Rate 18 16 16 Respiratory Pattern Blood Pressure 113/77 132/81 H 132/81 H Blood Pressure Mean 89 98 98 Pulse Ox 100 100 100 Oxygen Delivery Method Room Air Room Air Room Air 02/18/23 09:27 02/18/23 10:20 02/18/23 11:11 Temperature 102.5 F H 100.7 F H Temperature Source Oral Oral Pulse Rate 130 H 114 H Respiratory Rate 18 15 Respiratory Pattern Normal Blood Pressure 154/83 H 131/75 H Blood Pressure Mean 106 93 Pulse Ox 98 100 Oxygen Delivery Method Room Air Room Air 02/18/23 11:11 02/18/23 12:07 02/18/23 12:07 Temperature 100.7 F H 100.9 F H 100.9 F H Temperature Source Oral Oral Oral Pulse Rate 114 H 119 H 115 H Respiratory Rate 15 19 H 21 H Respiratory Pattern Blood Pressure 131/75 H 121/78 H 121/78 H Blood Pressure Mean 93 92 92 Pulse Ox 100 99 99 Oxygen Delivery Method Room Air Room Air Room Air MDM MDM MDM Narrative Medical decision making narrative: Patient's labs show a slight rise in her white count of 14,000. Hemoglobin and platelets are normal. Patient's electrolytes show no marked abnormalities. Glucose is minimally up at122. Patient's LFTs show no marked abnormalities. Patient's lactate is within normal at 1.8. Knoop Patient's urine was a little cloudy. She has some leukocyte esterase like last time. She had more so time. But this was not a markedly abnormal urinalysis for the symptoms white count fever that she has. My independent interpretation of her chest x-ray showed no acute process. Because she is having pain on the right side and I cannot say that her UTI findings completely explain her symptoms, we did do CT scan of her chest. This does show actually some inflammatory changes in the area of pain in her right axilla. But there is no abscess. This brings into question is this an early cellulitis that were not seeing externally. This is not matching an acute necrotizing fasciitis because she is going on her third day of symptoms. Although she has a fever and tachycardia her heart rate is coming down as she isgiven fluids and the fever comes down. She is not hypotensive. She does not have a lactic acidosis. However, with these symptoms, suspected infection and nausea and vomiting I do not think she can go home. She will not be able to tolerate the oral antibiotics. For this reason I think admission is appropriate. My independent her potation of her CT scan of the chest showed some inflammatorychanges in the right axilla in the area of her pain but I do not see an abscess. We were trying to get the final result. This ended up taking some time. The results would not show on our computer. Although the images appeared to have been read at 12:02 PM we were not able to get these sent to us on paper until 1411. At that point they also now appeared on our computer. I discussed the case with surgery, Dr. Ellis as well as hospitalist. Lab Data Attestation: I reviewed the patient's lab results. Labs: Laboratory Results - last 24 hr 02/18/23 02/18/23 02/18/23 09:40 10:10 10:20 WBC 14.0 H RBC 4.81 Hgb 14.9 Hct 44.3 MCV 92.1 MCH 31.0 MCHC 33.6 RDW Std Deviation 39.6 RDW Coeff of Em 11.6 Plt Count 165 MPV 11.0 Immature Gran % (Auto) 0.700 Neut % (Auto) 91.8 H Lymph % (Auto) 1.6 L Childress % (Auto) 5.0 Eos % (Auto) 0.6 Baso % (Auto) 0.3 Absolute Neuts (auto) 12.8 H Absolute Lymphs (auto) 0.22 L Nucleated RBC % 0 Sodium 133 L Potassium 3.4 L Chloride 98 Carbon Dioxide 26.0 Anion Gap 9 BUN 10 Creatinine 0.97 Est GFR (MDRD) Af Amer 87 Est GFR (MDRD) Non-Af 72 BUN/Creatinine Ratio 10.4 Glucose 122 H Lactic Acid 1.8 Calcium 9.3 Total Bilirubin 0.90 AST 23 ALT 30 Alkaline Phosphatase 70 Total Protein 8.3 H Albumin 3.8 Globulin 4.5 H Albumin/Globulin Ratio 0.8 L Serum , Qual NEGATIVE Urine Color Yellow Urine Clarity Sl. Cloudy Urine pH 5.0 Ur Specific Diamond 1.020 Urine Protein 30 H Urine Glucose (UA) Normal Urine Ketones 150 A* Urine Occult Blood 10 H Urine Nitrite Negative Urine Bilirubin 1 H Urine Urobilinogen 1 H Ur Leukocyte Esterase 500 H Urine RBC 0-5 SEEN Urine WBC 25-50 SEEN Ur Squamous Epith Cells 5-10 SEEN Urine Bacteria 1+ Urine Mucus 1+ Miscellaneous Test Cancelled Radiography Diagnostic Testing: Clinical Impression(s) from Imaging Studies Chest X-Ray 02/18/23 10:30 IMPRESSION: Normal x-ray examination of the chest. Electronically Signed: Bartolo Dominguez MD at 10:45 EDT , Chest CT 02/18/23 11:25 IMPRESSION: Inflammatory changes seen in the right axilla with prominence and enlargement of the right axillary lymph nodes. Inflammatory process should be ruled out. No focal abscess or mass lesion is seen. Electronically Signed: Bartolo Dominguez MD at 12:02 EDT , EKG Initial EKG: Comments: Independent interpretation the patient's EKG done for tachycardia shows a sinus rhythm with tachycardic rate at 131. No ventricular ectopy. Nonspecific ST and T wave changes but no sign of acute ST elevation or depression consistent with infarct or ischemia. [place] interval, QRS duration and QTc are normal. Management Discussion w/another healthcare provider: Hospitalist and Coordinator Of Genetic Services Discharge Plan Triage Chief Complaint: Fever ED Provider: Manolo Tolbert Dx/Rx/DC Orders Clinical Impression: Cellulitis of chest wall, Leukocytosis, Failure of outpatient treatment, Nauseaand vomiting Prescriptions: No Action ibuprofen 600 MG tablet 600 mg PO Q6H PRN PRN (Reason: Mild Pain (1-09/17)) Qty: 30 0RF Hold Instructions: Order Completed Primary Care Provider: Care Physician,No Primary Referrals: Care Physician,No Primary [Primary Care Provider] - Disposition Disposition: [facility] What to do if you have Problems For any increased pain, shortness of breath, bleeding, nausea or vomiting, chestpain, or any unexpected problems, contact your Primary Care Provider. Call [facility] ([phone]) or report to the closest Emergency Room. Call 911 if necessary. 02/18/23 1456 <Electronically signed by Manolo Tolbert MD> Cosigner Signature (if applicable): CC: No Primary Care Physician ~ Signed [facility] Work Phone: 1(389) 989-436107-12-2023 History of Present illness Narrative* Nikkie Newman APRN.KNIFE FINISHER - 01/19/2023 11:27 AM EDT CC: Patient presents with: Sore Throat: Congestion, [place]IS[place], cough x 2 weeks HPI: Jagruti Gore is a 32 year old female who presents to the office with complaint of head congestion and cough, nonproductive for 2 weeks. Symptoms are worsening Associated symptoms includes nasal congestion and facial pain/pressure. Denies fever, nausea, vomiting , and diarrhea. Treatments tried include nothing so far. with no relief of symptoms. Sick contacts: unknown. History of asthma, frequent episodes of bronchitis, chronic bronchitis, bronchiectasis or COPD: No Smoker: No Seasonal/environmental allergies: No The ROS is otherwise negative. The patient's pmh, medications, allergies, and past visits are reviewed. PHYSICAL EXAM: BP 122/78 Pulse 91 Temp 37.3 C (99.1 F) Resp 21 Wt 75.5 kg (166 lb 6.4 oz) LMP 03/29/2021 SpO2 98% BMI 29.48 kg/m General appearance: alert, cooperative, pleasant, in no acute distress Head: Normocephalic Eyes: EOM's intact, conjunctiva pink and moist, no icterus, sclera white, non-injected Ears: Right ear: External ear/canal- Normal, TM - clear with good landmarks. Left ear: External ear/canal- Normal, TM - clear with good landmarks Oropharynx:mild erythema, without exudates present Heart: Negative. RRR without obvious murmur, gallop, or rubs. No ectopy. Lungs: clear to auscultation, without rales or wheeze, good air exchange PAST MEDICAL HISTORY Diagnosis Date Allergy, unspecified not elsewhere classified environmental Hyperhydrosis disorder Miscarriage 08/2014 PAST SURGICAL HISTORY Procedure Laterality Date DELIVERY ONLY 04/23/2016 , low transverse DELIVERY ONLY 01/23/2019 RC/S low transverse CORRECTION OF BUNION Right Right foot PAST SURGICAL HISTORY OF nose and upper lip surgery from a dog bite. REM LESION NEC,HND,SCAL 0.6-1.0CM 05/20/2007 Exc. right inferior areolar breast lesion ALLERGIES Seasonal Allergies MEDICATIONS albuterol HFA (PROVENTIL HFA, VENTOLIN HFA) 90 mcg/actuation inhaler Inhale 2 Puffs as instructed every 4 hours as needed for wheezing/shortness of breath. (Patient not taking: Reported on 07/09/2022) benzonatate (TESSALON PERLES) 100 mg capsule Take 1-2 capsules by mouth three times daily as needed. (Patient not taking: Reported on 07/09/2022) FAMILY HISTORY Problem Relation Age of Onset No Known Problems Mother Allergies Father other (Hepatitis C) Father other (Hep C) Brother Half-Brother No Known Problems Maternal Grandmother other (ALS) Maternal Grandfather Thyroid Paternal Grandmother other (Crohn's Disease) Paternal Grandmother No Known Problems Paternal Grandfather Diabetes Other maternal great grandparents and great aunts and uncles. Heart Other maternal great grandfathers. Breast Cancer Other Maternal Great Grandmother other (undescended testicle, stent in left eye for blocked tear duct) Son Social History Tobacco Use Smoking status: Never Smokeless tobacco: Never Vaping Use Vaping Use: Never used Substance Use Topics Alcohol use: No Drug use: No ASSESSMENT/PLAN: 1. Sore throat - ICD9: 462, ICD10: J02.9 (primary diagnosis) - STREP A MOLECULAR (POC) - neg 2. Rhinosinusitis - ICD9: 473.9, ICD10: J31.0, J32.9 - AMOXICILLIN 875 MG-POTASSIUM CLAVULANATE 125 MG TABLET Prescription instructions reviewed with patient as applicable. Potential red flag symptoms discussed with the patient. Reviewed appropriate action plan to take if red flag symptoms occur. Patient agreeable to treatment plan. Nikkie Newman APRN.CNP [facility] Instructions* Patient Instructions* Nikkie Newman APRN.CNP - 01/10/2023 10:42 AM EDT Images from the original note were not included. Sore Throat (Pharyngitis) What is a sore throat? When your child complains that his throat is sore, it is usually a symptom of an illness, such as acold. When you look at the throat with a light, it will be bright red. Children too young to talk may have a sore throat if they refuse to eat or begin to cry during feedings. What is the cause? Most sore throats are caused by viruses and are part of a cold. About 10% of sore throats are caused by strep bacteria. Tonsillitis (temporary swelling and redness of the tonsils) usually occurs with any throat infection, viral or bacterial. Swollen tonsils do not have any special meaning. Children who sleep with their mouths open often wake up in the morning with a dry mouth and sore throat. It feels better within an hour of having something to drink. Use a humidifier to help prevent this problem. Children with a postnasal drip from draining sinuses often have a sore throat from the secretions or from clearing their throat often. How long does it last? Sore throats caused by viral illnesses usually last 4 or 5 days. A sore throat caused by Strep will start feeling better soon after being treated with penicillin orother antibiotics. After a child has been taking medicine for strep for 24 hours, strep is no longer contagious. Your child can then return to day care or school if his fever is gone and he's feelingbetter. Your child must take all of the antibiotic even if he is feeling better. If your child doesn't take all of the medicine, the sore throat could come back. Why do a throat culture? A throat culture or rapid strep test is the only way to know whether a sore throat is caused by strep bacteria or a virus. Without treatment, a strep throat has a small risk for acute rheumatic fever. Rheumatic fever is a complication of strep infections that can lead to permanent damage to the valves of the heart. The throat culture is not urgent, however, since treating a strep infection within7 days of when it begins can prevent rheumatic fever. A throat culture is not necessary if your child's sore throat is part of a cold AND the main symptom is croup, hoarseness, or a cough, unless the sore throat lasts more than 5 days. Rapid strep tests are helpful only when their results are positive. If they are negative, a throat culture should be done to picker box operator the 10% of strep infections that the rapid tests miss. Avoid rapidstrep tests performed in shopping malls or at home because they tend to be inaccurate. How can I take care of my child? Throat pain relief Children over age 1 can sip warm chicken broth or apple juice. Children over age4 can suck on hard candy (butterscotch seems to be a soothing flavor) or lollipops. Children over 8years old can also gargle with warm salt water (1/4 teaspoon of salt per glass). Diet A sore throat can make some foods hard to swallow. Provide your child with a diet of soft foods for a few days if he prefers it. Cold drinks and milkshakes are especially good. Do not give your child salty or spicy foods or citrus fruits. Fever and pain relief Give your child acetaminophen (Tylenol) or ibuprofen (Advil) for the sore throat or for a fever over 102 F (39 C). Common mistakes in treating sore throat Avoid expensive throat sprays or throat lozenges. Not only are they no more effective than hard candy, but many also contain an ingredient (benzocaine) that may cause an allergic reaction. Do not use leftover antibiotics from siblings or friends. Leftover antibiotics should be thrown outbecause they deteriorate faster than other drugs. Also, antibiotics help only strep throats. They have no effect on viruses, and they can cause harm. They also make it difficult to find out what is wrong if your child becomes sicker. Don't allow anyone to smoke around children. When should I call my child's healthcare provider? Call IMMEDIATELY if: Your child is drooling or having great difficulty swallowing. Your child is having trouble breathing. Your child is acting very sick. Call during office hours: To make an appointment for a throat culture for any other child who has had a sore throat for more than 48 hours (especially if the child also has a fever without any symptoms of a cold). Published by [employer] This content is reviewed periodically and is subject to change as new health information becomes available. The information is intended to inform and educate and is not a replacement for medical evaluation, advice, diagnosis or treatment by a healthcare professional. Written by Dhiraj Green M.D., author of Your Child's Health, [employer]. Copyright 2007 [employer] and/or one of its subsidiaries. All Rights Reserved. Copyright [employer] 2008 Pediatric Advisor documented in this encounterOhio[facility] History of Present illness Narrative* Nikkie Newman APRN.KNIFE FINISHER - 01/10/2023 10:31 AM EDT CC: Patient presents with: Sore Throat: headache and cough x 4 days HPI: Jagruti Gore is a 32 year old female who presents to the office with complaint of cough, nonproductive and sore throat for a few days. Symptoms are staying the same. Associated symptoms includes headache. Denies wheezing, dyspnea, nausea, vomiting , and diarrhea. Treatments tried include nothing so far. with no relief of symptoms. Sick contacts: unknown. History of asthma, frequent episodes of bronchitis, chronic bronchitis, bronchiectasis or COPD: No Smoker: No Seasonal/environmental allergies: No The ROS is otherwise negative. The patient's pmh, medications, allergies, and past visits are reviewed. PHYSICAL EXAM: BP 128/72 Pulse 94 Temp 36.5 C (97.7 F) Resp 16 Wt 74.4 kg (164 lb) LMP 03/29/2021 BgS082% BMI 29.05 kg/m General appearance: alert, cooperative, pleasant, in no acute distress Head: Normocephalic Eyes: EOM's intact, conjunctiva pink and moist, no icterus, sclera white, non-injected Ears: Right ear: External ear/canal- Normal, TM - clear with good landmarks. Left ear: External ear/canal- Normal, TM - clear with good landmarks Oropharynx:moderate erythema, without exudates present Heart: Negative. RRR without obvious murmur, gallop, or rubs. No ectopy. Lungs: clear to auscultation, without rales or wheeze, good air exchange PAST MEDICAL HISTORY Diagnosis Date Allergy, unspecified not elsewhere classified environmental Hyperhydrosis disorder Miscarriage 08/2014 PAST SURGICAL HISTORY Procedure Laterality Date DELIVERY ONLY 04/23/2016 , low transverse DELIVERY ONLY 01/23/2019 RC/S low transverse CORRECTION OF BUNION Right Right foot PAST SURGICAL HISTORY OF nose and upper lip surgery from a dog bite. REM LESION NEC,HND,SCAL 0.6-1.0CM 05/20/2007 Exc. right inferior areolar breast lesion ALLERGIES Environmenta [Other] MEDICATIONS albuterol HFA (PROVENTIL HFA, VENTOLIN HFA) 90 mcg/actuation inhaler Inhale 2 Puffs as instructed every 4 hours as needed for wheezing/shortness of breath. (Patient not taking: Reported on 07/09/2022) benzonatate (TESSALON PERLES) 100 mg capsule Take 1-2 capsules by mouth three times daily as needed. (Patient not taking: Reported on 07/09/2022) FAMILY HISTORY Problem Relation Age of Onset No Known Problems Mother Allergies Father other (Hepatitis C) Father other (Hep C) Brother Half-Brother No Known Problems Maternal Grandmother other (ALS) Maternal Grandfather Thyroid Paternal Grandmother other (Crohn's Disease) Paternal Grandmother No Known Problems Paternal Grandfather Diabetes Other maternal great grandparents and great aunts and uncles. Heart Other maternal great grandfathers. Breast Cancer Other Maternal Great Grandmother other (undescended testicle, stent in left eye for blocked tear duct) Son Social History Tobacco Use Smoking status: Never Smokeless tobacco: Never Vaping Use Vaping Use: Never used Substance Use Topics Alcohol use: No Drug use: No ASSESSMENT/PLAN: 1. Sore throat - ICD9: 462, ICD10: J02.9 - STREP A MOLECULAR (POC) - neg Potential red flag symptoms discussed with the patient. Reviewed appropriate action plan to take ifred flag symptoms occur. Patient agreeable to treatment plan. Nikkie Newman APRN.BROOK documented in this encounterOhio[facility]12-30-2022 History of Present illness Narrative* Yony Burns APRN.CNP - 07/09/2022 9:21 AM EST Subjective HPI Nontoxic-appearing female presents urgent care chief complaint sinus infection. Duration of symptoms 8 days. Associated symptoms sinus pressure and drainage. States initially she did have body aches chills and felt like a fever with a cough. The symptoms have since subsided. Presents today with increasing sinus pressure. Has had sinus infections in the past this feels similar. Has used some OTC medications this is helped. Sick contacts son was diagnosed with influenza 2 weeks ago. has similar signs symptoms as son. Denies any fevers productive cough chest pain shortness of breath pleuritic pain hemoptysis nausea vomiting abdominal pain or change in bowel or bladder habits. Past medical history prescription medication use allergies reviewed. Denies chance of is not breast-feeding. .Patient presents with: Cough: Cough, sinus and head pressure x 1 week PAST MEDICAL HISTORY Diagnosis Date Allergy, unspecified not elsewhere classified environmental Hyperhydrosis disorder Miscarriage 08/2014 PAST SURGICAL HISTORY Procedure Laterality Date DELIVERY ONLY 04/23/2016 , low transverse DELIVERY ONLY 01/23/2019 RC/S low transverse CORRECTION OF BUNION Right Right foot PAST SURGICAL HISTORY OF nose and upper lip surgery from a dog bite. REM LESION NEC,HND,SCAL 0.6-1.0CM 05/20/2007 Exc. right inferior areolar breast lesion ALLERGIES Environmenta [Other] MEDICATIONS albuterol HFA (PROVENTIL HFA, VENTOLIN HFA) 90 mcg/actuation inhaler Inhale 2 Puffs as instructed every 4 hours as needed for wheezing/shortness of breath. (Patient not taking: Reported on 07/09/2022) benzonatate (TESSALON PERLES) 100 mg capsule Take 1-2 capsules by mouth three times daily as needed. (Patient not taking: Reported on 07/09/2022) FAMILY HISTORY Problem Relation Age of Onset No Known Problems Mother Allergies Father other (Hepatitis C) Father other (Hep C) Brother Half-Brother No Known Problems Maternal Grandmother other (ALS) Maternal Grandfather Thyroid Paternal Grandmother other (Crohn's Disease) Paternal Grandmother No Known Problems Paternal Grandfather Diabetes Other maternal great grandparents and great aunts and uncles. Heart Other maternal great grandfathers. Breast Cancer Other Maternal Great Grandmother other (undescended testicle, stent in left eye for blocked tear duct) Son Social History Tobacco Use Smoking status: Never Smokeless tobacco: Never Vaping Use Vaping Use: Never used Substance Use Topics Alcohol use: No Drug use: No BP 136/84 Pulse 104 Temp 37.4 C (99.3 F) (Tympanic) Resp 16 Wt 70.4 kg (155 lb 3.2 oz) LMP 03/29/2021 SpO2 96% BMI 27.49 kg/m Hr 86 Review of Systems Constitutional: Negative for chills, fever and malaise/fatigue. HENT: Positive for congestion and sinus pain. Negative for ear discharge, ear pain and sore throat. Eyes: Negative for blurred vision, pain, discharge and redness. Respiratory: Negative for cough, hemoptysis, sputum production, shortness of breath, wheezing and stridor. Cardiovascular: Negative for chest pain. Gastrointestinal: Negative for abdominal pain, diarrhea, nausea and vomiting. Musculoskeletal: Negative for myalgias. Skin: Negative for itching and rash. Neurological: Positive for headaches. Negative for dizziness. Objective Physical Exam Constitutional: General: She is not in acute distress. Appearance: She is not diaphoretic. HENT: Head: Normocephalic. Jaw: No trismus, tenderness or swelling. Right Ear: Tympanic membrane, ear canal and external ear normal. Left Ear: Tympanic membrane, ear canal and external ear normal. Nose: Right Sinus: Maxillary sinus tenderness and frontal sinus tenderness present. Mouth/Throat: Mouth: Mucous membranes are moist. Pharynx: Oropharynx is clear. Uvula midline. Posterior oropharyngeal erythema present. No pharyngeal swelling, oropharyngeal exudate or uvula swelling. Tonsils: No tonsillar exudate or tonsillar abscesses. Eyes: Conjunctiva/sclera: Conjunctivae normal. Pupils: Pupils are equal, round, and reactive to light. Cardiovascular: Rate and Rhythm: Normal rate and regular rhythm. Heart sounds: Normal heart sounds. Pulmonary: Effort: Pulmonary effort is normal. No tachypnea, accessory muscle usage or respiratory distress. Breath sounds: Normal breath sounds. No stridor. No wheezing, rhonchi or rales. Abdominal: General: There is no distension. Palpations: Abdomen is soft. Tenderness: There is no abdominal tenderness. There is no guarding or rebound. Musculoskeletal: Cervical back: Normal range of motion and neck supple. No rigidity or tenderness. Lymphadenopathy: Cervical: No cervical adenopathy. Skin: General: Skin is warm and dry. Neurological: Mental Status: She is alert and oriented to person, place, and time. ASSESSMENT/PLAN: 1. Bacterial sinusitis - ICD9: 473.9, 041.9, ICD10: J32.9, B96.89 Suspicious secondary bacterial infection after influenza infection. Patient diagnosed with bacterial sinusitis. Will be placed on Augmentin. Patient was educated on supportive therapies. Patient willfollow up with primary care provider as needed. Patient was instructed to immediately proceed to emergency room for any new, worsening, or symptoms lasting longer than anticipated. The patient's clinical presentation is otherwise unremarkable at this time. Based on exam and clinical finding, the patient is stable for discharge. Plan of care was discussed with patient. Patient verbalizes understanding and agrees to plan of care. This note was generated using [employer]™ software. It may contain errors in wording, punctuation, or spelling. 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 success rate by calculator = 77%. Halle Webb APRN.CNM 06/07/2018Pt had a previous C section. She desires a repeat C section by Dr Conrad. Gaston on C Section and ordered. 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 success rate by calculator = 77%. Halle Webb APRN.CNM 06/07/2018Pt had a previous C section. She desires a repeat C section by Dr Conrad. ALEXISs on C Section and ordered. 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 success rate by calculator = 77%. Halle Webb APRN.CNM 06/07/2018Pt had a previous C section. She desires a repeat C section by Dr Conrad. GALE's on C Section and ordered. 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 success rate by calculator = 77%. Halleyamile Webb APRN.CNM 06/07/2018Pt had a previous C section. She desires a repeat C section by Dr Conrad. GALE's on C Section and ordered. TKRN Breech presentation with problem 03/26/2016 06/04/2016 GBS bacteriuria 11/03/2015 06/04/2016 Encounter for supervision of normal in third trimester 09/08/2015 06/04/2016 Threatened 08/15/2014 06/04/20 16 Other specified congenital anomaly of skin 05/02/2007 11/20/2009 documented as of this encounter (statuses as of 04/17/2023) [facility] Hospital[facility] summary Author Lionel Barrios [facility] February 17, 2023 12:06am Note Date/Time February 17, 2023 12 :06am [facility] Medical Records Department [address] [place] [address] Emergency Department Summary 02/17/23 MR#: [id number] Acct: [id number] Name: JAGRUTI GORE Rep #:[id number] : 1990 32 From: Lionel Barrios DO PCP: Dr. Alana Rodriguez DO Status:REG ER Location: ED HPI History of Present Illness Chief Complaint: Upper Extremity Injury Narrative Narrative: 32-year-old female presenting with right shoulder pain. She states that she moved a washer despite trimming it a little bit the other day and did not remember hurting herself but now complains of pain in the right anterior shoulder and the axilla. She states that her did hurts to put deodorant on. She does have some pain with range of motion but she is able to range it some. Patient denies any direct trauma. She states she is just felt off for a couple of days. She feels like she has a fever but has not checked her temperature. She does state that she had some dysuria and has been treating herself with [id number] medicine for which she thought was a yeast infection. She is vomiting or nausea. She denies cough or shortness of breath. She denies abdominal pain. She has no diarrhea or constipation. No vaginal complaints. PFSH PFSH Medical History no medical history Home Medications ibuprofen 600 mg tablet 600 mg PO Q6H PRN PRN Mild Pain (-09/17) #30 tabs 01/25/19 [Rx Last Taken Unknown] Allergy/AdvReac Type Severity Reaction Status Date / Time No Known Allergies Allergy Verified 02/16/23 22:08 Social History Smoking Status: Never smoker ROS ROS ED Constitutional Constitutional ED: Denies chills, fever(s) or sweats Eyes Eyes: Denies blurry vision or change in vision ENT ENT ED: Denies ear pain or sore throat Cardiovascular Cardiovascular: Denies chest pain, palpitations or racing heartbeat Respiratory/Chest Respiratory/Chest: Reports other Details: Right axillary pain ; Denies cough, dyspnea or sputum Gastrointestinal Gastrointestinal: Denies abdominal pain, constipation, diarrhea, nausea or vomiting Genitourinary Genitourinary ED: Denies dysuria, hematuria or urinary frequency Musculoskeletal Musculoskeletal: Reports other Details: Right shoulder pain ; Denies arthralgias, myalgias or neck pain Integumentary Denies abscess, Abrasions or rash Neurologic Neurologic: Denies headache(s), paresthesias or weakness Psychiatric Psychiatric: Denies anxiety, depression, suicidal ideation or suicidal thoughts Endocrine Endocrinology: Denies polydipsia or polyuria EXAM Physical Exam Const Vital Signs: 02/16/23 22:05 02/16/23 22:53 02/16/23 23:22 Temperature 99.0 F Temperature Source Temporal Pulse Rate 120 H 65 Respiratory Rate 18 17 Respiratory Pattern Normal Blood Pressure 149/90 H 121/55 H Blood Pressure Mean 109 77 Pulse Ox 98 99 Oxygen Delivery Method Room Air Room Air Positive well nourished General Appearance ED: NAD HEENT Reports moist mucous membranes normocephalic and atraumatic Eyes PERRL and EOMs intact bilaterally Chest Wall inspection of chest normal Chest Narrative: There is pain in the right axilla. There is no masses palpated. No lymphadenopathy. Patient has some limitation of range of motion without evidence of a septic arthrosis. No rashes. Resp normal respiratory effort and clear to auscultation bilaterally Auscultation: Negative for rales, rhonchi or wheezes Cardio regular rate and regular rhythm GI non-tender Back/Spine no CVA tenderness Neuro oriented x3 and CN's II-XII intact bilaterally Sensorium / Orientation: alert Motor Exam: strength 5/5 throughout Psych mental status grossly normal Skin Lesions: no lesions Rashes: no rashes MDM MDM MDM Narrative Medical decision making narrative: Patient initially complaining of right axillary pain. She thought she injured herself moving a washer. She does have some pain with range of motion but it isnot limited to suggest septic joint. She has felt like she is been a little offthis week. She has not had a fever that she knows of but feels as if she is sick. She is complaining of dysuria. I think CBC to assess white blood cell count, hemoglobin, platelets. I obtained a CMP to assess her liver function, renal function, electrolytes. Urinalysis to assess for UTI. COVID and flu werealso tested. Patient given IV Toradol. CBC and CMP relatively unremarkable. Urinalysis negative for infection. COVID and flu are negative. X-rays of the chest and the right shoulder on my interpretation show nothing acute. Radiologist services and agrees. Impression: 1. Right shoulder pain 2. Right axillary pain 3. Generalized Lab Data Attestation: I reviewed the patient's lab results. Labs: Laboratory Results - last 24 hr 02/16/23 02/16/23 23:11 23:25 WBC 11.4 H RBC 4.34 Hgb 13.2 Hct 39.7 MCV 91.5 MCH 30.4 MCHC 33.2 RDW Std Deviation 38.5 RDW Coeff of Em 11.3 L Plt Count 187 MPV 9.8 Immature Gran % (Auto) 0.400 Neut % (Auto) 90.2 H Lymph % (Auto) 4.0 L Childress % (Auto) 5.2 Eos % (Auto) 0.0 Baso % (Auto) 0.2 Absolute Neuts (auto) 10.3 H Absolute Lymphs (auto) 0.46 L Nucleated RBC % 0 Sodium 138 Potassium 3.5 Chloride 103 Carbon Dioxide 26.0 Anion Gap 9 BUN 11 Creatinine 0.94 Estim Creat Clear Calc 69.21 Est GFR (MDRD) Af Amer 90 Est GFR (MDRD) Non-Af 74 BUN/Creatinine Ratio 11.7 Glucose 129 H Calcium 9.4 Total Bilirubin 0.30 AST 11 L ALT 21 Alkaline Phosphatase 59 Total Protein 7.9 Albumin 4.2 Globulin 3.7 Albumin/Globulin Ratio 1.1 Urine Color Yellow Urine Clarity Clear Urine pH 5.0 Ur Specific Diamond 1.020 Urine Protein Negative Urine Glucose (UA) Normal Urine Ketones 15 H Urine Occult Blood Negative Urine Nitrite Negative Urine Bilirubin Negative Urine Urobilinogen Normal Ur Leukocyte Esterase 500 H Urine RBC 0 SEEN Urine WBC 0-5 SEEN Ur Squamous Epith Cells 5-10 SEEN Urine Bacteria 0 SEEN Urine Mucus 0 SEEN Radiography Diagnostic Testing: Clinical Impression(s) from Imaging Studies Chest X-Ray 02/16/23 23:28 IMPRESSION: No evidence of cardiopulmonary disease. Electronically Signed: Yony Jones DO at 23:41 EDT Reading Location ID and State: [facility] / MD Tel , Service support , Shoulder X-Ray 02/16/23 23:28 IMPRESSION: Unremarkable views of the right shoulder. Electronically Signed: Yony Jones DO at 23:41 EDT , Discharge Plan Triage Chief Complaint: Upper Extremity Injury ED Provider: Lionel Barrios Dx/Rx/DC Orders Prescriptions: No Action ibuprofen 600 MG tablet 600 mg PO Q6H PRN PRN (Reason: Mild Pain (1-09/17)) Qty: 30 0RF Primary Care Provider: Alana Rodriguez Referrals: Alana Rodriguez DO [Primary Care Provider] - What to do if you have Problems For any increased pain, shortness of breath, bleeding, nausea or vomiting, chestpain, or any unexpected problems, contact your Primary Care Provider. Call Fixed - Parking Tickets Registry ([phone]) or report to the closest Emergency Room. Call 911 if necessary. 02/17/23 0006 <Electronically signed by Lionel Barrios DO> Cosigner Signature (if applicable): CC: Dr. Alana Rodriguez DO ~ Signed [facility] Work Phone: Discharge summary Author Ronal Trent [facility] February 20, 2023 9:56am Note Date/Time February 20, 2023 9: 54am [facility] Medical Records Department [address] [place] [address] Instructions for Home/Discharge Instructions 02/20/23 0953 MR#: [id number] Acct: [id number] Name: GORESONGJAGRUTI JO Rep #:[id number] : 1990 32 From: Ronal stanford DO PCP: Care Physician,No Primary Status :ADM IN Discharge Instructions Diet Discharge Diet: No restrictions Activity Discharge Activity: Return to Normal Activity Weight Bearing Status: Full weight bearing Discharge Plan Admission Admit Date/Time: 02/18/23 15:28 Primary Reason for Your Visit: axillary lymphadenitis Attending Provider: Ronal Trent Primary Care Provider: Care Physician,No Primary Consulting Providers: Enoch Casey Instructions Additional Instructions / Restrictions: Please establish with a PCP as we discussed. Complete a 7-day course of Omnicef, stop date 02/24. Use Tylenol and/or ibuprofen for symptomatic pain relief. Discharge Orders/Prescriptions Prescriptions: New cefdinir 300 mg Capsule 300 mg PO Q12 5 Days Qty: 9 0RF Discontinued ibuprofen 600 MG tablet 600 mg PO Q6H PRN PRN (Reason: Mild Pain (-09/17)) Qty: 30 0RF Hold Instructions: Order Completed Referrals / Follow Up: Care Physician,No Primary [Primary Care Provider] - Disposition Disposition (needs filled in before D/C Order can be placed): Home, Self Care 02/20/23 0956<Electronically signed by Ronal Trent DO>Ronal Trent DO CC: Dr. Enoch Casey MD; No Primary Care Physician ~ Signed [facility] Work Phone: Evaluation note* Diagnosis Bacterial sinusitis- Primary Unspecified sinusitis (chronic) documented in this encounter [facility] note* Diagnosis Sore throat- Primary Acute pharyngitis documented in this encounter [facility] note* Diagnosis Sore throat- Primary Acute pharyngitis Rhinosinusitis Unspecified sinusitis (chronic) documented in this encounter [facility] noteNo assessment information availableWThe [facility] Work Phone: Evaluation note* Diagnosis Onset Date Resolution Status Cellulitis of chest wall acu te Failure of outpatient treatment acute Leukocytosis acute Lymphadenitis, acute acute Nausea and vomiting acute [facility] Work Phone: Evaluation note* Diagnosis Sore throat- Primary Acute pharyngitis Viral illness Unspecified viral infection, in conditions classified elsewhere and of unspecified site documented in this encounter [facility] note* Diagnosis Eustachian tube dysfunction, bilateral- Primary documented in this encounter [facility] Chief Complaint and Reason for Visit Chief Complaint ARM PAIN Chief Complaint ARM PAIN CELLULITIS, NAUSEA VOMITING, LEUKOCYTOSIS, FEVER CELLULITIS, NAUSEA VOMITING, LEUKOCYTOSIS, FEVER CELLULITIS, NAUSEA VOMITING, LEUKOCYTOSIS, FEVER Reason for Visit Cellulitis of chest wall Failure of outpatient treatment Leukocytosis Lymphadenitis, acute Nausea and vomiting Advance Directives No Advanced Directives Records Found Advance Directive Response Recorded Date/ Time Living Will No February 16, 2023 10:53pm Power of Clinical Training Specialist No February 16 10:53pm Advance Directive Response Recorded Date/ Time Living Will No February 18 4:07pm Power of Clinical Training Specialist No February 18 023 4:07pm Summary Purpose Family History No Family History Records FoundNo Family History Records Found Additional Source Comments Source Comments (unrecognize d section and content) In the event this informatio n is protected by the Federal Confidentiality of Alcohol and Drug Abuse Patient Records regulations: The Federal rules restrict any use of the information to criminally investigate or prosecute any alcohol or drug abuse patient.[facility] the event this information is protected by the Federal Confidentiality of Alcohol and Drug Abuse Patient Records regulations: The Federal rules restrict any use of the information to criminally investigate or prosecute any alcohol or drug abuse patient.[facility] the event this information is protected by the Federal Confidentiality of Alcohol and Drug Abuse Patient Records regulations: The Federal rules restrict any use of the information to criminally investigate or prosecute any alcohol or drug abuse patient.[facility] the event this information is protected by the Federal Confidentiality of Alcohol and Drug Abuse Patient Records regulations: The Federal rules restrict any use of the information to criminally investigate or prosecute any alcohol or drug abuse patient.[facility] the event this information is protected by the Federal Confidentiality of Alcohol and Drug Abuse Patient Records regulations: The Federal rules restrict any use of the information to criminally investigate or prosecute any alcohol or drug abuse patient.[facility] Reason for Visit (unrecogniz ed section and content) Reason Comments Cough Cough, sinus and hea d pressure x 1 week Reason Comments Sore Throat headache and cough x 4 days Reason Comments Sore Throat Congestion, [place], coug h x 2 weeks Reason Comments Sore Throat headache, chills and fever x 1 day strep exposure Reason Comments Ear Problem JACKELINE ear pain x 1 day Care Teams (unrecognized sec tion and content) Instructional Assistant Relationship Specialty Start Date End Date Alana Rodriguez DO [address] [address] [place], [place] [id number] PCP - General Family Medicine 02/12/21 Instructional Assistant Relationship Specialty Start Date End Date Alana Rodriguez DO [address] [place], [place] [id number] PCP - General Family Medicine 02/12/21 Instructional Assistant Relationship Specialty Start Date End Date Alana Rodriguez DO [address], [place] [id number] PCP - General Family Medicine 02/12/21 Team Status: Active Member Role Status Dates Dr. Alana Rodriguez DO Family Provider Active Dr. Alana Rodriguez DO Primary Care Provider Active Team Status: Inactive Member Role Status Dates Dr. Alana Rodriguez DO Primary Care Provider Active Dr. Lionel Barrios DO Emergency Provider Active Team Status: Active Member Role Status Dates Dr. Alana Rodriguez DO Family Provider Active No Primary Care Physician Primary Care Provider Active Team Status: Active Member Role Status Dates Dr. Manolo Tolbert MD Emergency Provider Active No Primary Care Physician Primary Care Provider Active Dr. Enoch Casey MD Admit Provi daniel, Attending Provider, Other Provider Active Team Status: Active Member Role Status Dates Dr. Manolo Tolbert MD Emergency Provider Active No Primary Care Physician Primary Care Provider Active Dr. Enoch Casey MD Admit Provider, Other Pro vider Active Dr. Ronal Trent DO Attending Provider, Other Provider Active Team Status: Inactive Member Role Status Dates Dr. Manolo Tolbert MD Emergency Provider Active No Primary Care Physician Primary Care Provider Active Dr. Enoch Casey MD Admit Provider, Other Pro vider Active Dr. Ronal Trent DO Attending Provider Active Instructional Assistant Relationship Specialty Start Date End Date Alana RodriguezDO [address] [place] [address] PCP - General Family Medicine 02/12/21 Instructional Assistant Relationship Specialty Start Date End Date Alana RodriguezDO [address] [place] [address] PCP - General Family Medicine 02/12/21 Goals (unrecognized section and content) Goals may be documented in a n alternate section INFORMATION SOURCE (unrecogn ized section and content) DATE CREATED AUTHOR 07/20/2024 [facility] DATE CREATED AUTHOR AUTHOR'S ORGANIZ ATION 09/12/[address] [facility] FOR RECORDS PERTAINING TO PATIENTS WHO ARE OR HAVE BEEN ENROLLED IN A CHEMICAL DEPENDENCY/SUBSTANCEABUSE PROGRAM, SOME INFORMATION MAY BE OMITTED. This clinical summary was aggregated from multiple sources. Caution should be exercised in using it in the provision of clinical care. This summary normalizes information from multiple sources, and as a consequence, information in this document may materially change the coding, format and clinical context of patient data. In addition, data may be omitted in some cases. CLINICAL DECISIONS SHOULD BE BASED ON THE PRIMARY CLINICAL RECORDS. [employer] [facility]. provides no warranty or guarantee of the accuracy or completeness of information in this document.
== END | disposition home or self-care (01) ==
LOC: MTLAB 08:33
PROVIDERS: PCP Family Medicine; Referring Provider Family Medicine; Visit Provider Family Medicine
DX: R19.7 Diarrhea, unspecified (principal); R10.9 Unspecified abdominal pain
CPT/HCPCS: 83630; 87493; 87506

== ENCOUNTER → 2025-04-03 | Outpatient (CLI) | payer OTHER, SELFPAY ==
[2025-04-03 12:28] LABS: Hematocrit 40.4 % (37-47); Hemoglobin 13.6 g/dL (12.0-15.0); Immature Granulocytes Count 0.010 X10^3/uL (0.0-0.0); Mean Corp Hgb Conc 33.7 g/dL (32-36); Mean Corpuscular Volume 92.4 fL (81-99); Mean Platelet Vol. 11.1 fl (6.2-12.0); NRBC Flagged by Analyzer 0 % (0-5); Platelet Count 227 K/mm3 (150-450); RBC Distribution Width CV 11.6 % (11.6-14.6); RBC Distribution Width SD 39.4 fl (35.1-43.9); Red Blood Count 4.37 M/mm3 (4.2-5.4); White Blood Count 7.0 K/mm3 (4.4-11.0)
[2025-04-03 12:43] LABS: AST(SGOT) 15 U/L (<=31); Alanine Aminotransfer ALT/SGPT 12 U/L (<=34); Albumin, Serum 4.6 g/dL (3.5-5.0); Alkaline Phosphatase 47 U/L (35-104); Anion Gap 12 (5-15); BUN 10 mg/dL (4-19); BUN/Creat Ratio 13.9 RATIO (10-20); Calcium,Total 9.3 mg/dL (7.6-11.0); Carbon Dioxide 23.1 mmol/L (21.0-32.0); Chloride 103 mmol/L (98-108); Cholesterol 199 mg/dL (<=200); Globulin 2.7 g/dL (2.2-4.2); Glucose 86 mg/dL (70-99); Low Density Lipoprotein Calc. 110 mg/dL; Potassium 3.8 mmol/L (3.3-5.1); Triglycerides 120 mg/dL; Very Low Density Lipoprotein 24 mg/dL (5-40); cholesterol:hdl ratio screen 3.07
== END | disposition home or self-care (01) ==
LOC: MTLAB 10:21
PROVIDERS: PCP Family Medicine; Referring Provider Nurse Practitioner Family; Visit Provider Nurse Practitioner Family
DX: Z00.01 Encounter for general adult medical examination with abnormal findings (principal)
CPT/HCPCS: 36415; 80053; 80061; 85025